=== PATIENT | female | born 1980 | race Caucasian/White ===

== ENCOUNTER 2017-06-21 20:12 | Emergency (ER) | payer OTHER, SELFPAY ==
[2017-06-21 20:48] VITALS: BP 130/86; PULSE 70; RESP 18; TEMP 36.4; O2SAT 100; BMI 37.2
--- NOTE | 2017-06-21 20:57 | HMH.EDUTC ---
[facility] [place] Disposition Clinical Impression: Sinusitis Qualifiers: Sinusitis location: other Chronicity: unspecified Qualified Code(s): J32.9 - Chronic sinusitis, unspecified Disposition: Home, Self-Care Condition on Discharge: Good Instructions: Sinusitis, Sinus Headache, DI for Sinusitis Additional Instructions: Follow up with family doctor if medication still not helping with sinus infection If you continued to have worsening of symptom or have blurred vison go to ER REturn if needed Take medication as prescribed Prescriptions: Doxycycline Monohydrate 100 mg PO BID #14 cap Fluticasone Propionate [Flonase 50mcg nasal spray 16gm] 2 spr NS DAILY #1 bottle Referrals: Ruthie Wright APRN [Primary Care Provider] - Forms: Work/School Release Time of Disposition: 21:11 Medical Decision Making - Medical Records Medical records reviewed: Yes: I reviewed the patient's medical records. Vital Signs: 06/21/17 20:48 Temperature 97.5 F L Temperature Source Temporal Artery Scan Pulse Rate [Right] 70 Respiratory Rate 18 Blood Pressure [Right Arm] 130/86 Blood Pressure Mean [Right Arm] 100 Blood Pressure Source [Right Arm] Automatic Cuff Blood Pressure Position [Right Arm] Sitting 02 Sat by Pulse Oximetry 100 Oxygen Delivery Method Room Air Orders (Tests/Meds): ED MEDICATIONS Discontinued Medications Generic Name Dose Route Start Last Admin Trade Name Jett PRN Reason Stop Dose Admin Ibuprofen 800 mg 06/21/17 21:07 Motrin 400mg Tablet PO 06/21/17 21:08 ONCE ONE Methylprednisolone Sodium Succinate 125 mg 06/21/17 21:05 Solu-Medrol 125mg/2ml Vial IM 06/21/17 21:06 ONCE ONE - Salbador Inquiry Pt receiving controlled substance: No Salbador was queried for this patient: No [facility] [place] HPI - General Stated complaint: Migraine Mode of Arrival: Ambulatory Source of Information: Patient Limitations: No Limitations Description of Symptoms (Recalled from Triage Doc. by RN): STATES SINUS INFECTION, HEADACHE FOR A MONTH, RECENT ZPACK HEENT Symptoms (Recalled from RN notes): Yes Resp Symptoms (Recalled from RN notes): No Skin Symptoms (Recalled from RN notes): No MS Symptoms (Recalled from RN notes): No Functional Status (Recalled from RN notes): N - History of Present Illness Provider Complaint: Patient state that she was seen about a month ago for sinus infection State that she was given a zpack state that it did not help and then she was diagnosed with strep throat and given another zpack state that she is still having sinus pain and pressure along with sinus headache States that she feels like it has continued to get worse and zpacks has not helped to clear it up State that she is having pain and pressure behind her eyes and even her teeth are hurting - Related Data Home Medications Medication Instructions Recorded Confirmed cholecalciferol (vitamin D3) 200 unit PO QDAY 05/31/17 50,000 unit capsule ibuprofen 800 mg tablet 800 mg PO ONCE 05/31/17 loratadine 10 mg tablet 10 mg PO QDAY 05/31/17 omeprazole 10 mg capsule,delayed 10 mg PO ONCE 05/31/17 release ustekinumab 45 mg/0.5 mL 45 mg SUB-Q .Every 3 months ml 05/31/17 subcutaneous syringe Previous Rx's Medication Instructions Recorded Doxycycline Monohydrate 100 mg PO BID #14 cap 06/21/17 Fluticasone Propionate [Flonase 2 spr NS DAILY #1 bottle 06/21/17 50mcg nasal spray 16gm] Allergies Allergy/AdvReac Type Severity Reaction Status Date / Time amoxicillin [AMOXICILLIN] Allergy Unknown Verified 05/31/17 14:00 - Worker's Comp Is this a Worker's Comp case?: No [facility] History I have reviewed the patient's past medical history: Yes Other Surgeries: Yes: Amputation: No Fractures: No - *Social History Smoking Status: Current every day smoker Tobacco Type: cigarettes # Packs/Day (cigarettes): 1 Alcohol Intake: never Substance Use Type: denies use - Psychiatric History Expresses tho
--- NOTE | 2017-06-21 21:05 | ED_ITS ---
[facility] [place] Disposition Clinical Impression: Sinusitis Qualifiers: Sinusitis location: other Chronicity: unspecified Qualified Code(s): J32.9 - Chronic sinusitis, unspecified Disposition: Home, Self-Care Condition on Discharge: Good Instructions: Sinusitis, Sinus Headache, DI for Sinusitis Additional Instructions: Follow up with family doctor if medication still not helping with sinus infection If you continued to have worsening of symptom or have blurred vison go to ER REturn if needed Take medication as prescribed Prescriptions: Doxycycline Monohydrate 100 mg PO BID #14 cap Fluticasone Propionate [Flonase 50mcg nasal spray 16gm] 2 spr NS DAILY #1 bottle Referrals: Ruthie Wright APRN [Primary Care Provider] - Forms: Work/School Release Time of Disposition: 21:11 Medical Decision Making - Medical Records Medical records reviewed: Yes: I reviewed the patient's medical records. Vital Signs: 06/21/17 20:48 Temperature 97.5 F L Temperature Source Temporal Artery Scan Pulse Rate [Right] 70 Respiratory Rate 18 Blood Pressure [Right Arm] 130/86 Blood Pressure Mean [Right Arm] 100 Blood Pressure Source [Right Arm] Automatic Cuff Blood Pressure Position [Right Arm] Sitting 02 Sat by Pulse Oximetry 100 Oxygen Delivery Method Room Air Orders (Tests/Meds): ED MEDICATIONS Discontinued Medications Generic Name Dose Route Start Last Admin Trade Name Jett PRN Reason Stop Dose Admin Ibuprofen 800 mg 06/21/17 21:07 Motrin 400mg Tablet PO 06/21/17 21:08 ONCE ONE Methylprednisolone Sodium Succinate 125 mg 06/21/17 21:05 Solu-Medrol 125mg/2ml Vial IM 06/21/17 21:06 ONCE ONE - Salbador Inquiry Pt receiving controlled substance: No Salbador was queried for this patient: No [facility] [place] HPI - General Stated complaint: Migraine Mode of Arrival: Ambulatory Source of Information: Patient Limitations: No Limitations Description of Symptoms (Recalled from Triage Doc. by RN): STATES SINUS INFECTION, HEADACHE FOR A MONTH, RECENT ZPACK HEENT Symptoms (Recalled from RN notes): Yes Resp Symptoms (Recalled from RN notes): No Skin Symptoms (Recalled from RN notes): No MS Symptoms (Recalled from RN notes): No Functional Status (Recalled from RN notes): N - History of Present Illness Provider Complaint: Patient state that she was seen about a month ago for sinus infection State that she was given a zpack state that it did not help and then she was diagnosed with strep throat and given another zpack state that she is still having sinus pain and pressure along with sinus headache States that she feels like it has continued to get worse and zpacks has not helped to clear it up State that she is having pain and pressure behind her eyes and even her teeth are hurting - Related Data Home Medications Medication Instructions Recorded Confirmed cholecalciferol (vitamin D3) 200 unit PO QDAY 05/31/17 50,000 unit capsule ibuprofen 800 mg tablet 800 mg PO ONCE 05/31/17 loratadine 10 mg tablet 10 mg PO QDAY 05/31/17 omeprazole 10 mg capsule,delayed 10 mg PO ONCE 05/31/17 release ustekinumab 45 mg/0.5 mL 45 mg SUB-Q .Every 3 months ml 05/31/17 subcutaneous syringe Previous Rx's Medication Instructions Recorded Doxycycl
== END 2017-06-21 21:24 | disposition home or self-care (01) ==
PROVIDERS: Emergency Provider Nurse Practitioner; Family Provider Emergency Medicine; PCP Nurse Practitioner Family
DX: J32.9 Chronic sinusitis, unspecified (principal); F17.210 Nicotine dependence, cigarettes, uncomplicated
CPT/HCPCS: 96372; 99201

== ENCOUNTER → 2018-08-23 16:44 | Outpatient (CLI) | payer BC, SELFPAY ==
--- NOTE | 2018-08-23 16:49 | XR_ITS ---
XR chest 2V HISTORY: Cough ITS.REASON: PSORIASIS, HIGH RISK MEDICATION MONITORING ORDERING PHYSICIAN: John Hall MD PATIENT AGE: 38 years Technique: PA and lateral chest COMPARISON: PA and lateral chest 03/16/2017 FINDINGS: No significant change since prior studies. Minimal density at the medial right base I believe is merely due to overlapping vascular shadows and unchanged since prior studiesdensity. Otherwise the lungs appear clear normal interstitial pattern. No pleural effusion. Heart seng and mediastinal structures satisfactory mild dextroscoliosis T-spine stable.. IMPRESSION: Stable chest nothing definitely acute.
== END ==
PROVIDERS: PCP Emergency Medicine; Visit Provider Emergency Medicine
DX: L40.0 Psoriasis vulgaris (principal); Z79.899 Other long term (current) drug therapy
CPT/HCPCS: 71046

== ENCOUNTER → 2018-08-27 11:21 | Outpatient (CLI) | payer BC, SELFPAY ==
[2018-08-27 12:15] LABS: Basophils % 0.3 % (0.1-2.0); Eosinophils # 0.3 K/mm3 (0.0-0.4); Eosinophils % 4.1 % (0.1-12.0); Hematocrit 41.7 % (37.0-47.0); Hemoglobin 13.7 g/dL (12.2-16.2); Lymphocytes # 1.7 K/mm3 (0.7-4.5); Mean Corpuscular HGB Conc 32.9 g/dL (31.8-35.4); Mean Corpuscular Hemoglobin 31.1 pg (27.0-31.2); Mean Corpuscular Volume 94.4 fl (81-99); Mean Platelet Volume 8.3 fl (7.4-10.4); Monocytes # 0.3 K/mm3 (0.1-1.0); Neutrophils # 5.3 K/mm3 (1.8-7.8); Neutrophils % 69.5 % (37.0-80.0); Platelet Count 254 K/mm3 (142-424); Red Blood Count 4.42 M/mm3 (4.20-5.40); Red Cell Distribution Width 13.1 % (11.5-17.5); White Blood Count 7.6 K/mm3 (4.8-10.8)
[2018-08-30 09:48] LABS: QuantiFERON-TB Gold Plus Negative (Negative)
== END ==
PROVIDERS: Visit Provider Physician Assistant Medical
DX: L40.0 Psoriasis vulgaris (principal); Z79.899 Other long term (current) drug therapy
CPT/HCPCS: 36415; 85025; 86480

== ENCOUNTER → 2019-08-29 15:28 | Outpatient (CLI) | payer BC, SELFPAY | PROVIDERS: Visit Provider Nurse Practitioner Family | DX: N39.0 Urinary tract infection, site not specified (principal) | CPT/HCPCS: 87086; 87088; 87186 ==

== ENCOUNTER 2019-12-06 00:21 | Emergency (ER) | payer BC, SELFPAY ==
[2019-12-06 00:32] VITALS: BP 140/96; PULSE 77; RESP 15; O2SAT 99; BMI 31.8
[2019-12-06 01:10] LABS: Urine Pregnancy, HCG Qual. Negative (Negative)
[2019-12-06 01:39] VITALS: BP 123/86; PULSE 70; RESP 15; O2SAT 99
--- NOTE | 2019-12-06 01:45 | HMH.EDHA ---
ED Disposition Clinical Impression: Migraine Qualifiers: Migraine type: with aura Status migrainosus presence: without status migrainosus Intractability: not intractable Qualified Code(s): G43.109 - Migraine with aura, not intractable, without status migrainosus Disposition: Home, Self-Care Condition on Discharge: Good Instructions: DI for Migraine Additional Instructions: call pcp for santi kevin Referrals: Ruthie Wright APRN [Primary Care Provider] - Forms: Work/School Release - Critical Care Critical Care Time: No Attestation: On 12/06/19, the high probability of a clinically significant, sudden or life threatening deterioration of the following system(s) required my full and direct attention, intervention and personal management. The time I documented below is in addition to time spent performing reported procedures but includes the following listed in this critical care notation. Medical Decision Making - Medical Records Medical records reviewed: Yes: I reviewed the patient's medical records. - Salbador Inquiry Pt receiving controlled substance: No Vital Signs: 12/06/19 00:32 12/06/19 01:39 12/06/19 02:01 Pulse Rate [Right Brachial] 77 70 65 Respiratory Rate 15 15 15 Blood Pressure [Right Arm] 140/96 H 123/86 106/69 L Blood Pressure Mean [Right Arm] 110 98 81 Blood Pressure Source [Right Arm] Automatic Cuff Automatic Cuff Automatic Cuff Blood Pressure Position [Right Arm] Sitting Sitting Sitting 02 Sat by Pulse Oximetry 99 99 99 Oxygen Delivery Method Room Air Room Air Room Air - Lab Data Lab Results 12/06/19 00:39: Urine HCG, Qual Negative Orders (Tests/Meds): ED MEDICATIONS Generic Name Dose Route Start Last Admin Trade Name Freq PRN Reason Stop Dose Admin Acetaminophen/Codeine Phosphate 1 stefan 12/06/19 02:20 Acetaminophen W/Codeine #3 Take Home Pack (6) PO 12/06/19 02:21 ONCE ONE Sodium Chloride 1,000 mls @ 999 mls/hr 12/06/19 00:45 12/06/19 01:39 Sod Chlor 0.9% 1000ml Bag IV 12/06/19 01:45 999 mls/hr .Q1H1M LARA Administration Sodium Chloride 8 ml 12/06/19 00:36 12/06/19 01:26 Sodium Chloride 0.9% 10ml Vial IV 01/05/20 00:35 8 ml NEEDED PRN Administration dilute pepcid Discontinued Medications Generic Name Dose Route Start Last Admin Trade Name Jett PRN Reason Stop Dose Admin Famotidine 20 mg 12/06/19 00:36 12/06/19 01:26 Pepcid 20mg/2ml Vial IV 12/06/19 00:37 20 mg ONCE ONE Administration Ketorolac Tromethamine 30 mg 12/06/19 00:36 12/06/19 01:27 Toradol 30mg/Ml Vial IV 12/06/19 00:37 30 mg ONCE ONE Administration Methylprednisolone Sodium Succinate 125 mg 12/06/19 00:36 12/06/19 01:27 Solu-Medrol 125mg/2ml Vial IV 12/06/19 00:37 125 mg ONCE ONE Administration Metoclopramide HCl 10 mg 12/06/19 00:36 12/06/19 01:26 Reglan 10mg/2ml Vial IVP 12/06/19 00:37 10 mg ONCE ONE Administration Ondansetron HCl 4 mg 12/06/19 00:36 12/06/19 01:27 Zofran 4mg/2ml Vial IV 12/06/19 00:37 4 mg ONCE ONE Administration Headache HPI - General Chief Complaint: Headache Stated Complaint: Migrane Headache Time Seen by Provider: 12/06/19 01:35 Mode of Arrival: Ambulatory Source of Information: Patient, Medical Record Limitations: No Limitations Description of Symptoms (Recalled from ER Triage Doc. by RN): Patient reports a migraine that she cant get any relief from after taking aleve. Patient reports she has a hx of migraines and gets them often. Patient reports she has an appt with a neurologist december 19. - History of Present Illness HPI Narrative: acute excerbation of migraine - has pending neuro eval with about 3 ahuja per week MD Complaint: migraine Onset (ago): hour(s) Onset description: gradual Location: diffuse Severity: similar to previous episodes Quality: sharp, similar to previous headaches Context: occurred at rest Associated symptoms: none Other symptoms: chest pain Tr
[2019-12-06 02:01] VITALS: BP 106/69; PULSE 65; RESP 15; O2SAT 99
[2019-12-06 02:27] VITALS: BP 118/67; PULSE 68; RESP 16; TEMP 36.6; O2SAT 99
== END 2019-12-06 02:27 | disposition home or self-care (01) ==
PROVIDERS: Emergency Provider Emergency Medicine; PCP Nurse Practitioner Family
DX: G43.109 Migraine with aura, not intractable, without status migrainosus (principal); Z88.1 Allergy status to other antibiotic agents; K21.9 Gastro-esophageal reflux disease without esophagitis; F17.210 Nicotine dependence, cigarettes, uncomplicated
CPT/HCPCS: 81025; 96365; 96375; 99282; J2405

== ENCOUNTER → 2020-01-20 08:56 | Outpatient (POV) | payer BC, SELFPAY | PROVIDERS: Visit Provider Nurse Practitioner Family | DX: Z00.00 Encounter for general adult medical examination without abnormal findings (principal) ==

== ENCOUNTER → 2020-02-20 10:25 | Outpatient (CLI) | payer BC, SELFPAY ==
[2020-02-20 13:24] LABS: Coronavirus 19 IgG Antibody Negative (Negative); Coronavirus 19 IgM Antibody Negative (Negative)
== END ==
PROVIDERS: Visit Provider Internal Medicine Gastroenterology
DX: Z01.89 Encounter for other specified special examinations (principal); Z12.11 Encounter for screening for malignant neoplasm of colon; Z13.810 Encounter for screening for upper gastrointestinal disorder; R19.7 Diarrhea, unspecified; R63.4 Abnormal weight loss
CPT/HCPCS: 36415; 86328

== ENCOUNTER 2020-02-21 08:19 | Day surgery (SDC) | payer BC, SELFPAY ==
[2020-02-18 08:55] VITALS: BMI 30.6
[2020-02-21] VITALS (7 sets, daily range): BP systolic 102–152; BP diastolic 54–91; PULSE 43–83; RESP 18; TEMP 36.2–36.4; O2SAT 93–100
[2020-02-21 09:11] LABS: Urine Pregnancy, HCG Qual. Negative (Negative)
--- NOTE | 2020-02-21 09:55 | HMH.PROC ---
[facility] Procedure Note Procedure Note:: Upper Endoscopy Procedure Report: Esophagogastroduodenoscopy with cold biopsies Endoscopost: Garrick Haro II, MD Referring Physician: Carolyn MCDANIELS Date of Procedure: February 21, 2020 Equipment: Olympus GIF 180 standard upper endoscope Sedation: MAC sedation Indications: Mrs. Swain is a 39-year-old female with dyspepsia. She has had nausea, bloating and abdominal discomfort. She has had a long history of heartburn and reflux for which she has taken omeprazole. She did have gallbladder removal in 2009. She reports some belching and early satiety. She does report bowel irregularity with postprandial bowel urgency and diarrhea. She also has a history of occasional constipation and skipping days without a bowel movement. She is having on average 4 loose watery bowel movements per day but can have up to 12 bowel movements per day. She had a CAT scan in May 2019 that showed a marked amount of fecal retention. This is her first upper endoscopy. Procedure: Prior to the procedure, a history and physical exam was performed, and patient's medications and allergies were reviewed. The risks, benefits and alternatives of the sedation and procedure were discussed with the patient. All questions were answered and informed consent was obtained. The patient was brought to the procedure room. Patient identification and proposed procedure were verified by the physician and the nurse. The patient was placed in a left lateral decubitus position and the scope was passed under direct vision. Throughout the procedure, the patient's blood pressure, pulse, and oxygen saturations were monitored continuously. The upper GI endoscopy was accomplished without difficulty. The patient tolerated the procedure well. Findings: The scope was passed directly into the upper esophagus and advanced to the third portion of the duodenum. The post bulbar duodenum and duodenal bulb were normal with normal mucosa and conniventes. Cold biopsies were taken from the post bulbar duodenum to rule out celiac disease. The scope was withdrawn through a normal duodenal bulb and pylorus into the stomach. There was moderate to marked bile reflux with moderate linear reactive gastropathy of the antrum and body of the stomach. There was some gastric atrophy/atrophic gastritis with loss of rugal folds and increased vascular pattern in the body and fundus of the stomach. Biopsies were taken from the gastric antrum separately from biopsies taken from the gastric fundus to rule out atrophic gastritis. Upon retroflexion there was no hiatal hernia. The scope was then withdrawn into the esophagus. There was a serrated Z line. Biopsies were obtained. There was no evidence of reflux esophagitis or Bell's. There were tertiary contractions and evidence of moderate esophageal dysmotility. The remainder of the esophageal mucosa was normal. Impression: 1. Nonerosive GERD with moderate esophageal dysmotility 2. Bile reflux with moderate linear reactive gastropathy and mild chronic atrophic gastritis Plan: I will follow-up the biopsies. I do feel that the patient has functional dyspepsia and functional bowel disease/IBS. We will discuss dietary measures and treatment options. I will proceed with diagnostic colonoscopy.
--- NOTE | 2020-02-21 09:58 | P.PN_ITS ---
[facility] Anesthesia Checklist - Patient Identification Patient Identification: Arm Band, Verbal (Name & ) - Structural Data Admitted From: Home Planned Operative Procedure/s: EGD/Colonoscopy Consent for Planned Operative Procedure(s) Verified: Yes Verified Documents: Surgical Consent, History and Physical - NPO Status Verified Time NPO: 00:00 - Chart Verification Results Verified: HCG - Additional verifications Patient : No Anesthesia Reactions: No - Airway Assessment C-Spine Mobility Assessed: Yes TMJ Mobility Assessed: Yes Dentition: Edentulous - Neurological Assessment Level of Consciousness: Awake, Alert, Appropriate, Follows Commands Hx Seizures: No Numbness or tingling in extremities: No - Anesthesia Plan Anesthesia Risk discussed: Yes Anesthesia Plan: Verified ASA Class: II Anesthesia Type: MAC [facility] History I have reviewed the patient's past medical history: Yes Medical History: Reports:: Anxiety, Gastroesophageal Reflux Disease(GERD), Migraine Denies:: Cancer, Diabetes Mellitus Type 1, Diabetes Mellitus Type 2, Hypertension, MRSA, Seizures *Have you ever received a pneumonia vaccine?: No *Have you received a flu vaccine this season?: No Other Medical History: Reports: Arthritis, Other Comment:: Obesity Anesthesia experience/problems:: States she has difficulty breathing under anesthesia Other Surgeries: Yes: Cholecystectomy, Amputation: No Fractures: No - *Social History Smoking Status: Current every day smoker Tobacco Type: cigarettes # Packs/Day (cigarettes): 1 Alcohol Intake: current Alcohol Intake Frequency:: holidays/special occasions only Substance Use Type: denies use *Occupational Status:: employed Housing: house Household Members: family *Travel in the last 8 weeks: None - Psychiatric History Pschychiatric History:: Reports:: Anxiety Family Hx:: Diabetes, Cancer, Stroke, Hypertension, Heart Attack
--- NOTE | 2020-02-21 10:19 | HMH.PROC ---
[facility] Procedure Note Procedure Note:: Colonoscopy Procedure Report: Colonoscopy with cold snare polypectomy Endoscopist: Garrick Haro II, MD Referring physician: Carolyn MCDANIELS Date of Procedure: February 21, 2020 Equipment: Olympus 180 variable stiffness pediatric colonoscope Sedation: MAC sedation Indication: Mrs. Swain is a 39-year-old female with abdominal discomfort (generalized) and abnormal bowel function. She does have postprandial bowel urgency and diarrhea. She has intermittent alternating constipation. Her CAT scan of the abdomen in May 2019 showed fecal retention. She reports no rectal bleeding or family history of colon cancer. Procedure: Prior to the procedure, a history and physical exam was performed, and patient's medications and allergies were reviewed. The risks, benefits and alternatives of the sedation and procedure were discussed with the patient. All questions were answered and informed consent was obtained. The patient was brought to the procedure room. Patient identification and proposed procedure were verified by the physician and the nurse. The patient was placed in a left lateral decubitus position and the scope was passed under direct vision. Throughout the procedure, the patient's blood pressure, pulse, and oxygen saturations were monitored continuously. The colonoscopy was accomplished without difficulty. The patient tolerated the procedure well. Findings: On digital rectal examination there was normal rectal tone. There were no external hemorrhoids. The colonoscope was introduced through the anal canal to the rectum and advanced to the cecum. The ileocecal valve and appendiceal orifice were identified. The scope was advanced a short distance into the ileum which appeared grossly normal. The scope was then withdrawn into the colon. The cecum was normal. There was some diverticulosis on the right side greater than the left side. There was a diminutive polyp in the transverse colon x1 (4 mm) and rectosigmoid x1 (2 to 3 mm). Both were removed via cold snare polypectomy. The rectosigmoid polyp was very small and not retrieved. The remainder of the colonic mucosa was normal with no other mucosal abnormalities identified. Upon retroflexion within the rectum there were grade 1-2 internal hemorrhoids.The preparation was excellent throughout with [place] Preparation Score of 9. The cecal time was 12 minutes. Impression: 1. Diminutive colonic polyps x2 2. Pandiverticulosis (right side greater than left side) 3. Grade 1-2 internal hemorrhoids Plan: I will follow-up the polyp histology and recommend repeat screening/surveillance in 5 years if the polyp is adenomatous. I would encourage a fiber bowel regimen on a long-term daily maintenance basis.
== END 2020-02-21 11:15 | disposition home or self-care (01) ==
LOC: OUTP 08:22
PROVIDERS: PCP Emergency Medicine; Visit Provider Internal Medicine Gastroenterology
PROC: 0DJ08ZZ Inspection of Upper Intestinal Tract, Via Natural or Artificial Opening Endoscopic (ICD-10-PCS; CPT 43235; principal; 2020-02-21 09:00)
DX: K21.9 Gastro-esophageal reflux disease without esophagitis (principal); K22.4 Dyskinesia of esophagus; K31.9 Disease of stomach and duodenum, unspecified; K29.40 Chronic atrophic gastritis without bleeding; G43.709 Chronic migraine without aura, not intractable, without status migrainosus; Z88.1 Allergy status to other antibiotic agents; Z88.5 Allergy status to narcotic agent; Z79.899 Other long term (current) drug therapy
CPT/HCPCS: 43239; 81025

== ENCOUNTER → 2020-04-09 14:16 | Outpatient (CLI) | payer BC, SELFPAY | PROVIDERS: PCP Nurse Practitioner Family; Visit Provider Nurse Practitioner Family | DX: Z03.818 Encounter for observation for suspected exposure to other biological agents ruled out (principal) | CPT/HCPCS: U0003 ==

== ENCOUNTER → 2021-03-31 15:23 | Outpatient (CLI) | payer BC, SELFPAY ==
[2021-03-31 15:35] LABS: Basophils # 0.1 K/mm3 (0-0.2); Basophils % 0.9 % (0.1-2.0); Eosinophils # 0.3 K/mm3 (0.0-0.4); Eosinophils % 3.2 % (0.1-12.0); Hematocrit 42.7 % (37.0-47.0); Lymphocytes # 2.9 K/mm3 (0.7-4.5); Lymphocytes % 28.2 % (10-50); Mean Corpuscular HGB Conc 32.8 g/dL (31.8-35.4); Mean Corpuscular Hemoglobin 32.2 pg (27.0-31.2); Mean Corpuscular Volume 98.2 fl (81-99); Mean Platelet Volume 10.9 fl (7.4-10.4); Monocytes # 0.6 K/mm3 (0.1-1.0); Monocytes % 5.5 % (1.7-9.3); Neutrophils # 6.4 K/mm3 (1.8-7.8); Neutrophils % 62.3 % (37.0-80.0); Platelet Count 311 K/mm3 (142-424); Red Blood Count 4.34 M/mm3 (4.20-5.40); Red Cell Distribution Width 13.5 % (11.5-17.5); White Blood Count 10.3 K/mm3 (4.8-10.8)
[2021-03-31 15:49] LABS: Chloride 108 mmol/L (98-107)
[2021-03-31 15:50] LABS: Potassium 3.9 mmoL/L (3.5-5.1); Sodium 142 mmol/L (136-145)
[2021-03-31 15:52] LABS: Blood Urea Nitrogen 10 mg/dl (7-17); Estimated Glomerular Filt Rate 111 ml/min (>60); GFR (African American) 134 ML/MIN (>60)
[2021-03-31 15:53] LABS: Alanine Aminotransferase 14 U/L (12-78); Albumin/Globulin Ratio 1.4 (1.1-1.8); Alkaline Phosphatase 84 U/L (38-126); Anion Gap 13.9 mEq/L (5-15); Aspartate Amino Transferase 21 U/L (14-36); Bilirubin,Total 0.5 mg/dl (0.2-1.3); Calcium 9.3 mg/dl (8.4-10.2); Carbon Dioxide 24 mmol/L (22.0-30.0); Chol/HDL Ratio 3.9 (1-3.5); Cholesterol 202 mg/dl (140-200); Globulin 2.9 g/dL (1.3-3.2); Glucose 74 mg/dl (74-100); HDL Cholesterol 52 mg/dl (40-60); Total Protein,Serum 6.9 g/dl (6.3-8.2); Triglycerides 168 mg/dl (30-150); VLDL Cholesterol 34 mg/dL (0-40)
[2021-03-31 16:04] LABS: Direct LDL Cholesterol 133.22 mg/dL (100-129)
[2021-03-31 16:10] LABS: T4 (Thyroxine) 7.8 ug/dl (5.53-11.0)
[2021-03-31 16:19] LABS: 25-OH Vitamin D, Total 22.6 ng/mL (30-100)
== END ==
PROVIDERS: Visit Provider Nurse Practitioner Family
DX: I10 Essential (primary) hypertension (principal); E55.9 Vitamin D deficiency, unspecified
CPT/HCPCS: 80053; 80061; 82306; 84436; 84443; 85025

== ENCOUNTER → 2021-08-02 15:48 | Outpatient (CLI) | payer BC, SELFPAY ==
--- NOTE | 2021-08-02 16:27 | XR_ITS ---
PROCEDURE INFORMATION: Exam: XR Left Foot Exam date and time: 08/02/2021 4:27 PM Age: 41 years old Clinical indication: Pain; Foot; Left; Additional info: Foot pain TECHNIQUE: Imaging protocol: XR Left foot. Views: 3 or more views. COMPARISON: No relevant prior studies available. FINDINGS: Bones/joints: There is no evidence of acute fracture. There is no evidence of joint malalignment or dislocation. Soft tissues: No focal soft tissue swelling. IMPRESSION: 1. No evidence of acute fracture. 2. No evidence of acute dislocation.
--- NOTE | 2021-08-02 16:27 | XR_ITS ---
PROCEDURE INFORMATION: Exam: XR Left Ankle Exam date and time: 08/02/2021 4:27 PM Age: 41 years old Clinical indication: Pain; Ankle; Left TECHNIQUE: Imaging protocol: XR Left ankle. Views: 3 or more views. COMPARISON: No relevant prior studies available. FINDINGS: Bones/joints: There is no evidence of acute fracture. There is no evidence of joint malalignment or dislocation. Soft tissues: No focal soft tissue swelling. IMPRESSION: 1. No evidence of acute fracture. 2. No evidence of acute dislocation.
[2021-08-02 16:54] LABS: Basophils # 0.1 K/mm3 (0-0.2); Eosinophils # 0.2 K/mm3 (0.0-0.4); Eosinophils % 3.3 % (0.1-12.0); Hemoglobin 14.8 g/dL (12.2-16.2); Lymphocytes # 2.7 K/mm3 (0.7-4.5); Lymphocytes % 37.4 % (10-50); Mean Corpuscular HGB Conc 32.1 g/dL (31.8-35.4); Mean Corpuscular Hemoglobin 31.6 pg (27.0-31.2); Mean Corpuscular Volume 98.3 fl (81-99); Monocytes # 0.4 K/mm3 (0.1-1.0); Neutrophils # 3.8 K/mm3 (1.8-7.8); Neutrophils % 52.3 % (37.0-80.0); Platelet Count 288 K/mm3 (142-424); Red Blood Count 4.68 M/mm3 (4.20-5.40); Red Cell Distribution Width 13.5 % (11.5-17.5); White Blood Count 7.2 K/mm3 (4.8-10.8)
[2021-08-02 17:25] LABS: Alanine Aminotransferase 20 U/L (12-78); Albumin Level 4.2 g/dl (3.5-5.0); Albumin/Globulin Ratio 1.4 (1.1-1.8); Alkaline Phosphatase 85 U/L (38-126); Anion Gap 10.3 mEq/L (5-15); Aspartate Amino Transferase 21 U/L (14-36); Bilirubin,Total 0.6 mg/dl (0.2-1.3); Blood Urea Nitrogen 9 mg/dl (7-17); Carbon Dioxide 26 mmol/L (22.0-30.0); Chloride 106 mmol/L (98-107); Estimated Glomerular Filt Rate 93 ml/min (>60); GFR (African American) 112 ML/MIN (>60); Glucose 86 mg/dl (74-100); Potassium 4.3 mmoL/L (3.5-5.1); Sodium 138 mmol/L (136-145); Total Protein,Serum 7.2 g/dl (6.3-8.2)
[2021-08-02 17:31] LABS: C-Reactive Protein 10.5 mg/L (0-4)
[2021-08-02 17:36] LABS: Erythrocyte Sedimentation Rate 17 mm/hr (0-20)
[2021-08-04 13:12] LABS: Anti-Centromere B Antibodies <0.2 AI (0.0-0.9); Anti-DNA (DS) Ab Qn <1 IU/mL (0-9); Anti-Jo-1 <0.2 AI (0.0-0.9); Anti-Smith Antibody <0.2 AI (0.0-0.9); Antichromatin Antibodies <0.2 AI (0.0-0.9); Antiscleroderma-70 Antibodies <0.2 AI (0.0-0.9); RNP Antibodies <0.2 AI (0.0-0.9); Sjogren's Anti-SS-A <0.2 AI (0.0-0.9); Sjogren's Anti-SS-B <0.2 AI (0.0-0.9)
[2021-08-04 17:20] LABS: Lupus Reflex Interpretation Comment: (.); PTT-LA 36.8 sec (0.0-51.9); dRVVT 43.9 sec (0.0-47.0)
== END ==
PROVIDERS: PCP Emergency Medicine; Visit Provider Nurse Practitioner Family
DX: M25.572 Pain in left ankle and joints of left foot (principal); R53.83 Other fatigue; M25.50 Pain in unspecified joint
CPT/HCPCS: 36415; 73610; 73630; 80053; 85025; 85613; 85651; 86140; 86225; 86235

== ENCOUNTER 2021-08-02 16:16 | Outpatient (RCR) | payer BC, SELFPAY | END 2021-08-02 17:00 | disposition home or self-care (01) | LOC: PT 16:16 | PROVIDERS: Visit Provider Nurse Practitioner Family | DX: M79.605 Pain in left leg (principal) | CPT/HCPCS: 97760 ==

== ENCOUNTER 2021-08-04 13:43 | Emergency (ER) | payer BC, SELFPAY ==
[2021-08-04 13:45] VITALS: BP 152/83; PULSE 74; RESP 18; TEMP 36.7; O2SAT 97; BMI 33.6
--- NOTE | 2021-08-04 14:09 | HMH.EDGENADL ---
ED Disposition Clinical Impression: Chronic pain of left ankle Disposition: Home, Self-Care Condition on Discharge: Good Instructions: DI for Ankle Pain Additional Instructions: Continue orthopedic boot. Toradol as prescribed. Do not take ibuprofen while taking Toradol. Follow-up with podiatry, Dr. Burnham. Call to make an appointment. Prescriptions: Ketorolac Tromethamine [Toradol 10mg tablet] 10 mg PO Q6HP PRN #10 tab PRN Reason: Moderate Pain Transmission Status: Pending to [id number] Referrals: John Hall MD [Primary Care Provider] - Tiffany Burnham DPM [Staff Physician] - Forms: Work/School Release - Critical Care Critical Care Time: No Attestation: On 08/04/21, the high probability of a clinically significant, sudden or life threatening deterioration of the following system(s) required my full and direct attention, intervention and personal management. The time I documented below is in addition to time spent performing reported procedures but includes the following listed in this critical care notation. Medical Decision Making - Medical Records Medical records reviewed: Yes: I reviewed the patient's medical records. MR Comment: Reviewed x-ray reports from 08/02/2021, ankle and foot. See below. - Salbador Inquiry Pt receiving controlled substance: No Vital Signs: 08/04/21 13:45 Temperature 98.1 F Temperature Source Oral Pulse Rate [Right Radial] 74 Respiratory Rate 18 Blood Pressure [Right Arm] 152/83 H Blood Pressure Mean [Right Arm] 106 Blood Pressure Source [Right Arm] Automatic Cuff Blood Pressure Position [Right Arm] Sitting 02 Sat by Pulse Oximetry 97 Oxygen Delivery Method Room Air Orders (Tests/Meds): PROCEDURE INFORMATION: Exam: XR Left Foot Exam date and time: 08/02/2021 4:27 PM Age: 41 years old Clinical indication: Pain; Foot; Left; Additional info: Foot pain TECHNIQUE: Imaging protocol: XR Left foot. Views: 3 or more views. COMPARISON: No relevant prior studies available. FINDINGS: Bones/joints: There is no evidence of acute fracture. There is no evidence of joint malalignment or dislocation. Soft tissues: No focal soft tissue swelling. IMPRESSION: 1. No evidence of acute fracture. 2. No evidence of acute dislocation. EDURE INFORMATION: Exam: XR Left Ankle Exam date and time: 08/02/2021 4:27 PM Age: 41 years old Clinical indication: Pain; Ankle; Left TECHNIQUE: Imaging protocol: XR Left ankle. Views: 3 or more views. COMPARISON: No relevant prior studies available. FINDINGS: Bones/joints: There is no evidence of acute fracture. There is no evidence of joint malalignment or dislocation. Soft tissues: No focal soft tissue swelling. IMPRESSION: 1. No evidence of acute fracture. 2. No evidence of acute dislocation. General Adult HPI - General Chief complaint: PAIN Stated complaint: left ankle pain, no recent accident Time Seen by Provider: 08/04/21 14:09 Mode of Arrival: Ambulatory Limitations: No Limitations Description of Symptoms (Recalled from ER Triage Doc. by RN): Pt c/o L ankle pain, no recent injury, reports an old fracture several years ago. Pt reports worsening pain over the past month. Pt describes pain as burning and aching. - History of Present Illness HPI narrative: Complains of left ankle pain. She has chronic left ankle pain since she fractured it about 10 years ago. She describes a spiral fracture. 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 Because of that she thinks that it never healed right and she has had chronic pain ever since. However, recently the pain has gotten worse. She describes a burning sensation in the region of both malleoli and around the back of t
[2021-08-04 14:42] VITALS: BP 123/65; PULSE 78; RESP 16; TEMP 36.6; O2SAT 98
== END 2021-08-04 14:43 | disposition home or self-care (01) ==
PROVIDERS: Emergency Provider Emergency Medicine; PCP Emergency Medicine
DX: M25.572 Pain in left ankle and joints of left foot (principal); K21.9 Gastro-esophageal reflux disease without esophagitis; F41.9 Anxiety disorder, unspecified; G43.709 Chronic migraine without aura, not intractable, without status migrainosus; F17.210 Nicotine dependence, cigarettes, uncomplicated; Z79.899 Other long term (current) drug therapy
CPT/HCPCS: 96372; 99283

== ENCOUNTER → 2021-08-13 16:00 | Outpatient (CLI) | payer BC, SELFPAY ==
[2021-08-13 14:51] LABS: Chol/HDL Ratio 3.3 (1-3.5); Cholesterol 209 mg/dl (140-200); HDL Cholesterol 63 mg/dl (40-60); Triglycerides 64 mg/dl (30-150); VLDL Cholesterol 13 mg/dL (0-40)
[2021-08-13 15:01] LABS: Direct LDL Cholesterol 119.95 mg/dL (100-129)
[2021-08-13 15:10] LABS: 25-OH Vitamin D, Total 18.6 ng/mL (30-100)
[2021-08-13 15:23] LABS: Thyroid Stimulating Hormone 4.09 uIU/mL (0.465-4.68)
== END ==
PROVIDERS: Visit Provider Nurse Practitioner Family
DX: I10 Essential (primary) hypertension (principal); E55.9 Vitamin D deficiency, unspecified; Z79.899 Other long term (current) drug therapy
CPT/HCPCS: 80061; 82306; 84443

== ENCOUNTER → 2021-09-16 13:27 | Outpatient (CLI) | payer BC, SELFPAY ==
--- NOTE | 2021-09-16 13:27 | MR_ITS ---
FINAL REPORT CLINICAL HISTORY: left ankle pain x10 years first injury x 9 years pain when walking and standing for long periods of time FINDINGS: Multiplanar MR imaging of the left ankle was performed without contrast. The bony structures are intact without evidence of fracture. There is pes planus deformity. The mortise is intact. There is an os trigonum measuring 1.2 cm. Edema is seen within the os trigonum. The ligaments are intact without evidence of injury. The flexor and extensor tendons are intact. The posterior plantar aponeurosis is intact. Small joint effusion is seen. The musculature is intact. There is no evidence of soft tissue mass or cyst. IMPRESSION: Pes planus deformity and mild joint effusion. Reviewed, Interpreted and Dictated by Sarmad Shah MD Transcribed by Elle Herron Authenticated by Sarmad Shah MD on 09/16/2021 04:37:[address] [facility]
== END ==
PROVIDERS: PCP Emergency Medicine; Visit Provider Podiatrist
DX: M25.572 Pain in left ankle and joints of left foot (principal); M79.672 Pain in left foot
CPT/HCPCS: 73721

== ENCOUNTER → 2021-10-21 15:38 | Outpatient (CLI) | payer BC, SELFPAY | PROVIDERS: PCP Emergency Medicine; Visit Provider Nurse Practitioner Family | DX: R06.00 Dyspnea, unspecified (principal); R07.9 Chest pain, unspecified; R42 Dizziness and giddiness; R00.2 Palpitations; R20.0 Anesthesia of skin; R20.2 Paresthesia of skin | CPT/HCPCS: 36415; 83735; 85025; 93270 ==

== ENCOUNTER 2022-01-09 18:53 | Emergency (ER) | payer BC, SELFPAY ==
[2022-01-09 19:15] VITALS: BP 147/90; PULSE 89; RESP 21; TEMP 37; O2SAT 98; BMI 33.6
--- NOTE | 2022-01-09 19:30 | HMH.EDUTC ---
[facility] [place] Disposition Clinical Impression: Chest discomfort Disposition: Still a Patient Condition on Discharge: Fair Referrals: John Hall MD [Primary Care Provider] - Time of Disposition: 19:38 Medical Decision Making - Salbador Inquiry Pt receiving controlled substance: No Salbador was queried for this patient: No Vital Signs: 01/09/22 19:15 Temperature 98.6 F Temperature Source Oral Pulse Rate [Right Brachial] 89 Respiratory Rate 21 Blood Pressure [Right Arm] 147/90 H Blood Pressure Mean [Right Arm] 109 Blood Pressure Source [Right Arm] Automatic Cuff Blood Pressure Position [Right Arm] Sitting 02 Sat by Pulse Oximetry 98 Oxygen Delivery Method Room Air Medical Decision Narrative: Due to patient complaining of pain/pressure in her chest, SOA, Nausea and pain in her abdomen with indigestion and patient reporting this is not like her normal GERD symptoms discussed with patient and will transfer to the ED for further work up and evaluation and patient agreed Called ED Spoke with Bibiana and patient was moved to room 4 [facility] [place] HPI - General Stated complaint: cough,runny nose,sabino Time Seen by Provider: 01/09/22 19:20 Mode of Arrival: Ambulatory Source of Information: Patient Limitations: No Limitations Description of Symptoms (Recalled from Triage Doc. by RN): PATIENT C/O CHEST PAIN/PRESSURE, INDIGESTION, FOUL-SMELLING BURPS, INTERMITTEN SOA, AND LEFT ABDOMINAL PAIN SINCE MONDAY HEENT Symptoms (Recalled from RN notes): No Resp Symptoms (Recalled from RN notes): No Skin Symptoms (Recalled from RN notes): No MS Symptoms (Recalled from RN notes): No Functional Status (Recalled from RN notes): WNL - History of Present Illness Provider Complaint: Patient states that she started on Mon with pain/pressure like feeling in chest States that she has GERD but this doesnt feel like that States that she has been having SOA on and off, sharp pain in her left side of abdomen and pressure like feeling in her upper abdomen States that also she has been having foul smelling burps and feels like you can smell it on her breath States that pain was worse yesterday and she had a burning like feeling in her chest States that she has felt like her breathing was a little better after hot shower felt like it opened her up but still having the pain and pressure in her chest and abdomen so she came in - Related Data Home Medications Medication Instructions Recorded Confirmed ibuprofen 600 mg tablet 600 mg PO DAILY tab 12/18/19 10/21/21 omeprazole 20 mg capsule,delayed 20 mg PO DAILY 12/18/19 10/21/21 release fexofenadine 180 mg tablet 180 mg PO DAILY 04/09/20 10/21/21 Previous Rx's Medication Instructions Recorded escitalopram oxalate 10 mg tablet 10 mg PO DAILY #30 tab 03/31/21 diclofenac sodium 1 % topical gel 2 g TOPICAL QID #100 g 08/02/21 Ketorolac Tromethamine [Toradol 10 mg PO Q6HP PRN #10 tab 08/04/21 10mg tablet] cholecalciferol (vitamin D3) 1,250 1,250 mcg PO WEEKLY #7 tab 08/18/21 mcg (50,000 unit) tablet Allergies Allergy/AdvReac Type Severity Reaction Status Date / Time amoxicillin [AMOXICILLIN] Allergy Unknown Verified 10/21/21 14:52 morphine AdvReac Intermediate Vomiting Verified 10/21/21 14:52 - Worker's Comp Is this a Worker's Comp case?: No [facility] History - Hepatitis A Screen Attestation statement:: This patient has been screened for Hepatitis A risk factors. I have reviewed the patient's past medical history: Yes Medical History: Reports:: Anxiety, Gastroesophageal Reflux Disease(GERD), Migraine Denies:: Cancer, Diabetes Mellitus Type 1, Diabetes Mellitus Type 2, Hypertension, MRSA, Seizures Other Medical History: Reports: Arthritis, Other Comment: Obesity Other Surgeries: Yes: Cholecystectomy, Colonoscopy, Amputation: No Fractures: No Comment: Gallbladder Removal - Social History Smoking Status: Current every day smoker Tobacco Type: cigarettes # Packs/Day
--- NOTE | 2022-01-09 19:30 | PC.NURSE ---
PATIENT SENT TO ER PER Kaye COATES APRN FOR FUTHER EVALUATION. REPORT GIVEN TO Catherine DE LEÓN RN BY Kaye COATES APRN
[2022-01-09 19:36] LABS: Microscopic, Urine URINE MICROSCOPIC (MICROSCOPIC)
[2022-01-09 19:39] LABS: Appearance,Urine CLEAR (Clear); Blood, Urine 2+ (Negative); Color,Urine AMBER (Yellow); Glucose,Urine (UA) Negative (Negative); Ketones,Urine TRACE (Negative); Leukocyte Esterase,Urine Negative (Negative); Nitrate,Urine Negative (Negative); Protein,Urine TRACE (Negative); Specific Gravity, Urine >= 1.030 (1.005-1.030)
[2022-01-09 19:46] LABS: Bilirubin,Urine Negative (Negative)
[2022-01-09 19:47] LABS: Amorphous Sediment,Urine 1+ /lpf; Mucus,Urine 4+ /lpf; WBC,Urine Occasional #/hpf (0-3)
[2022-01-09 19:49] VITALS: BP 136/93; PULSE 65; RESP 18; TEMP 36.6; O2SAT 97; BMI 33.6
--- NOTE | 2022-01-09 19:56 | ECG_ITS ---
APPROVED REPORT Exam: Resting ECG HR:57 bpm ECG Measurements Heart Rate 57 AXES IN 148 P 55 QRSd 88 QRS 29 QT 388 T 40 QTc 382 Conclusion SINUS BRADYCARDIA WITH SINUS ARRHYTHMIA LOW QRS VOLTAGE IN PRECORDIAL LEADS [QRS DEFLECTION < 1.0 mV IN CHEST LEADS] BORDERLINE ECG UNCONFIRMED REPORT Electronically signed by : Tru Harper MD 01/11/2022 21:29:53
--- NOTE | 2022-01-09 19:56 | XR_ITS ---
PROCEDURE INFORMATION: Exam: XR Chest Exam date and time: 01/09/2022 8:02 PM Age: 41 years old Clinical indication: Sternal or substernal pain; Additional info: Cp TECHNIQUE: Imaging protocol: Radiologic exam of the chest. Views: 2 views. COMPARISON: CR CXR2V XR chest 2V 08/23/2018 4:51 PM FINDINGS: Lungs: No consolidation. Pleural spaces: No pneumothorax. Heart/Mediastinum: No cardiomegaly. Bones/joints: Scoliosis. IMPRESSION: No acute findings. PROCEDURE INFORMATION: Exam: XR Abdomen Exam date and time: 01/09/2022 8:02 PM Age: 41 years old Clinical indication: Sternal or substernal pain; Additional info: Cp TECHNIQUE: Imaging protocol: Radiologic exam of the abdomen. Views: 2 Views. Upright and supine views. COMPARISON: CT ABDOMEN PELVIS WO CON 06/09/2019 2:00 PM FINDINGS: Gastrointestinal tract: Normal. No bowel dilation. Intraperitoneal space: Post cholecystectomy change. No free air. Bones/joints: Scoliosis. IMPRESSION: No acute findings.
[2022-01-09 20:15] LABS: Alanine Aminotransferase 31 U/L (12-78); Albumin Level 4.1 g/dl (3.5-5.0); Albumin/Globulin Ratio 1.1 (1.1-1.8); Alkaline Phosphatase 81 U/L (38-126); Amylase 57 U/L (30-110); Anion Gap 9.5 mEq/L (5-15); Aspartate Amino Transferase 40 U/L (14-36); Bilirubin,Total 0.8 mg/dl (0.2-1.3); Blood Urea Nitrogen 6 mg/dl (7-17); Calcium 9.1 mg/dl (8.4-10.2); Carbon Dioxide 27 mmol/L (22.0-30.0); Chloride 107 mmol/L (98-107); Creatinine Clearance Estimated 145 mL/min (50-200); Estimated Glomerular Filt Rate 93 ml/min (>60); GFR (African American) 112 ML/MIN (>60); Globulin 3.7 g/dL (1.3-3.2); Glucose 95 mg/dl (74-100); Potassium 4.5 mmoL/L (3.5-5.1); Sodium 139 mmol/L (136-145); Total Protein,Serum 7.8 g/dl (6.3-8.2)
[2022-01-09 20:18] LABS: Lipase 35 U/L (23-300)
[2022-01-09 20:21] LABS: C-Reactive Protein 8.2 mg/L (0-4)
[2022-01-09 20:28] LABS: Erythrocyte Sedimentation Rate 17 mm/hr (0-20)
[2022-01-09 20:31] VITALS: BP 117/69; PULSE 48; RESP 14; O2SAT 97
[2022-01-09 20:34] LABS: Troponin I < 0.01 ng/ml (0.00-0.034)
[2022-01-09 21:00] VITALS: BP 106/64; PULSE 47; RESP 17; O2SAT 99
--- NOTE | 2022-01-09 21:07 | CT_ITS ---
PROCEDURE INFORMATION: Exam: CT Abdomen And Pelvis With Contrast Exam date and time: 01/09/2022 9:15 PM Age: 41 years old Clinical indication: Abdominal pain; Generalized; Prior surgery; Surgery date: 6+ months; Surgery type: C section and gb; Additional info: Abd pain TECHNIQUE: Imaging protocol: Computed tomography of the abdomen and pelvis with contrast. Radiation optimization: All CT scans at this facility use at least one of these dose optimization techniques: automated exposure control; mA and/or kV adjustment per patient size (includes targeted exams where dose is matched to clinical indication); or iterative reconstruction. Contrast material: ISOVUE; Contrast volume: 75 ml; Contrast route: IV; COMPARISON: CT ABDOMEN PELVIS WO CON 06/09/2019 2:00 PM FINDINGS: Liver: Diffuse low attenuation of the liver most likely secondary to fatty infiltration. Gallbladder and bile ducts: Post cholecystectomy change. Pancreas: Normal enhancement. No ductal dilation. Spleen: No splenomegaly. Adrenal glands: No mass. Kidneys and ureters: Hypoattenuating renal lesions too small to characterize. No hydronephrosis. Stomach and bowel: Potential wall thickening of the colon which is decompressed and not well evaluated. Appendix: No evidence of appendicitis. Intraperitoneal space: No free air. No significant fluid collection. Vasculature: No abdominal aortic aneurysm. Lymph nodes: No enlarged lymph nodes. Urinary bladder: No acute abnormality. Reproductive: No acute abnormality. Bones/joints: Mild curvature of the spine on AP projection. No acute fracture. Soft tissues: 10 mm fat containing periumbilical hernia. Extensive subcutaneous adipose extending beyond the field of view. IMPRESSION: 1. Diffuse low attenuation of the liver most likely secondary to fatty infiltration. 2. Potential wall thickening of the colon which is decompressed and not well evaluated. Clinical correlation recommended to rule out early/subtle colitis. 3. 10 mm fat containing periumbilical hernia.
--- NOTE | 2022-01-09 21:10 | HMH.EDCP ---
ED Disposition Clinical Impression: Atypical chest pain Disposition: Home, Self-Care Condition on Discharge: Good Instructions: DI for Atypical Chest Pain Additional Instructions: see pcp this week for follow up Referrals: John Hall MD [Primary Care Provider] - - Critical Care Critical Care Time: No Attestation: On 01/09/22, the high probability of a clinically significant, sudden or life threatening deterioration of the following system(s) required my full and direct attention, intervention and personal management. The time I documented below is in addition to time spent performing reported procedures but includes the following listed in this critical care notation. Medical Decision Making - Medical Records Medical records reviewed: Yes: I reviewed the patient's medical records. - Salbador Inquiry Pt receiving controlled substance: No Vital Signs: 01/09/22 19:15 01/09/22 19:49 Temperature 98.6 F 98 F Temperature Source Oral Oral Pulse Rate [Right Brachial] 89 65 Respiratory Rate 21 18 Blood Pressure [Right Arm] 147/90 H 136/93 H Blood Pressure Mean [Right Arm] 109 107 Blood Pressure Source [Right Arm] Automatic Cuff Automatic Cuff Blood Pressure Position [Right Arm] Sitting Supine 02 Sat by Pulse Oximetry 98 97 Oxygen Delivery Method Room Air Room Air - Lab Data Lab results reviewed: Yes: I reviewed the patient's lab results. Lab Results 01/09/22 19:26: Urine Color Matilda, Urine Appearance Clear, Urine pH 6.0, Ur Specific Adams >= 1.030, Urine Protein Trace, Urine Glucose (UA) Negative, Urine Ketones Trace, Urine Blood 2+, Urine Nitrate Negative, Urine Bilirubin Negative, Urine Urobilinogen 1.0, Ur Leukocyte Esterase Negative, Urine RBC 5-10, Urine WBC Occasional, Amorphous Sediment 1+, Urine Mucus 4+ 01/09/22 19:35: Sodium 139, Potassium 4.5, Chloride 107, Carbon Dioxide 27, Anion Gap 9.5, BUN 6 L, Creatinine 0.70, Estimated Creat Clear 145, Estimated GFR 93, Est GFR ( Amer) 112, Glucose 95, Calcium 9.1, Total Bilirubin 0.8, AST 40 H, ALT 31, Alkaline Phosphatase 81, Troponin I < 0.01, C-Reactive Protein 8.2 H, Total Protein 7.8, Albumin 4.1, Globulin 3.7 H, Albumin/Globulin Ratio 1.1, Amylase 57 01/09/22 19:35: ESR 17 01/09/22 19:35: Magnesium 2.0, Lipase 35, Procalcitonin 0.105 01/09/22 19:35: WBC 5.8, RBC 3.51 L, Hgb 10.9 L, Hct 35.6 L, MCV 101.3 H, MCH 31.0, MCHC 30.6 L, RDW 13.4, Plt Count 101 L, MPV 11.4 H, Neut % (Auto) 65.5, Lymph % (Auto) 25.1, Glasscock % (Auto) 6.4, Eos % (Auto) 2.3, Baso % (Auto) 0.6, Neut # (Auto) 3.8, Lymph # (Auto) 1.5, Glasscock # (Auto) 0.4, Eos # (Auto) 0.1, Baso # (Auto) 0.0 Result diagrams: 01/09/22 19:35 01/09/22 19:35 Orders (Tests/Meds): ED MEDICATIONS Generic Name Dose Route Start Last Admin Trade Name Freq PRN Reason Stop Dose Admin Sodium Chloride 1,000 mls @ 999 mls/hr 01/09/22 20:00 01/09/22 20:02 Sod Chlor 0.9% 1000ml Bag IV 01/09/22 21:00 999 mls/hr .Q1H1M LARA Administration Sodium Chloride 8 ml 01/09/22 19:57 Sodium Chloride 0.9% 10ml Vial IV 02/08/22 19:56 NEEDED PRN dilute pepcid Discontinued Medications Generic Name Dose Route Start Last Admin Trade Name Freq PRN Reason Stop Dose Admin Aspirin 324 mg 01/09/22 19:57 01/09/22 20:04 Aspirin 81mg Chewable Tablet PO 01/09/22 19:58 324 mg ONCE ONE Administration Famotidine 20 mg 01/09/22 19:57 01/09/22 20:01 Famotidine 20mg/2ml Vial IV 01/09/22 19:58 20 mg ONCE ONE Administration Iopamidol 75 ml 01/09/22 21:31 01/09/22 21:32 Iopamidol-370 (76%);100ml Bottle IV 01/09/22 21:32 75 ml ONCE ONE Administration Metoclopramide HCl 10 mg 01/09/22 19:57 01/09/22 20:01 Metoclopramide Hcl 10mg/2ml Vial IVP 01/09/22 19:58 10 mg ONCE ONE Administration Ondansetron HCl 4 mg 01/09/22 19:57 01/09/22 20:01 Ondansetron 4mg/2ml Vial IV 01/09/22 19:58 4 mg ONCE ONE Administration Sodium Chloride 10 ml 01/09/22 21:3
--- NOTE | 2022-01-09 21:10 | PC.NURSE ---
Rounded on patient. PT is resting in bed. States that her chest is no longer hurting and her indigestion and the burning she felt has resolved.
[2022-01-09 21:19] LABS: Procalcitonin 0.105 ng/mL (0.0-2.0)
[2022-01-09 21:30] VITALS: BP 124/92; PULSE 55; RESP 21; O2SAT 100
[2022-01-09 21:45] LABS: Basophils % 0.6 % (0.1-2.0); Eosinophils # 0.1 K/mm3 (0.0-0.4); Eosinophils % 2.3 % (0.1-12.0); Hematocrit 35.6 % (37.0-47.0); Hemoglobin 10.9 g/dL (12.2-16.2); Lymphocytes # 1.5 K/mm3 (0.7-4.5); Lymphocytes % 25.1 % (10-50); Mean Corpuscular HGB Conc 30.6 g/dL (31.8-35.4); Mean Corpuscular Volume 101.3 fl (81-99); Mean Platelet Volume 11.4 fl (7.4-10.4); Monocytes # 0.4 K/mm3 (0.1-1.0); Monocytes % 6.4 % (1.7-9.3); Neutrophils # 3.8 K/mm3 (1.8-7.8); Neutrophils % 65.5 % (37.0-80.0); Platelet Count 101 K/mm3 (142-424); Red Blood Count 3.51 M/mm3 (4.20-5.40); Red Cell Distribution Width 13.4 % (11.5-17.5); White Blood Count 5.8 K/mm3 (4.8-10.8)
[2022-01-09 21:54] VITALS: BP 125/95; PULSE 56; RESP 18; TEMP 36.6; O2SAT 99
== END 2022-01-09 21:59 | disposition home or self-care (01) ==
LOC: UTC 19:00 → ER 19:31
PROVIDERS: Nurse Practitioner; Emergency Provider Emergency Medicine; PCP Emergency Medicine
DX: R07.89 Other chest pain (principal); R10.9 Unspecified abdominal pain; R05.9 Cough, unspecified; R09.81 Nasal congestion
CPT/HCPCS: 71046; 74177; 80053; 81001; 82150; 83690; 83735; 84145; 84484; 85025; 85651; 86140; 93005; 96361; 96374; 96375; 99285; J2405; Q9967

== ENCOUNTER → 2022-01-20 10:31 | Outpatient (CLI) | payer BC, SELFPAY ==
--- NOTE | 2022-01-20 10:39 | ECG_ITS ---
APPROVED REPORT Exam: Resting ECG HR:48 bpm ECG Measurements Heart Rate 48 AXES DE 156 P 57 QRSd 92 QRS 53 QT 428 T 47 QTc 394 Conclusion SINUS BRADYCARDIA WITH SINUS ARRHYTHMIA LOW QRS VOLTAGE IN PRECORDIAL LEADS [QRS DEFLECTION < 1.0 mV IN CHEST LEADS] BORDERLINE ECG UNCONFIRMED REPORT Electronically signed by : Tru Harper MD 01/20/2022 11:21:48
[2022-01-20 10:43] LABS: MANUAL DIFFERENTIAL MANUAL DIFFERENTIAL (MANUAL DIFF)
[2022-01-20 11:05] LABS: Basophils # 0.1 K/mm3 (0-0.2); Eosinophils # 0.2 K/mm3 (0.0-0.4); Hemoglobin 13.4 g/dL (12.2-16.2); Lymphocytes # 2.5 K/mm3 (0.7-4.5); Lymphocytes % 33.8 % (10-50); Mean Corpuscular HGB Conc 30.4 g/dL (31.8-35.4); Mean Corpuscular Hemoglobin 30.3 pg (27.0-31.2); Mean Corpuscular Volume 99.7 fl (81-99); Mean Platelet Volume 8.7 fl (7.4-10.4); Monocytes # 0.5 K/mm3 (0.1-1.0); Monocytes % 6.2 % (1.7-9.3); Neutrophils # 4.2 K/mm3 (1.8-7.8); Platelet Count 326 K/mm3 (142-424); Red Blood Count 4.41 M/mm3 (4.20-5.40); Red Cell Distribution Width 13.5 % (11.5-17.5); White Blood Count 7.4 K/mm3 (4.8-10.8)
[2022-01-20 12:08] LABS: Alanine Aminotransferase 21 U/L (12-78); Albumin Level 3.6 g/dl (3.5-5.0); Albumin/Globulin Ratio 1.2 (1.1-1.8); Alkaline Phosphatase 84 U/L (38-126); Anion Gap 7.3 mEq/L (5-15); Aspartate Amino Transferase 22 U/L (14-36); Bilirubin,Total 0.2 mg/dl (0.2-1.3); Blood Urea Nitrogen 9 mg/dl (7-17); Calcium 8.7 mg/dl (8.4-10.2); Carbon Dioxide 25 mmol/L (22.0-30.0); Chloride 109 mmol/L (98-107); Estimated Glomerular Filt Rate 93 ml/min (>60); GFR (African American) 112 ML/MIN (>60); Gamma Glutamyl Transpeptidase 17 U/L (12-43); Globulin 2.9 g/dL (1.3-3.2); Glucose 93 mg/dl (74-100); Potassium 4.3 mmoL/L (3.5-5.1); Sodium 137 mmol/L (136-145); Total Protein,Serum 6.5 g/dl (6.3-8.2)
[2022-01-20 12:56] LABS: Vitamin B12 390 pg/mL (239-931)
[2022-01-20 13:16] LABS: Eosinophils % 3 % (0-3); Hypochromasia 2+; Lymphocytes % 32 % (10-50); Macrocytosis 1+; Monocytes % 4 % (2-9); Neutrophils % 60 % (42-76); Platelet Estimate Normal; Total Cells Counted 100
[2022-01-20 13:29] LABS: Folate 5.19 ng/mL
[2022-01-25 16:10] LABS: Vitamin B1 137.6 nmol/L (66.5-200.0)
== END ==
PROVIDERS: PCP Nurse Practitioner Family; Visit Provider Specialist
DX: R07.9 Chest pain, unspecified (principal); R94.5 Abnormal results of liver function studies; D64.9 Anemia, unspecified; R00.1 Bradycardia, unspecified; F10.11 Alcohol abuse, in remission
CPT/HCPCS: 36415; 80053; 82607; 82746; 82977; 84425; 85007; 85014; 85018; 85048; 85049; 93005

== ENCOUNTER → 2022-02-01 10:42 | Outpatient (CLI) | payer BC, SELFPAY ==
--- NOTE | 2022-02-01 10:43 | CA_ITS ---
APPROVED REPORT EXAM: Comprehensive 2D, Doppler, and color-flow Echocardiogram Metal Neutralizer: Mamta Barajas CRT Ht: 5 ft 3 in Wt: 192lbs BSA: 1.90 BP: 132/80 mmHg Indications: Chest Pain, alcohol use 2D Dimensions LVOT 1.84 cm (M/F) 1.5-2.5 LA Volume 31.60 mL LA Volume Index 16.60 mL/m2 (M/F) 16-34 M-Mode Dimensions RVDd 2.29 cm (0.9-2.6) LA Diam 3.09 cm (1.9-4.0) LVDd 3.74 cm (3.5-5.7) Ao Diam 3.09 cm (2.0-3.7) LVDs 2.41 cm (3.5-5.7) IVSd 1.80 cm (0.6-1.1) PWd 0.41 cm (0.6-1.1) EF (Teich) 65.80% FS 35.60% EDV (Teich) 59.60 mL TAPSE 2.10 (<1.7) ESV (Teich) 20.40 mL LV Diastology E Decel Time 247.00 (160-240 msec) E/A Ratio 1.10 MED E' 8.80 (< 7 cm/sec) MED A' 9.10 cm/s E'/MED E' Ratio 7.26 (>14) LAT E' 12.40 (<10 cm/sec) LAT A' 7.80 cm/s E/LAT E' Ratio 5.15 (>14) Aortic Valve AO Peak GR. 5.90 mmHg Mitral Valve MV A Velocity 58.00 (40-130 cm/s) E/A Ratio 1.10 MV Decel. Time 247.00 (160-240 ms) Pulmonary Valve PV Peak Velocity 199.00 (50-150 cm/s) Tricuspid Valve TR P. Velocity 181.00 cm/s RAP Estimate 10.00 mmHg RVSP 23.10 mmHg Left Ventricle Left atrium normal size left ventricle is normal size, there is no concentric left ventricular hypertrophy, estimated ejection fraction 55% with no regional wall motion abnormality, diastolic parameters are within normal range. Right Ventricle Right atrium and right ventricle are normal size and contractility. Aortic Valve Aortic valve is grossly normal there is no aortic stenosis or aortic insufficiency. Mitral Valve Mitral valve grossly normal, there is trace mitral regurgitation. Tricuspid Valve Tricuspid grossly normal, there is trace tricuspid regurgitation, tricuspid regurgitation jet velocity is inadequate for calculation of the right ventricular systolic pressure. Pulmonic Valve Pulmonic valve is poorly visualized. Great Vessels Aortic root is normal size. Inferior vena cava is normal size with normal inspiratory collapse. Pericardium No significant pericardial effusion. Conclusion 1. Normal left ventricular size preserved left ventricular systolic function, estimated ejection fraction of 55% with no regional wall motion abnormality, diastolic parameters are within normal range. 2. Trace mitral and tricuspid regurgitation. 3. No significant pericardial effusion noted. 4. Inferior vena cava normal size with normal spectral collapse. Electronically signed by : Humble Solitario MD 02/02/2022 05:31:14
== END ==
PROVIDERS: PCP Nurse Practitioner Family; Visit Provider Nurse Practitioner Family
DX: R06.09 Other forms of dyspnea (principal); R42 Dizziness and giddiness; R07.9 Chest pain, unspecified; R20.0 Anesthesia of skin; R20.2 Paresthesia of skin
CPT/HCPCS: 93306

== ENCOUNTER → 2022-02-01 12:28 | Outpatient (CLI) | payer BC, SELFPAY ==
[2022-02-01 13:32] LABS: Basophils # 0.1 K/mm3 (0-0.2); Basophils % 0.9 % (0.1-2.0); Eosinophils # 0.1 K/mm3 (0.0-0.4); Eosinophils % 1.3 % (0.1-12.0); Hematocrit 47.4 % (37.0-47.0); Hemoglobin 15.1 g/dL (12.2-16.2); Lymphocytes # 2.2 K/mm3 (0.7-4.5); Lymphocytes % 19.5 % (10-50); Mean Corpuscular HGB Conc 31.9 g/dL (31.8-35.4); Mean Corpuscular Hemoglobin 31.1 pg (27.0-31.2); Mean Corpuscular Volume 97.4 fl (81-99); Mean Platelet Volume 8.5 fl (7.4-10.4); Monocytes # 0.5 K/mm3 (0.1-1.0); Monocytes % 4.1 % (1.7-9.3); Neutrophils # 8.3 K/mm3 (1.8-7.8); Neutrophils % 74.2 % (37.0-80.0); Platelet Count 313 K/mm3 (142-424); Red Blood Count 4.87 M/mm3 (4.20-5.40); Red Cell Distribution Width 13.5 % (11.5-17.5); White Blood Count 11.1 K/mm3 (4.8-10.8)
[2022-02-01 14:11] LABS: Alanine Aminotransferase 18 U/L (12-78); Albumin/Globulin Ratio 1.3 (1.1-1.8); Alkaline Phosphatase 101 U/L (38-126); Anion Gap 13.3 mEq/L (5-15); Aspartate Amino Transferase 21 U/L (14-36); Bilirubin,Total 0.3 mg/dl (0.2-1.3); Blood Urea Nitrogen 10 mg/dl (7-17); Calcium 8.9 mg/dl (8.4-10.2); Carbon Dioxide 25 mmol/L (22.0-30.0); Chloride 103 mmol/L (98-107); Estimated Glomerular Filt Rate 93 ml/min (>60); GFR (African American) 112 ML/MIN (>60); Globulin 3.1 g/dL (1.3-3.2); Glucose 87 mg/dl (74-100); Potassium 4.3 mmoL/L (3.5-5.1); Sodium 137 mmol/L (136-145); Total Protein,Serum 7.1 g/dl (6.3-8.2)
[2022-02-01 14:12] LABS: Magnesium 1.8 mg/dl (1.6-2.3)
[2022-02-04 02:10] LABS: HIV 1 RNA, Real time PCR <20 copies/mL (.)
[2022-02-04 15:10] LABS: QuantiFERON-TB Gold Plus Negative (Negative)
[2022-02-06 21:59] LABS: Hep A Ab, IgM Negative; Hepatitis B Core Antibody IgM Negative; Hepatitis B Surface Antigen Negative
[2022-02-06 22:00] LABS: Hepatitis C Antibody <0.1
== END ==
PROVIDERS: Nurse Practitioner Family; PCP Nurse Practitioner Family; Visit Provider Dermatology
DX: L40.0 Psoriasis vulgaris (principal); L40.59 Other psoriatic arthropathy; F17.200 Nicotine dependence, unspecified, uncomplicated; Z79.899 Other long term (current) drug therapy
CPT/HCPCS: 36415; 80053; 80074; 83735; 85025; 86480; 87536

== ENCOUNTER 2022-02-04 09:01 | Outpatient (RCR) | payer BC, SELFPAY ==
--- NOTE | 2022-02-04 10:37 | HMH.PTOPEV ---
PT Outpatient Evaluation Rehab PT Outpatient Evaluation Start: 02/04/22 09:21 Freq: Status: Active Protocol: Document 02/04/22 09:21 RICHARD (Rec: 02/04/22 10:31 RICHARD [id number]) E-signed By Gabo Gardner, PT Outpatient Therapy Subjective History Subjective History Pt reports insidious onset neck pain beginning ~ 3months ago. Pt reports neck pain progressed w/HAAS's from neck up and over head into eye area, and reports at its worst will refer pain into arms and chest . Pt reports h/o migraine HAAS's , and recent diagnosis of fibromyalgia, 'which they say is causing my neck issues'. Chief Complaint Pain,Spasms,Stiff,Paresthesia Symptom Type Ache,Throb,Sharp,Dull Symptoms Relieved By Rest/Positioning,Heat, Prescription Meds Symptoms Aggravated By Physical Activity,Twisting, Lifting Prior Functional Limitations Reaching,Lifting,Housework, Driving Current Functional Limitations Reaching,Lifting,Housework, Driving Symptom Description Constant but Variable Level of pain today (0-10) 2 Pain scale - at its best (0-10) 2 Pain scale - at its worst (0-10) 6 Cervical Eval Palpation Cervical Muscles R Cervical Paraspinal,L Cervical Paraspinal,R Suboccipital,L Suboccipital,R CT Junction,L CT Junction,R Upper Trapezius,L Upper Trapezius Cervical/Thoracic Palpation Findings Tenderness,Trigger Point, Muscle Guarding Posture Head/C-Spine Posture Sitting Position Flexed Head/C-Spine Posture Standing Position Flexed Flexibility Deficits Upper Trapezius Muscle Length (R) Moderate Tightness,(L) Moderate Tightness Levaetor Scapulae Muscle Length (R) Moderate Tightness,(L) Moderate Tightness Scalene Group Muscle Length (R) Moderate Tightness,(L) Moderate Tightness Passive Joint Mobility Cervical PIVM Dec: R OA L OA R AA L AA R C2/3 L C2/3 R C3/4 L C3/4
== END 2022-02-04 09:05 | disposition home or self-care (01) ==
LOC: PT 09:01
PROVIDERS: PCP Nurse Practitioner Family; Visit Provider Specialist
DX: G44.86 Cervicogenic headache (principal); G43.709 Chronic migraine without aura, not intractable, without status migrainosus
CPT/HCPCS: 97010; 97014; 97035; 97110; 97163; G0283

== ENCOUNTER → 2022-04-19 08:21 | Outpatient (CLI) | payer BC, SELFPAY ==
--- NOTE | 2022-04-19 08:22 | MR_ITS ---
FINAL REPORT TECHNIQUE: Multiplanar MR without contrast CLINICAL HISTORY: eval for mass, tumor, lesion, heel compressor abnormality. Double vision and migraine headache. symptoms xyears. blurred vision and dizziness. FINDINGS: Diffusion sequences show no signal abnormality to indicate acute infarct. No mass, hemorrhage or edema is seen. Ventricles are normal. Major vascular flow voids are intact. IMPRESSION: Unremarkable MR of the brain without contrast Reviewed, Interpreted and Dictated by Mel Escamilla MD Transcribed by Naun Oro Authenticated and [facility]
--- NOTE | 2022-04-19 08:22 | MR_ITS ---
FINAL REPORT TECHNIQUE: 3-D [id number] sequences without contrast CLINICAL HISTORY: eval posterior circ for stenosis, aneurysm. Double vision and migraine headache. symptoms xyears. blurred vision and dizziness. FINDINGS: The distal internal carotid arteries are unremarkable. MCAs and ACAs are unremarkable. Basilar artery is widely patent. bingo caller are intact. No aneurysm is seen. Superior sagittal sinus is patent. IMPRESSION: Unremarkable MRA head Reviewed, Interpreted and Dictated by Mel Escamilla MD Transcribed by Naun Oro Authenticated and [facility]
--- NOTE | 2022-04-19 09:20 | XR_ITS ---
FINAL REPORT CLINICAL HISTORY: neck pain FINDINGS: CERVICAL SPINE 6 views including flexion and extension views were obtained. There is no acute fracture. There is no malalignment. There is no instability with flexion or extension. There is mild anterior osteophyte formation at C4-5 and C5-6. There is no soft tissue abnormality. The neuro foramina are adequately patent. The patient is edentulous. IMPRESSION: Mild anterior osteophyte formation at C4-5 and C5-6. No instability on flexion or extension. Reviewed, Interpreted and Dictated by Sarmad Shah MD Transcribed by Alisia Rossi Authenticated and [facility]
== END ==
PROVIDERS: PCP Nurse Practitioner Family; Visit Provider Nurse Practitioner Family
DX: G43.709 Chronic migraine without aura, not intractable, without status migrainosus (principal); G44.86 Cervicogenic headache; H50.51 Esophoria; H91.93 Unspecified hearing loss, bilateral; H93.13 Tinnitus, bilateral; R41.9 Unspecified symptoms and signs involving cognitive functions and awareness; R42 Dizziness and giddiness; M54.2 Cervicalgia; Z72.0 Tobacco use; G89.29 Other chronic pain
CPT/HCPCS: 70544; 70551; 72052

== ENCOUNTER → 2022-06-15 14:31 | Outpatient (CLI) | payer BC, SELFPAY ==
--- NOTE | 2022-06-15 14:37 | US_ITS ---
FINAL REPORT CLINICAL HISTORY: abnormal uterine bleeding FINDINGS: Transvaginal sonographic images of the pelvis were obtained. The uterus is homogeneous. The endometrial stripe measures 6 mm. The uterus is normal in size. Nabothian cysts are identified. The ovaries are within normal limits. No free fluid is identified. IMPRESSION: No acute process. Reviewed, Interpreted and Dictated by Mel Escamilla MD Transcribed by Elle Herron Authenticated and [facility]
--- NOTE | 2022-06-15 14:37 | MM_ITS ---
PROCEDURE INFORMATION: Exam: MG Bilateral Screening 3D Mammography Exam date and time: 06/15/2022 2:33 PM Age: 42 years old Clinical indication: Screening examination TECHNIQUE: Imaging protocol: Bilateral Screening tomosynthesis and 2D mammography including computer-aided detection (CAD) when performed. COMPARISON: No relevant prior studies available. Baseline FINDINGS: MAMMOGRAPHY: Breast composition: There are scattered areas of fibroglandular density. Mass: None. Architectural distortion: None. Calcifications: No suspicious calcifications. Asymmetric density: None. Skin thickening: None. Axillary adenopathy: None. IMPRESSION: No mammographic evidence of malignancy. Annual screening is recommended unless otherwise clinically indicated. ASSESSMENT: BI-RADS Category 1: Negative
== END ==
PROVIDERS: PCP Nurse Practitioner Family; Visit Provider Obstetrics & Gynecology
DX: N93.9 Abnormal uterine and vaginal bleeding, unspecified (principal); Z12.31 Encounter for screening mammogram for malignant neoplasm of breast
CPT/HCPCS: 76830; 77063; 77067

== ENCOUNTER → 2022-06-30 14:48 | Outpatient (CLI) | payer BC, SELFPAY ==
--- NOTE | 2022-06-30 14:59 | XR_ITS ---
FINAL REPORT CLINICAL HISTORY: LOW BACK PAIN FINDINGS: LUMBAR SPINE AP and lateral views were obtained. There is no acute fracture or malalignment. There is lumbar scoliosis convex to the left of approximately 8 degrees. Vertebrae are normal height. Prevertebral soft tissues are unremarkable. IMPRESSION: No acute bony abnormality. Reviewed, Interpreted and Dictated by Sarmad Shah MD Transcribed by Kim Pagan Authenticated and [facility]
== END ==
PROVIDERS: PCP Nurse Practitioner Family; Visit Provider Nurse Practitioner Family
DX: M54.50 Low back pain, unspecified (principal)
CPT/HCPCS: 72100

== ENCOUNTER → 2022-07-18 14:20 | Outpatient (CLI) | payer BC, SELFPAY ==
[2022-07-18 15:30] LABS: Basophils # 0.1 K/mm3 (0-0.2); Basophils % 1.3 % (0.1-2.0); Eosinophils # 0.3 K/mm3 (0.0-0.4); Eosinophils % 2.8 % (0.1-12.0); Hematocrit 44.5 % (37.0-47.0); Hemoglobin 14.5 g/dL (12.2-16.2); Lymphocytes # 2.5 K/mm3 (0.7-4.5); Lymphocytes % 27.2 % (10-50); Mean Corpuscular HGB Conc 32.7 g/dL (31.8-35.4); Mean Corpuscular Hemoglobin 30.8 pg (27.0-31.2); Mean Corpuscular Volume 94.4 fl (81-99); Mean Platelet Volume 8.5 fl (7.4-10.4); Monocytes # 0.5 K/mm3 (0.1-1.0); Monocytes % 5.5 % (1.7-9.3); Neutrophils # 5.9 K/mm3 (1.8-7.8); Neutrophils % 63.3 % (37.0-80.0); Platelet Count 383 K/mm3 (142-424); Red Blood Count 4.71 M/mm3 (4.20-5.40); Red Cell Distribution Width 13.6 % (11.5-17.5); White Blood Count 9.3 K/mm3 (4.8-10.8)
[2022-07-18 15:34] LABS: Chloride 109 mmol/L (98-107); Potassium 4.2 mmoL/L (3.5-5.1); Sodium 138 mmol/L (136-145)
[2022-07-18 15:37] LABS: Alanine Aminotransferase 20 U/L (12-78); Albumin Level 3.9 g/dl (3.5-5.0); Albumin/Globulin Ratio 1.3 (1.1-1.8); Alkaline Phosphatase 87 U/L (38-126); Anion Gap 9.2 mEq/L (5-15); Aspartate Amino Transferase 23 U/L (14-36); Bilirubin,Total 0.3 mg/dl (0.2-1.3); Blood Urea Nitrogen 12 mg/dl (7-17); Carbon Dioxide 24 mmol/L (22.0-30.0); Estimated Glomerular Filt Rate 110 ml/min (>60); GFR (African American) 133 ML/MIN (>60); Globulin 3.1 g/dL (1.3-3.2)
[2022-07-18 15:38] LABS: Calcium 8.9 mg/dl (8.4-10.2); Glucose 94 mg/dl (74-100)
[2022-07-18 15:57] LABS: HCG,Quantitative < 2 mIU/ml (0-5.42)
== END ==
PROVIDERS: PCP Nurse Practitioner Family; Visit Provider Obstetrics & Gynecology
DX: N94.6 Dysmenorrhea, unspecified (principal)
CPT/HCPCS: 36415; 80053; 84702; 85025

== ENCOUNTER 2022-07-21 06:04 | Day surgery (SDC) | payer BC, SELFPAY ==
[2022-07-21] VITALS (10 sets, daily range): BP systolic 112–147; BP diastolic 67–94; PULSE 51–96; RESP 16–18; TEMP 36.2–43; O2SAT 92–98; BMI 34.3
--- NOTE | 2022-07-21 08:04 | P.PN_ITS ---
[facility] Disclaimer: The information contained in this section may have been updated after the patient was seen, as this information can be updated by other users. Medical History (Updated 07/21/22 @ 06:38 by Rossana Atkins RN) Allergies Anxiety and depression Chronic migraine without aura Consultation for sterilization Dysmenorrhea Fibromyalgia History of alcohol abuse History of anemia History of back pain History of gastroesophageal reflux (GERD) Hypertension Impacted cerumen of left ear Irritable bowel syndrome (IBS) Kidney stone Migraine Miscarriage Psoriasis Sinus headache Tonsillar enlargement Urinary tract infection Surgical History H/O: Hx of cholecystectomy Family History (Updated 07/21/22 @ 06:38 by Rossana Atkins RN) Mother Heart attack, Onset Age: 63 Cancer, Onset Age: 30 Father Heart attack, Onset Age: 70 Other Alcoholism Coronary artery disease Degenerative disc disease Diabetes FHx: mental illness Hypertension Stroke Substance abuse Social History (Updated 07/21/22 @ 06:40 by Rossana Atkins RN) Smoking Status: Current every day smoker tobacco type: cigarettes packs per day: 1 years smoked: 20 alcohol intake: former substance use type: former substance user and marijuana current occupational status: unemployed Travel in the last 8 weeks: None household members: family housing: house marital status: single [facility] Anesthesia Checklist Patient Identification Patient Identification: Arm Band Structural Data Admitted From: Home Planned Operative Procedure/s: Laparoscopic Salpingectomy, Hysteroscopy, D&C, Novasure Ablation Consent for Planned Operative Procedure(s) Verified: Yes Verified Documents: Surgical Consent and History and Physical NPO Status Verified Time NPO: 00:00 Additional verifications Anesthesia Reactions: Yes (hard to wake up.) Hx Blood Transfusions: No Blood Transfusion Reaction: No Airway Assessment C-Spine Mobility Assessed: Yes TMJ Mobility Assessed: Yes Dentition: Edentulous Neurological Assessment Level of Consciousness: Awake and Alert Anesthesia Plan Anesthesia Risk discussed: Yes Anesthesia Plan: Verified ASA Class: II Anesthesia Type: General
--- NOTE | 2022-07-21 09:48 | EXP.ANES.I ---
[facility] Anesthesia Record Part I Anesthesia Record I Intake, IV Amount: 1,200 Estimated blood loss (mL): 5 Urine output (mL): 0 Blood Products used (#): none Blood Pressure: 121/77 SaO2: 92 Pulse Rate: 89 Respiratory Rate: 16 Temperature: 97.5 F Patient is:: Drowsy and Stable Stable to PACU at:: 09:45
--- NOTE | 2022-07-21 10:53 | EXP.OP.NOTE ---
Date of procedure: 07/21/22 Pre-op Diagnosis:: 1. Abnormal uterine bleeding 2. Dysmenorrhea 3. Complete family status, desires permanent sterilization 4. Tobacco use Post-op Diagnosis:: 1. Abnormal uterine bleeding 2. Dysmenorrhea 3. Complete family status, desires permanent sterilization 4. Tobacco use 5. Endometriosis of pelvic peritoneum, stage 1 Procedure performed:: 1. Laparoscopy, bilateral salpingectomy 2. Hysteroscopy, D&C Surgeon:: Karlie Almaguer DO Electroencephalograph Technologist(s):: n/a SPORTS UMPIRE:: Fortunato Del Rosario Anesthesia: GETDoe Estimated blood loss (mL): 5 Clinical Note:: Ms Ronald Swain is a 42 yo P1011 who presents to [facility] for scheduled procedure. She states periods have been irregular for a while. However, since the summer of 2021 she has experienced a period every two weeks. Flow lasts 3-4 days and is extremely heavy and painful. She admits the bleeding and pain has gotten worse. She has history of fibromyalgia. History of x 1. She admits she had Nexplanon placed in her arm > 10 years ago. She admits it was supposed to come out 10 years ago. She cannot feel it anymore and cannot find it. She does not want to get . She has a new boyfriend and plans on becoming sexually active. She is complete with childbearing. She states she is not good at remembering to take medication and does not want to be on control pills or any hormones. Operative findings:: 1. On bimanual exam, uterus midposition and of normal size and shape, no adenxal masses palpated 2. On laparoscopic exam, grossly normal appearing liver, stomach, bowel and omentum. Gallbladder surgically absent. Grossly normal appearing bilateral ovaries. Right fallopian tube with small clear blebs along the tube consistent with endometriosis. No evidence of adhesions. Uterus with small pedunculated fibroid on fundus. 3. On hysteroscopic exam, grossly normal appearing fluffy endometrial tissue. Bilateral tubal ostia not easily visualized secondary to tissue. Cavity size was 4 c m in length and <2.5 cm in width with Novasure sound. Unable to perform endometrial ablation secondary to small cavity size Operative note:: Risks, benefits and alternatives were discussed with the patient. Risks include but are not limited to bleeding, infection, damage to adjacent structures and VTE. Patient voiced understanding and agreed to proceed with surgery. She was wheeled back to the operating room and placed under general anesthesia without difficulty. She was placed in the dorsal lithotomy position and prepped and draped in normal sterile fashion. A alanis catheter was inserted into the bladder and draining clear urine prior to the start of the procedure. A bimanual exam was performed. A weighted Auvard was placed in the vaginal vault. A single tooth tenaculum was placed on the anterior lip of the cervix. [place] manipulator was inserted into the cervical canal and attached to the tenaculum. Weighted Auvard was removed from the vagina. Attention was then drawn to the abdomen. A 2cm infraumbilical incision was made. Veress needle was tested and inserted intraabdominally without difficulty. Opening pressure of 7 mm Hg. Abdomen was then insulflated to 15 mm Hg. 11 mm Trocar was inserted through infraumbilical incision and laparoscope was inserted. Abdomen was viewed in its entirety. See findings above. Pictures were taken. Left lower quadrant was transilluminated. 5 mm incision was made and 5 mm disposable blunt trocar was inserted into the abdomen under direct laparoscopic visualization. Trocar was removed and sleeve was left in place. Right lower quadrant was transilluminated. A 5 mm incision was made and a 5 mm disposable trocar was inserted into the abdomen under direct laparoscopic visualization. Obturator was removed and sleeve was left in place. Fimbriated end of right fallopian tube was grasped. Harmonic was used to transect the right mesosalpinx and fallopian tube at uterine cornua, leaving right ovary in situ.
--- NOTE | 2022-07-21 14:40 | EXP.ANES.II ---
[facility] Anesthesia Record Part II Anesthesia Record Part II Discharge Time: 10:15 Destination: Surgical Day Care (OP Surgery) PACU nurse assessment reviewed?: Yes Patient Condition:: Good Anesthesia Complications:: None Swallowing reflex intact?: Yes Cyanosis?: No Blood Pressure: 112/72 Pulse Rate: 64 Temperature: 97.3 F Mental Status: Alert & Oriented Pain level:: 3 Nausea and/or vomitting:: None Intake, IV Amount: 0
== END 2022-07-21 10:50 | disposition home or self-care (01) ==
PROVIDERS: PCP Nurse Practitioner Family; Visit Provider Obstetrics & Gynecology
PROC: (CPT 58661; principal; 2022-07-21 07:30)
DX: N93.9 Abnormal uterine and vaginal bleeding, unspecified (principal); N94.6 Dysmenorrhea, unspecified; Z30.2 Encounter for sterilization; Z72.0 Tobacco use; N80.30 Endometriosis of pelvic peritoneum, unspecified
CPT/HCPCS: 58661; 58558; J2405; J2710

== ENCOUNTER 2024-05-11 16:17 | Emergency (ER) | payer BC, SELFPAY ==
--- NOTE | 2024-05-11 16:12 | ECG_ITS ---
APPROVED REPORT Exam: Resting ECG HR:67 bpm ECG Measurements Heart Rate 67 AXES CA 137 P 56 QRSd 86 QRS 28 QT 386 T 47 QTc 402 Conclusion SINUS RHYTHM WITH SINUS ARRHYTHMIA NORMAL ECG UNCONFIRMED REPORT Electronically signed by : Yaya Lawrence, 05/11/2024 23:28:32
[2024-05-11 16:18] VITALS: BP 145/91; PULSE 71; RESP 18; TEMP 36.7; O2SAT 100; BMI 28.3
--- NOTE | 2024-05-11 16:23 | CT_ITS ---
PROCEDURE INFORMATION: Exam: CT Abdomen And Pelvis With Contrast Exam date and time: 05/11/2024 5:49 PM Age: 44 years old Clinical indication: Abdominal pain TECHNIQUE: Imaging protocol: Computed tomography of the abdomen and pelvis with contrast. Radiation optimization: All CT scans at this facility use at least one of these dose optimization techniques: automated exposure control; mA and/or kV adjustment per patient size (includes targeted exams where dose is matched to clinical indication); or iterative reconstruction. Contrast material: ISOVUE; Contrast volume: 75 ml; Contrast route: IV; COMPARISON: CT ABDOMEN PELVIS W CON 01/09/2022 9:15 PM FINDINGS: Tubes, catheters and devices: None noted. Lungs: Lung bases appear clear. Heart: No significant coronary calcifications. No cardiomegaly. No significant pericardial effusion. Liver: Normal. No mass. Gallbladder and biliary ducts: Cholecystectomy. No ductal dilation. Pancreas: Normal. No ductal dilation. Spleen: Normal. No splenomegaly. Adrenal glands: Normal. No mass. Kidneys and ureters: Normal. No hydronephrosis. Stomach and bowel: Unremarkable. No obstruction. No mucosal thickening. Appendix: No evidence of appendicitis. Intraperitoneal space: Unremarkable. No free air. No significant fluid collection. Retroperitoneal space: No significant retroperitoneal inflammatory changes are noted. Vasculature: Unremarkable. No abdominal aortic aneurysm. Lymph nodes: Unremarkable. No enlarged lymph nodes. Urinary bladder: Unremarkable as visualized. Reproductive: Unremarkable as visualized. Bones/joints: Unremarkable. No acute fracture. Soft tissues: Unremarkable. IMPRESSION: No acute findings.
--- NOTE | 2024-05-11 16:24 | XR_ITS ---
PROCEDURE INFORMATION: Exam: XR Chest Exam date and time: 05/11/2024 5:50 PM Age: 44 years old Clinical indication: Shortness of breath; Additional info: Short of breath TECHNIQUE: Imaging protocol: Radiologic exam of the chest. Views: 1 view. COMPARISON: CR XR CHEST 2V 01/09/2022 8:02 PM FINDINGS: Lungs: Unremarkable. No consolidation. Pleural spaces: Unremarkable. No pleural effusion. No pneumothorax. Heart/Mediastinum: Unremarkable. No cardiomegaly. Bones/joints: Unremarkable. IMPRESSION: No acute findings.
--- NOTE | 2024-05-11 16:29 | ED_ITS ---
<Statement entered by Edilson Lawrence MD - 05/11/24 23:24> I was consulted by the EDGAR, and we discussed the complexity of the problems being addressed. I approved the treatment and management plan for this patient's care in the emergency department, thus performing a substantive portion of the medical decision making. Edilson Lawrence MD, DEONTE, FACEP Discharge Plan Disposition Patient Disposition: Home, Self-Care Condition: Good Prescriptions Prescriptions: New famotidine 40 mg tablet 40 mg PO BID 56 Days Qty: 112 0RF No Action pregabalin 75 mg capsule 75 mg PO BID fluoxetine 20 mg tablet 20 mg PO DAILY Emgality Pen 120 mg/mL pen injector 120 mg SQ QMONTH Qty: 1 5RF Ubrelvy 100 mg tablet 100 mg PO ONCE PRN (Reason: migraine ) Qty: 16 5RF Rx Instructions: Take 100 mg at onset of headache. May repeat 100 mg after 2 hours. Max dose 200 mg in 24 hours. famotidine 20 mg tablet 20 mg PO BID loratadine 10 mg tablet 10 mg PO DAILY Patient Comments: TAKE 1 TABLET BY MOUTH ONCE DAILY multivitamin Tablet 1 tab PO DAILY magnesium 200 mg tablet 200 mg PO .COMPLEX Rx Instructions: 200 mg orally 3 times a week; valsartan 40 mg tablet 40 mg PO BID Tremfya 100 mg/mL auto-injector 100 mg SQ MONTHLY cyclobenzaprine 10 mg tablet 10 mg PO DAILY Patient Comments: TAKE 1/2 (ONE-HALF) TABLET BY MOUTH THREE TIMES DAILY NEEDED FOR MUSCLE SPASM ibuprofen 800 mg tablet 800 mg PO Q8H PRN (Reason: pain) Qty: 20 0RF Referrals Follow up/Referrals: Ruthie Wright APRN [Referring] - See instructions Provider,MD Wayne [Primary Care Provider] - See instructions Activity Restrictions/Add. Instructions Additional Instructions/Restrictions: Please follow-up with your PCP for referral to be scoped if she believes necessary. Return to ER if anything worsens. Clinical Impressions Clinical Impression: Chest pain due to GERD, without esophagitis Instructions Patient Instructions: DI for Atypical Chest Pain Print Language Print Language: Faroese Discharge ED Provider: Edilson Lawrence General Adult HPI General Chief complaint: Chest Pain Stated complaint: pain Time Seen by Provider: 05/11/24 16:23 Mode of Arrival: Ambulatory Source of Information: Patient Limitations: No Limitations Description of Symptoms (Recalled from ER Triage Doc. by RN): pt c/o chest pain cough n/v hot and cold swts. History of Present Illness HPI narrative: This is a 44-year-old female who presents to the ED today for complaint of chest pressure, palpitations, heart racing, cold sweats at night, abdominal pain, nausea, vomiting daily and inability to keep food down as well as inability to keep fluids down all of this for the past year. 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 She tells me that she has psoriatic arthritis and psoriasis. She says that she also believes she has a hernia. She has had her gallbladder removed. She tells me that she has been vomiting bile almost daily for 2 weeks. She says that she first thought that she might be going through menopause but now she is not so sure. She takes medication for heartburn but says that it does not work. She also explains to me that her chest pain feels like pressure and burning all at the same time. She feels like it might be GERD but then tells me that she does not believe anything is wrong with her heart. Patient asks me to do a scan of her abdomen. Related Data Home Medications ?Medication ?Instructions ?Recorded ?Confirmed famotidine 20 mg tablet 20 mg PO BID . 01/20/22 04/17/23 loratadine 10 mg tablet 10 mg PO DAILY allergies 01/20/22 04/17/23 magnesium 200 mg tablet 200 mg PO .COMPLEX Supplement 03/31/22 04/17/23 multivitamin 1 tab PO DAILY Supplement 03/31/22 04/17/23 valsartan 40 mg tablet 40 mg PO BID bp 06/01/22 04/17/23 guselkumab 100 mg/mL subcutaneous 100 mg SQ MONTHLY . 07/18/22 04/17/23 auto-injector (Tremfya) cyclobenzaprine 10 mg tablet 10 mg PO DAILY 12/07/22 04/17/23 fluoxetine 20 mg tablet 20 mg PO DAILY 04/17/23 04/17/23 pregabalin 75 mg capsule 75 mg PO BID 04/17/23 04/17/23 Previous Rx's ?Medication ?Instructions ?Recorded ibuprofen 800 mg tablet 800 mg PO Q8H PRN pain #20 tabs 07/21/22 galcanezumab-gnlm 120 mg/mL 120 mg SQ QMONTH chronic migraine 04/21/23 subcutaneous pen injector #1 mL (Emgality Pen) ubrogepant 100 mg tablet (Ubrelvy) 100 mg PO ONCE PRN migraine 04/21/23 #16 tabs famotidine 40 mg tablet 40 mg PO BID 8 weeks #112 tabs 05/11/24 Allergies Allergy/AdvReac Type Severity Reaction Status Date / Time amoxicillin (AMOXICILLIN) Allergy Severe Swelling Verified 04/17/23 08:05 of Lip/Tongue/Throat morphine AdvReac Intermediate Vomiting Verified 04/17/23 08:05 PFSH PFS Disclaimer: The information contained in this section may have been updated after the patient was seen, as this information can be updated by other users. Medical History Abnormal uterine bleeding Anxiety and depression Bladder pain Chronic migraine without aura Migraine present since childhood with unchanged characteristic. Good response to propranolol, triptan in the past but noncompliant with follow-up. Propranolol discontinued due to bradycardia. Near daily headache with Nurtec every other day. Atypical chest pain syndrome therefore relative contraindication for triptans. Dysmenorrhea Dyspareunia Fibromyalgia History of alcohol abuse History of anemia History of back pain History of gastroesophageal reflux (GERD) Hypertension Irritable bowel syndrome (IBS) Kidney stone Migraine Psoriasis Surgical History H/O dilation and curettage H/O laparoscopy H/O: History of bilateral salpingectomy Hx of cholecystectomy Family History Mother Heart attack, Onset Age: 63 Cancer, Onset Age: 30 Cervical Father Heart attack, Onset Age: 70 Other Alcoholism Coronary artery disease Degenerative disc disease Diabetes FHx: mental illness Hypertension Stroke Substance abuse Social History Smoking Status: Former smoker tobacco type: cigarettes packs per day: 1 years smoked: 20 alcohol intake: former current occupational status: unemployed Travel in the last 8 weeks: None household members: family housing: house marital status: single Have you lived/traveled outside [place] in past 30 days?: No Contact w/someone who lives/traveled outside US past 30 days?: No Exposure to someone with infectious disease in past 14 days?: No Do you have a fever (greater than 100.4 F or 38 C)?: No Have you tested positive for COVID-19: No Exposed to someone with COVID-19 in past 14 days?: No Do you have a sore throat?: No Do you have a cough?: No Do you have any weakness?: No Do you have any diarrhea?: No Are you experiencing any unusual bleeding?: No Do you have any muscle aches/pain?: No Do you have any abdominal pain?: No Are you experiencing loss of taste or smell?: No Other Medical History Have you received the Flu Vaccine for this season: No Have you received the Pneumonia Vaccine: No ROS Obtained: Yes Systems reviewed as appropriate & no additional complaints except as documented Constitutional Constitutional: Reports as per HPI Physical Exam General General appearance: alert and in no apparent distress Head Head exam: atraumatic and normocephalic Eye Eye exam: Present normal appearance, PERRL and EOMI ENT ENT exam: Present normal exam, normal oropharynx and mucous membranes moist Neck Neck exam: Present normal inspection, full ROM and trachea midline Respiratory Respiratory exam: Present normal lung sounds bilaterally Cardiovascular Cardiovascular exam: Present regular rate, normal rhythm, normal heart sounds, +S1 and +S2 Abdominal Exam Abdominal exam: Present soft, tenderness (Upper abdomen is tender) and normal bowel sounds Abdominal tenderness: Present RUQ, LUQ and epigastrium Extremities Exam Extremities exam: Present normal inspection, full ROM and normal capillary refill Neurological Exam Neurological exam: Present alert and oriented X3 Skin Skin exam: Present warm, dry and intact Medical Decision Making Medical Records Screening: Per USPSTF and CDC recommendations, given the prevalence of disease in our region, it is our hospital?s policy to screen for HIV and viral Hepatitis for all patients aged 18 and over and those with ongoing risk factors. [place] Inquiry Pt receiving controlled substance: No Vital Signs: 05/11/24 16:18 05/11/24 16:49 05/11/24 17:00 Temperature 98.1 F Temperature Source Oral Pulse Rate 85 63 Pulse Rate [Right Radial] 71 Respiratory Rate 18 Blood Pressure 127/93 H Blood Pressure [Right Arm] 145/91 H Blood Pressure Mean [Right Arm] 109 Blood Pressure Source Blood Pressure Position 02 Sat by Pulse Oximetry 100 98 99 Oxygen Delivery Method Room Air 05/11/24 18:31 05/11/24 19:50 Temperature 98.0 F Temperature Source Oral Pulse Rate 54 L 77 Pulse Rate [Right Radial] Respiratory Rate 16 Blood Pressure 125/77 133/97 H Blood Pressure [Right Arm] Blood Pressure Mean [Right Arm] Blood Pressure Source Automatic Cuff Blood Pressure Position Supine 02 Sat by Pulse Oximetry 95 Oxygen Delivery Method Room Air Room Air Lab Data Lab Results 05/11/24 16:18: WBC 10.9 H, RBC 4.68, Hgb 14.9, Hct 43.6, MCV 93.2, MCH 31.8 H, MCHC 34.2, RDW 13.4, Plt Count 331, MPV 10.2, Neut % (Auto) 62.4, Lymph % (Auto) 29.5, [place] % (Auto) 5.1, Eos % (Auto) 2.1, Baso % (Auto) 0.5, Neut # (Auto) 6.8, Lymph # (Auto) 3.2, [place] # (Auto) 0.6, Eos # (Auto) 0.2, Baso # (Auto) 0.1, Sodium 136, Potassium 3.8, Chloride 110 H, Carbon Dioxide 24, Anion Gap 5.8, BUN 8, Creatinine 0.70, Estimated Creat Clear 119, Estimated GFR 91, Est GFR ( Amer) 111, Glucose 80, Calcium 8.9, Total Bilirubin 0.9, AST 30, ALT 19, Alkaline Phosphatase 82, Troponin I < 0.01, Total Protein 7.5, Albumin 4.1, Globulin 3.4 H, Albumin/Globulin Ratio 1.2, Lipase 47, TSH 2.27, Serum HCG, Qual Negative 05/11/24 16:24: HIV Ag/Ab Combo Qual Negative 05/11/24 16:18 05/11/24 16:18 Orders (Tests/Meds): ED MEDICATIONS Discontinued Medications Generic Name Dose Route Start Last Admin Trade Name Freq PRN Reason Stop Dose Admin Al Hydrox/Mg Hydrox/Simethicone 30 ml 05/11/24 16:23 05/11/24 16:41 Aluminum/Magnesium/Simethicone 30ml Udc PO 05/11/24 16:24 30 ml ONCE ONE Administration Famotidine 20 mg 05/11/24 16:23 05/11/24 16:42 Famotidine 20mg/2ml Vial IV 05/11/24 16:24 20 mg ONCE ONE Administration Iopamidol 75 ml 05/11/24 17:48 05/11/24 17:49 Iopamidol-370 (76%);100ml Bottle IV 05/11/24 17:49 75 ml ONCE ONE Administration Ondansetron HCl 4 mg 05/11/24 16:23 05/11/24 16:42 Ondansetron 4mg/2ml Vial IV 05/11/24 16:24 4 mg ONCE ONE Administration Sodium Chloride 8 ml 05/11/24 16:23 Sodium Chloride 0.9% 10ml Vial IV 06/10/24 16:22 NEEDED PRN dilute pepcid Sodium Chloride 10 ml 05/11/24 17:48 05/11/24 17:49 Sodium Chloride 0.9% 10ml Syr (Rad Only) IV 05/11/24 17:49 10 ml ONCE ONE Administration ORDERS Category Date Time Status CT abdomen pelvis w con Stat Cat Scan 05/11/24 16:23 Completed Chest XR -- portable [XR chest portable] Stat Exams 05/11/24 16:24 Completed CBC [Complete Blood Count Auto Diff] Stat Lab 05/11/24 16:18 Completed Comprehensive Metabolic Panel Stat Lab 05/11/24 16:18 Completed HIV Combo Stat Lab 05/11/24 16:24 Completed Hep C Ab with Reflex to RNA Stat Lab 05/11/24 16:18 Received Lipase Stat Lab 05/11/24 16:18 Completed Serum [HCG Qualitative, Serum] Stat Lab 05/11/24 16:18 Completed TSH [Thyroid Stimulating Hormone] Stat Lab 05/11/24 16:18 Completed Troponin I Q3H Lab 05/11/24 19:30 Ordered Troponin I Q3H Lab 05/11/24 22:30 Ordered Troponin I Stat Lab 05/11/24 16:18 Completed Medical Decision Narrative: Insert review patient is a 44-year-old female presenting to the emergency department for evaluation of several complaints including chest pressure, heart palpitations, cold sweats, abdominal pain, nausea and vomiting all symptoms off and on for 1 year. She feels like this might be reflux or maybe even an ulcer. She says she vomits bile.. Patient is hemodynamically stable and nontoxic- appearing upon arrival, afebrile. Differential diagnosis includes ulcer, reflux, chest pain among others. Workup will be conducted with hematologic labs, specific imaging including CT scan of abdomen. Initial inventions include crystalloid bolus, analgesics. Initial workup reviewed by me hematologic labs are remarkable for essentially unremarkable labs and normal CT scan. Imaging informally interpreted by me and remarkable for nothing acute. Formal imaging read remarkable for nothing acute. Upon repeat evaluation patient's pain is improved. Patient and I discussed following up with Bianka and getting a referral for GI to possibly scope for evaluation of an ulcer. The symptoms all sound more like problems with reflux and ulcer. Patient is happy to follow-up with Bianka. Patient is stable for discharge home. Critical Care Critical Care Time Critical Care Time: No
[2024-05-11] MEDS: ALUMINUM/MAGNESIUM/SIMETHICONE 30ML UDC 30 ML PO (16:41)
[2024-05-11] MEDS: FAMOTIDINE 20MG/2ML VIAL 20 MG IV (16:42)
[2024-05-11] MEDS: ONDANSETRON 4MG/2ML VIAL 4 MG IV (16:42)
[2024-05-11 16:43] LABS: Albumin Level 4.1 g/dl (3.5-5.0); Chloride 110 mmol/L (98-107)
[2024-05-11 16:44] LABS: Potassium 3.8 mmoL/L (3.5-5.1); Sodium 136 mmol/L (136-145)
[2024-05-11 16:46] LABS: Alanine Aminotransferase 19 U/L (12-78); Alkaline Phosphatase 82 U/L (38-126); Anion Gap 5.8 mEq/L (5-15); Aspartate Amino Transferase 30 U/L (14-36); Bilirubin,Total 0.9 mg/dl (0.2-1.3); Blood Urea Nitrogen 8 mg/dl (7-17); Carbon Dioxide 24 mmol/L (22.0-30.0); Creatinine Clearance Estimated 119 mL/min (50-200); Estimated Glomerular Filt Rate 91 ml/min (>60); GFR (African American) 111 ML/MIN (>60)
[2024-05-11 16:47] LABS: Albumin/Globulin Ratio 1.2 (1.1-1.8); Calcium 8.9 mg/dl (8.4-10.2); Globulin 3.4 g/dL (1.3-3.2); Glucose 80 mg/dl (74-100); Lipase 47 U/L (23-300); Total Protein,Serum 7.5 g/dl (6.3-8.2)
[2024-05-11 16:49] VITALS: PULSE 85; O2SAT 98
[2024-05-11 17:00] VITALS: BP 127/93; PULSE 63; O2SAT 99
[2024-05-11 17:00] LABS: Troponin I < 0.01 ng/ml (0.00-0.034)
[2024-05-11 17:12] LABS: White Blood Count 10.9 K/mm3 (4.8-10.8)
[2024-05-11 17:13] LABS: Eosinophils % 2.1 % (0.1-12.0); Hematocrit 43.6 % (37.0-47.0); Hemoglobin 14.9 g/dL (12.2-16.2); Lymphocytes % 29.5 % (10-50); Mean Corpuscular HGB Conc 34.2 g/dL (31.8-35.4); Mean Corpuscular Hemoglobin 31.8 pg (27.0-31.2); Mean Corpuscular Volume 93.2 fl (81-99); Mean Platelet Volume 10.2 fl (7.4-10.4); Monocytes % 5.1 % (1.7-9.3); Neutrophils % 62.4 % (37.0-80.0); Platelet Count 331 K/mm3 (142-424); Red Blood Count 4.68 M/mm3 (4.20-5.40); Red Cell Distribution Width 13.4 % (11.5-17.5)
[2024-05-11 17:14] LABS: Basophils # 0.1 K/mm3 (0-0.2); Basophils % 0.5 % (0.1-2.0); Eosinophils # 0.2 K/mm3 (0.0-0.4); Lymphocytes # 3.2 K/mm3 (0.7-4.5); Monocytes # 0.6 K/mm3 (0.1-1.0); Neutrophils # 6.8 K/mm3 (1.8-7.8)
[2024-05-11 17:17] LABS: Thyroid Stimulating Hormone 2.27 uIU/mL (0.465-4.68)
[2024-05-11 17:35] LABS: HCG Qualitative, Serum Negative (Negative)
[2024-05-11] MEDS: SODIUM CHLORIDE 0.9% 10ML SYR (RAD ONLY) 10 ML IV (17:49)
[2024-05-11] MEDS: IOPAMIDOL-370 (76%);100ML BOTTLE 75 ML IV (17:49)
[2024-05-11 18:31] VITALS: BP 125/77; PULSE 54; O2SAT 95
[2024-05-11 18:35] LABS: HIV Combo NEGATIVE (Negative)
[2024-05-11 19:50] VITALS: BP 133/97; PULSE 77; RESP 16; TEMP 36.7; O2SAT 98
[2024-05-13 10:08] LABS: HCV Ab Non Reactive (Non Reactive)
== END 2024-05-11 19:52 | disposition home or self-care (01) ==
PROVIDERS: Nurse Practitioner; Emergency Provider Student in an Organized Health Care Education/Training Program
DX: K21.9 Gastro-esophageal reflux disease without esophagitis (principal); R07.9 Chest pain, unspecified; R05.9 Cough, unspecified; R11.2 Nausea with vomiting, unspecified; R61 Generalized hyperhidrosis; R00.2 Palpitations; R10.9 Unspecified abdominal pain
CPT/HCPCS: 71045; 74177; 80050; 80053; 83690; 84443; 84484; 84703; 85025; 86803; 87389; 93005; 96374; 96375; 99285; J2405; Q9967; S0028

== ENCOUNTER 2024-09-18 15:35 | Outpatient (CLI) | payer OTHER, SELFPAY ==
[2024-09-18 16:58] LABS: Basophils # 0.1 K/mm3 (0-0.2); Basophils % 0.7 % (0.1-2.0); Eosinophils # 0.2 Kmm3 (0.0-0.4); Eosinophils % 2.5 % (0.1-12.0); Hematocrit 43.9 % (37.0-47.0); Hemoglobin 14.3 g/dL (12.2-16.2); Lymphocytes # 2.7 K/mm3 (0.7-4.5); Lymphocytes % 32.2 % (10-50); Mean Corpuscular HGB Conc 32.6 g/dL (31.8-35.4); Mean Platelet Volume 10.6 fl (7.4-10.4); Monocytes # 0.5 K/mm3 (0.1-1.0); Monocytes % 5.6 % (1.7-9.3); Neutrophils % 58.8 % (37.0-80.0); Nucleated Red Blood Cells # 0 10^3/uL; Nucleated Red Blood Cells % 0 %; Platelet Count 210 K/mm3 (142-424); Red Blood Count 4.62 M/mm3 (4.20-5.40); Red Cell Distribution Width 13.2 % (11.5-17.5); Red Cell Distribution Width-SD 46.5 fL; White Blood Count 8.4 K/mm3 (4.8-10.8)
[2024-09-18 17:03] LABS: D-Dimer 0.77 ug/mL (0.0-0.5)
[2024-09-18 17:07] LABS: Alanine Aminotransferase 16 U/L (12-78); Albumin Level 4.3 g/dl (3.5-5.0); Alkaline Phosphatase 82 U/L (38-126); Anion Gap 9.8 mEq/L (5-15); Aspartate Amino Transferase 20 U/L (14-36); Bilirubin,Direct 0.2 mg/dl (0.0-0.4); Bilirubin,Indirect 0.4 mg/dL (0.0-0.9); Bilirubin,Total 0.6 mg/dl (0.2-1.3); Bilirubin,Unconjugated 0.4 mg/dL (0.0-1.1); Blood Urea Nitrogen 12 mg/dl (7-17); Carbon Dioxide 23 mmol/L (22.0-30.0); Chloride 111 mmol/L (98-107); Cholesterol 194 mg/dl (140-200); Estimated Glomerular Filt Rate 109 ml/min (>60); GFR (African American) 132 ML/MIN (>60); Glucose 84 mg/dl (74-100); HDL Cholesterol 49 mg/dl (40-60); Potassium 3.8 mmoL/L (3.5-5.1); Sodium 140 mmol/L (136-145); Triglycerides 77 mg/dl (30-150); VLDL Cholesterol 15 mg/dL (0-40)
[2024-09-18 17:17] LABS: Direct LDL Cholesterol 111.57 mg/dL (100-129)
[2024-09-18 17:23] LABS: Free T4 (Free Thyroxine) 1.02 ng/dl (0.78-2.19)
[2024-09-18 17:37] LABS: Thyroid Stimulating Hormone 3.92 uIU/mL (0.465-4.68)
[2024-09-18 17:56] LABS: NT Pro Brain Natriuretic Pep. 135 pg/mL (0-125)
[2024-09-18 18:01] LABS: Troponin I < 0.01 ng/ml (0.00-0.034)
== END 2024-09-18 23:59 | disposition home or self-care (01) ==
LOC: LAB 15:36
PROVIDERS: PCP Nurse Practitioner Family; Visit Provider Nurse Practitioner Family
DX: R55 Syncope and collapse (principal); R06.09 Other forms of dyspnea; R00.2 Palpitations; I10 Essential (primary) hypertension; R07.89 Other chest pain; R00.1 Bradycardia, unspecified; D64.9 Anemia, unspecified; R42 Dizziness and giddiness; K21.9 Gastro-esophageal reflux disease without esophagitis; R07.9 Chest pain, unspecified; E78.5 Hyperlipidemia, unspecified; Z87.891 Personal history of nicotine dependence
CPT/HCPCS: 36415; 80048; 80061; 80076; 83880; 84439; 84443; 84484; 85025; 85378; 93270; 93272

== ENCOUNTER 2024-09-24 12:17 | Outpatient (CLI) | payer OTHER, SELFPAY ==
[2024-09-24 12:45] LABS: Blood Urea Nitrogen 11 mg/dl (7-17); Estimated Glomerular Filt Rate 91 ml/min (>60); GFR (African American) 111 ML/MIN (>60)
[2024-09-24] MEDS: SODIUM CHLORIDE 0.9% 10ML SYR (RAD ONLY) 10 ML IV (13:26)
[2024-09-24] MEDS: 0.9 % SODIUM CHLORIDE 50 ML VIAL IV (13:26)
[2024-09-24] MEDS: IOPAMIDOL-370 (76%);100ML BOTTLE 70 ML IV (13:26)
--- NOTE | 2024-09-24 13:45 | CT_ITS ---
FINAL REPORT TECHNIQUE: Axial imaging of the chest is obtained after the administration of contrast. 3-D MIP reformatted images were also obtained and reviewed per PE protocol. This study was performed with techniques to keep radiation doses as low as reasonably achievable (ALARA). Individualized dose reduction techniques using automated exposure control or adjustment of mA and/or kV according to the patient's size were employed. CLINICAL HISTORY: elevated d dimer COMPARISON: None FINDINGS: The pulmonary arteries are well filled. There is no evidence of pulmonary embolus. There is no aortic dissection. Heart size is normal. There is no mediastinal, hilar, or axillary lymphadenopathy. The lungs are clear. There is no pleural or pericardial effusion. Limited evaluation of the upper abdomen is without acute abnormality. Incidental note is made of a tiny gastric diverticulum. No acute osseous abnormality. IMPRESSION: No evidence of pulmonary embolism or aortic dissection. Reviewed, Interpreted and Dictated by Darlene Duff MD Transcribed by Jessica Wells Authenticated and [facility]
== END 2024-09-24 23:59 | disposition home or self-care (01) ==
LOC: RAD 12:18
PROVIDERS: PCP Nurse Practitioner Family; Visit Provider Nurse Practitioner Family
DX: R07.2 Precordial pain (principal); R79.89 Other specified abnormal findings of blood chemistry; R55 Syncope and collapse; R06.09 Other forms of dyspnea
CPT/HCPCS: 36415; 71275; 82565; 84520; Q9967

== ENCOUNTER 2024-09-25 11:52 | Outpatient (CLI) | payer OTHER, SELFPAY ==
[2024-09-25 12:01] VITALS: BMI 28.7
[2024-09-25 12:18] VITALS: BP 124/83; PULSE 72; RESP 16; O2SAT 97
[2024-09-25 12:43] LABS: HCG Qualitative, Serum Negative (Negative)
[2024-09-25 12:52] VITALS: BP 147/85; PULSE 63; RESP 18; O2SAT 99
[2024-09-25 12:55] VITALS: BP 139/82; PULSE 50; RESP 16; O2SAT 99
[2024-09-25 13:00] VITALS: BP 105/68; PULSE 51; RESP 16; O2SAT 100
--- NOTE | 2024-09-25 13:00 | CT_ITS ---
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 A noncontrast coronary calcium scan was performed. A CT attenuation threshold of 130 Hounsfield units (HU) was used for the detection of calcium in contiguous voxels of 1 sq mm in area to be counted as individual lesions. Bolus tracking in the ascending aorta with a threshold of 180 HU was performed. Immediately afterwards, ECG synchronized cardiac CT was then performed from the cardiac base to apex using retrospective gating with ECG tube current modulation. A total of 85 mL of Isovue 370 mg/mL contrast medium was administered at 5 mL/sec followed by a saline flush using a biphasic injection protocol. A tube voltage of 120 KVp was used. The patient received no medications prior to the cardiac CT. The average heart rate at the time of acquisition was 55 bpm and regular. Image Reconstruction Transaxial images were reconstructed at 0.67 mm slide thickness. Data was reviewed interactively on an advanced workstation capable of 2 and 3-dimensional displays in all conventional reconstruction formats, including multiplanar reformations, maximum intensity projections, curved multiplanar reformations, and volume rendered reconstructions. When applicable, selected routine images describing the relevant coronary anatomy and pathology were saved and sent to PACS. Complications None Technical Quality Overall image quality was good. Coronary artery opacification was adequate. Total DLP (Dose-Length Product) is 1878.5 mGy-cm. The reported value represents the total of one or more individual components during the CT acquisition of this date and at this time, and as such, the same value may appear in more than one CT report depending on the interpreting/reporting physicians. COMPARISON None FINDINGS CT Coronary Calcium Scoring LMA (Left Main Artery) = 0 LAD (Left Anterior Descending) = 0 LCX (Left Coronary Circumflex) = 0 RCA (Right Coronary Artery) = 0 Total Calcium Score = 0 using the AJ-130 method. The interpretation of the calcium heart score is based on the following continuum*: 0 = no calcified plaque detected (risk of coronary artery disease is very low ??? less than 5%) 1-10 = calcium detected in extremely minimal levels (risk of coronary diseases is still low ??? less than 10%) 11-100 = mild levels of plaque detected with certainty (mild or minimal narrowing of heart arteries is likely) 101-400 = definite,at least moderate levels of plaque detected (relatively high risk of a heart attack within 3-5 years) >401-999 = extensive levels of plaque detected (high risk of heart attack, high levels of vascular disease are present, high likelihood of at least one significant coronary narrowing) *The calcium heart score quantifies the burden of coronary calcification/plaque in the coronary arteries. The calcium heart score is not able to evaluate the presence or burden of non-calcified (i.e. soft) plaque. There is no identifiable calcification in the aortic valve, mitral annulus or mitral valve, pericardium, or myocardium. Coronary CT Angiography The coronary arterial system is right dominant. Quantitative Stenosis Grading: Left Main (LM): The left main originates normally from the left sinus of Valsalva. The LM bifurcates into the left anterior descending artery and left circumflex artery. The LM is patent with no evidence of atherosclerosis. Left Anterior Descending (LAD) and Diagonal Branches: The LAD gives off 3 diagonal branch(es). The LAD and its branches are patent with no evidence of atherosclerosis. There is no evidence of LAD-myocardial bridge. Left Circumflex (LCX) and Obtuse Marginals (OM): The LCX gives off 2 Obtuse Marginal (OM) branch(es). The LCX and its branches are patent with no evidence of atherosclerosis. Right Coronary Artery (RCA): The RCA originates normally from the right sinus of Valsalva. The RCA and its branches are patent with no evidence of atherosclerosis. Non-Coronary Cardiac Findings: Analysis of the left ventricular (LV) structure and function was performed after 3-D reconstruction of the LV from axial images, with user-corrected automatic contouring for assessment of LV volumes and user-defined reconstruction from oblique planes for measurement of 3-D cardiac structure and function. -The left ventricle systolic function is normal. -There is no left atrial appendage filling defect. Two right pulmonary veins and two left pulmonary veins drain normally into the left atrium. -No pericardial thickening or calcification. -Central and branch pulmonary arteries in the [id number] are unremarkable. -Thoracic aorta within the visualized thoracic aortic-branches in the [id number] is unremarkable. Extracardiac Structures No significant extra-cardiac findings. Note, however, that this study is focused on the cardiac findings. IMPRESSION -Absence of coronary calcification with an Agatston score = 0 using the AJ-130 method. -No evidence of significant flow-limiting atherosclerosis of the coronary arteries. -No evidence of myocardial bridges or coronary anomalies. -CAD-RADS 0. Management recommendations per ACC/AHA guidelines*, as clinically appropriate. *Recommendations: CAD RADS 0: Reassurance. Consider non-atherosclerotic causes of chest pain. CAD RADS 1: Consider non-atherosclerotic causes of chest pain. Consider preventive therapy and risk factor modification. CAD RADS 2: Consider non-atherosclerotic causes of chest pain. Consider preventive therapy and risk factor modification, particularly for patients with nonobstructive plaque in multiple segments. CAD RADS 3: Consider further functional testing. Consider symptom-guided anti-ischemic and preventive pharmacotherapy as well as risk factor modification per published guideline statements. CAD RADS 4A: Consider further functional testing or invasive coronary angiography with revascularization per published guideline statements. Consider symptom-guided anti-ischemic and preventive pharmacotherapy as well as risk factor modification per published guideline statements. CAD RADS 4B: Invasive coronary angiography recommended with revascularization per published guideline statements. Consider symptom-guided anti-ischemic and preventive pharmacotherapy as well as risk factor modification per published guideline statements. CAD RADS 5: Consider invasive angiography and/or viability assessment with revascularization per published guideline statements. Consider symptom-guided anti-ischemic and preventive pharmacotherapy as well as risk factor modification per published guideline statements. CRITICAL RESULT None COMMUNICATION Per this written report The coronary and cardiac findings of this CCTA were reviewed, reported, and signed by Max Kerr MD (Coordinator Of Placement) Conclusion Electronically signed by : Lulú Kerr MD 09/26/2024 13:02:16
[2024-09-25] MEDS: 0.9 % SODIUM CHLORIDE 50 ML VIAL IV (13:28)
[2024-09-25] MEDS: IOPAMIDOL-370 (76%);100ML BOTTLE 85 ML IV (13:28)
[2024-09-25] MEDS: SODIUM CHLORIDE 0.9% 10ML SYR (RAD ONLY) 10 ML IV (13:28)
== END 2024-09-25 13:35 | disposition home or self-care (01) ==
PROVIDERS: PCP Nurse Practitioner Family; Visit Provider Nurse Practitioner Family
DX: R07.89 Other chest pain (principal); R55 Syncope and collapse; R06.09 Other forms of dyspnea; R00.2 Palpitations; I10 Essential (primary) hypertension
CPT/HCPCS: 75574; 84703; Q9967

== ENCOUNTER 2024-09-30 14:48 | Outpatient (CLI) | payer OTHER, SELFPAY ==
--- NOTE | 2024-09-30 14:52 | CA_ITS ---
APPROVED REPORT EXAM: Comprehensive 2D, Doppler, and color-flow Echocardiogram Cracker Off: Staci Oglesby RVT Ht: 5 ft 3 in Wt: 162lbs BSA: 1.77 BP: 152/107 mmHg Indications: CP,SOA,HTN,PALPS,HLD,SMOKER 2D Dimensions LA Volume 24.90 mL LA Volume Index 14.07 mL/m2 (M/F) 16-34 M-Mode Dimensions RVDd 2.25 cm (0.9-2.6) LA Diam 3.18 cm (1.9-4.0) LVDd 4.20 cm (3.5-5.7) LVDs 2.79 cm (3.5-5.7) IVSd 0.54 cm (0.6-1.1) PWd 0.70 cm (0.6-1.1) EF (Teich) 62.70% FS 33.60% EDV (Teich) 78.60 mL TAPSE 1.97 (<1.7) ESV (Teich) 29.30 mL LV Diastology E Decel Time 150 (160-240 msec) E/A Ratio 1.5 Aortic Valve ISMAEL Index 1.73 cm2/m2 AoV Peak Dwayne. 92.0 (50-130 cm/s) AO Peak GR. 3.40 mmHg AO Mean GR. 2.00 (<5 mmHg) AO VTI 20.0 (18-25 cm) ISMAEL (VTI) 3.14 (2.5-4.5 cm2) Mitral Valve MV E Max Dwayne. 86.0 (40-130 cm/s) MV A Velocity 57.0 (40-130 cm/s) E/A Ratio 1.51 MV PHT 44.0 ms Pulmonary Valve PV Peak Velocity 86.0 (50-150 cm/s) Left Ventricle The left ventricle is normal size. The left ventricular systolic function is normal. The left ventricular ejection fraction is within the normal range. There is normal left ventricular wall thickness. There is normal LV segmental wall motion. The left ventricular diastolic function is normal. LVEF is 55%. Right Ventricle The right ventricle is mildly dilated. The right ventricular systolic function is normal. Atria The left atrium size is normal. The right atrium size is normal. There is no Doppler evidence of interatrial shunt. Aortic Valve The aortic valve is normal in structure. There is no aortic valvular stenosis. No aortic regurgitation. Mitral Valve The mitral valve is normal in structure. No evidence of mitral valve stenosis. Trace mitral regurgitation. Tricuspid Valve Tricuspid valve is grossly normal in structure and function. Trace tricuspid regurgitation. There is insufficient TR jet to estimate RVSP. Pulmonic Valve The pulmonary valve is normal in structure. Trace pulmonic regurgitation. Great Vessels The aortic root is normal in size. IVC is normal in size and collapses >50% with inspiration. Pericardium There is no pericardial effusion. Other Information Study Quality: Fair Conclusion Normal biventricular systolic function. Mild RV dilation. No significant valvular stenosis or regurgitation. In the setting of mildly dilated RV, further evaluation with limited TTE plus agitated saline administration (bubble study) is suggested to rule out interatrial shunt. Alternatively, evaluation for ARVC with cardiac MRI (ARVC protocol) and pulmonary workup are suggested, if clinically indicated and feasible. Electronically signed by : Lulú Kerr MD 10/06/2024 23:14:41
== END 2024-09-30 23:59 | disposition home or self-care (01) ==
LOC: RT 14:49
PROVIDERS: PCP Nurse Practitioner Family; Visit Provider Nurse Practitioner Family
DX: I11.9 Hypertensive heart disease without heart failure (principal); D64.9 Anemia, unspecified; E78.5 Hyperlipidemia, unspecified; K21.9 Gastro-esophageal reflux disease without esophagitis; F17.200 Nicotine dependence, unspecified, uncomplicated; R00.1 Bradycardia, unspecified; R00.2 Palpitations; R55 Syncope and collapse
CPT/HCPCS: 93306

== ENCOUNTER 2024-10-18 08:33 | Outpatient (CLI) | payer OTHER, SELFPAY ==
--- NOTE | 2024-10-18 09:30 | CA_ITS ---
APPROVED REPORT EXAM: Comprehensive 2D, Doppler, and color-flow Echocardiogram Vp Of Customer Experience Strategy: Mimi Russell RT(R) Ht: 5 ft 3 in Wt: 161lbs BSA: 1.76 BP: 128/75 mmHg Indications: mild RV dilation, smoker, palpitations, syncope, HTN, MARTINEZ, hyperlipidemia, orderd as a bubble study from recent echo. Echo Enhancing Agent Indication: Rule out Shunt Agent(s) / Amount(s) Used: Agitated Saline 20 cc 2D Dimensions LVEF (Interiano's) 59.30 % F: 54 - 74 LV Volume 75.40 mL F: 46 - 106 LV Volume Index 42.6 mL/m2 F: 29 - 61 EF AP4 56.40 % EF AP2 62.8 % EF BP 59.3 % GL Strain -19.1 % M-Mode Dimensions RVDd 2.67 cm (0.9-2.6) LA Diam 3.23 cm (1.9-4.0) LVDd 3.74 cm (3.5-5.7) LVDs 2.56 cm (3.5-5.7) IVSd 0.85 cm (0.6-1.1) PWd 0.71 cm (0.6-1.1) EF (Teich) 60.20% FS 31.60% EDV (Teich) 59.60 mL TAPSE 1.90 (<1.7) ESV (Teich) 23.70 mL LV Diastology E Decel Time 193 (160-240 msec) E/A Ratio 1.8 Mitral Valve MV E Max Dwayne. 85.0 (40-130 cm/s) MV A Velocity 48.0 (40-130 cm/s) E/A Ratio 1.77 MV PHT 57.0 ms Left Ventricle The left ventricle is normal size. The left ventricular systolic function is normal. The left ventricular ejection fraction is within the normal range. There is normal left ventricular wall thickness. There is normal LV segmental wall motion. The left ventricular diastolic function is normal. LVEF is 55%. Right Ventricle The right ventricle is normal size. The right ventricular systolic function is normal. Atria The left atrium size is normal. The right atrium size is normal. There is no Doppler evidence of interatrial shunt. Agitated saline administration demonstrates no evidence of interatrial shunt. Aortic Valve The aortic valve opens well. There is no aortic valvular stenosis. No aortic regurgitation is present. Mitral Valve The mitral valve is normal in structure. No evidence of mitral valve stenosis. There is no mitral valve regurgitation noted. Tricuspid Valve Tricuspid valve is grossly normal in structure and function. Trace tricuspid regurgitation. There is insufficient TR jet to estimate RVSP. Pulmonic Valve The pulmonary valve is normal in structure. Trace pulmonic regurgitation. Great Vessels The aortic root is normal in size. IVC is normal in size and collapses >50% with inspiration. Pericardium There is no pericardial effusion. Other Information Study Quality: Fair Conclusion Normal biventricular systolic function. No significant valvular stenosis or regurgitation. There is no Doppler evidence of interatrial shunt. Agitated saline administration demonstrates no evidence of interatrial shunt. Electronically signed by : Lulú Kerr MD 10/27/2024 20:21:21
== END 2024-10-18 23:59 | disposition home or self-care (01) ==
LOC: RT 08:34
PROVIDERS: PCP Nurse Practitioner Family; Visit Provider Nurse Practitioner Family
DX: I11.9 Hypertensive heart disease without heart failure (principal); F17.200 Nicotine dependence, unspecified, uncomplicated; E78.5 Hyperlipidemia, unspecified; R55 Syncope and collapse; R00.2 Palpitations
CPT/HCPCS: 93306

== ENCOUNTER 2024-10-25 09:55 | Outpatient (CLI) | payer OTHER, SELFPAY ==
--- OUTSIDE RECORDS SUMMARY | 2024-10-25 09:57 | XMS_ITS | Clinical Summary ---
Author Organization Healthcare Address [address] [place] [address] Care Team Providers Care Pet Sitter Name Role Phone Dorie Read APRN Primary Care Provider [phone] Allergies Active Allergy Reactions Criticality Noted Date Comments Amoxicillin Anaphylaxis,Swelling High 01/18/2022 Morphine Other - please docum ent in the comment field,Dizziness,Vomiting High 01/18/2022 Causes vomiting Medications famotidine (Pepcid) 20 MG tablet Take 1 tablet (20 mg) by mouth 2 (two) times a day. 01/14/20 22 Active FLUoxetine (PROzac) 20 MG capsule TAKE 1 CAPSULE BY MOUTH ONCE DAILY IN THE MORNING 01/14/20 22 Active loratadine (Claritin) 10 MG tablet Take 1 tablet (10 mg) by mouth 1 (one) time each day. 01/14/20 22 Active clobetasol (Temovate) 0.05 % ointment 06/06/19 23 Active Emgality 120 MG/ML injection INJECT 1 SYRINGE SUBCUTANEOUSLY ONCE EVERY MONTH FOR CHRONIC MIGRAINE, FIRST INJECTION TO BE GIVEN IN OFFICE FOR TRAINING/EDUCATIO N 05/31/19 23 Active polyethylene glycol (Miralax) 17 GM/SCOOP powder MIX 1 CAPFUL IN 4-8 OUNCES OF LIQUID AND DRINK ONCE DAILY 01/28/20 22 Active Ubrelvy 100 MG tablet 06/06/19 23 Active valsartan (Diovan) 40 MG tablet Take 1 tablet (40 mg) by mouth 2 (two) times a day. 05/18/20 22 Active ketoconazole (NIZOral) 2 % shampoo APPLY SHAMPOO THREE TIMES A WEEK TO SCALP IN THE SHOWER; LATHER FOR 5 MINUTES THEN RINSE 09/06/19 23 Active Nerve Stimulator (TENS Therapy Pain Relief) deviceIndications: Lumbar radiculopathy, right Apply it for right lower back lumbar radiculopathy 1 each 01/25/20 23 Active Additional Information Patient not taking.Reported on 02/23/2023 pregabalin (Lyrica) 75 MG capsuleIndications :Fibromyalgia Take 1 capsule (75 mg) by mouth 3 (three) times a day. 90 capsule 5 01/12/20 24 Active celecoxib (CeleBREX) 200 MG capsuleIndications :Lumbar radiculopathy, right,Primary osteoarthritis involving multiple joints Take 1 capsule (200 mg) by mouth 2 (two) times a day. 90 capsule 5 01/12/20 24 Active leflunomide (Arava) 20 MG tabletIndications: Psoriatic arthritis (CMS/HCC),Plaque psoriasis Take 1 tablet (20 mg) by mouth 1 (one) time each day. 30 tablet 3 01/12/20 24 Active Secukinumab (Cosentyx Sensoready Pen) 150 MG/ML solution auto-injectorIndic ations:Psoriatic arthritis (CMS/HCC) Inject 150 mg under the skin every 28 (twenty-eight) days. 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 Eye pain, bilateral 01/18/2022 Vertigo 01/18/2022 Muscle spasms of both lower extremities 01/19/20 22 Overview (01/18/2022): Bilateral upper and lower extremities and face. Muscle cramps 01/18/2022 Overview (01/18/2022): Of bilateral lower extremities. Fatigue 01/18/2022 Difficulty concentrating 01/18/2022 Hypertension 01/18/2022 Severe anxiety with panic 01/18/2022 Panic attacks 01/18/2022 Encounters Date Type Department Care Team Description 08/02/2024 Refill [facility] [address] [place] [address] Kamari George MD Fibromyalgia from Last 3 Months Immunizations Immunization Administration Dates Next Due Moderna COVID-19 Vaccine (Re d Cap) 12+ years 01/13/2022,08/13/2021,05/29/2021 Family History Medical History Relation Name Comments Arthritis Father Jimbo Swain Heart attack Father Jimbo Swain Heart disease Father Jimbo Swain Hypertension Father Jimbo Swain Stroke Father Jimbo Swain bone deficiency Father Jimbo Swain Arthritis Father's Brother 1 Petros Swain Cancer Father's Brother 1 Petros Swain Arthritis Father's Brother 2 Dale Wiliam Arthritis Father's Sister 1 Veena Plano Autoimmune disease Father's Sister 1 Veena Plano Cancer Father's Sister 1 Veena Plano Autoimmune disease Father's Sister 2 LOBO VITAI Arthritis Maternal Grandmother Neeru Paz Stroke Maternal Grandmother Neeru Paz Cancer Mother Chano Paz Cervical cancer Mother Chano Paz Heart attack Mother Chano Paz Heart disease Mother Chano Paz Hypertension Mother Chano Paz Stroke Mother Chano Paz Stroke Mother's Brother Doe Paz Stroke Mother's Sister Chris Rose Heart disease Paternal Grandfather Dave Swain Autoimmune disease Paternal Grandmother Nuria Swain Arthritis Sister 1 Tiarra Hernandez Fibromyalgia Sister 1 Tiarra Hernandez Miscarriages / Stillbirths Sister 1 Tiarra Hernandez Arthritis Sister 2 Allison Rossi Autoimmune disease Sister 2 Allison Rossi Rheumatologic disease Sister 2 Allison Rossi Asthma Son Omar Santiago Relation Name Status Comments Father Jimbo Swain Father's Brother 1 Petros Swain Father's Brother 2 Dale Swain Father's Sister 1 Veena Vazquez Father's Sister 2 LOBO GREEN Maternal Grandmother Neeru Paz Mother Chano Paz Mother's Brother Doe Paz Mother's Sister Chris Rose Paternal Grandfather Dave Swain Paternal Grandmother Nuria Swain Sister 1 Tiarra Hernandez Sister 2 Allison Rossi Son Omar Santiago Social History Tobacco Use Types Packs/Day Years Used Date Smoking Tobacco: Every Day Cigarettes 1 34.4 Started: 1990 Smokeless Tobacco: Never Tobacco Cessation:Ready to Q uit: Not Asked; Counseling Given: Not Answered Alcohol Use Standard Drinks/Week Comments Not Currently 0 (1 standard drink = 0.6 oz pur e alcohol) quit 1 year ago PHQ-2 Answer Date Recorded Patient Health Questionnaire-2 Score 0 01/12/2024 PHQ-9 Answer Date Recorded Patient Health Questionnaire-9 Score 22 01/24/2023 PHQ-2A Answer Date Recorded Patient Health Questionnaire-2 Score 6 01/24/2023 Comments No Sex and Gender Information Value Date Recorded Sex Assigned at Not on file Legal Sex Female 6:56 PM EDT Gender Identity Not on file Sexual Orientation Not on file Last Filed Vital Signs Vital Sign Reading Time Taken Comments Blood Pressure 139/94 01/12/2024 2:02 PM EDT Pulse 71 01/12/2024 2:02 PM EDT Temperature 36.8 C (98.2 F) 01/12/2024 2:02 PM EDT Respiratory Rate 18 06/10/2022 10:4 0 AM EST Oxygen Saturation 97% 01/12/2024 2:02 PM EDT Inhaled Oxygen Concentration - - Weight 81.1 kg (178 lb 12.7 oz) 01/12/2024 2:02 PM EDT Height 160 cm (5' 3 ) 01/12/2024 2:02 PM EDT Body Mass Index 31.67 01/12/2024 2:02 PM EDT Plan of Treatment Health Maintenance Due Date Last Done Comments [facility]-HIV Screening 1981 [facility]-Infant/Child/Adol SDOH Screenings 1981 [facility]-Varicella Vaccines (1 of 2 - 13+ 2-dose series) 1994 HPV Vaccines (1 - 3-dose series) 02/22/1996 [facility]- SDOH Screenings 1999 [facility]-Adult SDOH Screenings 1999 [facility]-DTaP,Tdap,and Td Vaccines (1 - Tdap) 02/22/2000 [facility]-Hepatitis B Vaccines (1 of 3 - 19+ 3-dose series) 02/22/2000 [facility]-Pneumococcal Vaccine: Pediatrics (0 to 5 Years) and At-Risk Patients (6 to 49 Years) (1 of 2 - PCV) 02/22/2000 [facility]-Zoster Vaccines (1 of 2) 02/22/2000 [facility]-Pap Smear 2002 [facility]-Cervical Cancer Screening 2011 [facility]-HPV/Cotest 2011 [id number] Vaccine ( season) 2024 01/13/2022, 08/13/2021, 05/29/2021 [facility]-Depression Screening 01/11/2025 01/12/2024, 09/0 09/2022 [facility]-Influenza Vaccine (Season Ended) 2025 [facility]-Hepatitis C Screening Completed 06/10/2022 [facility]-Obesity Intervention Completed 024, 02/23/2023, 01/24/2023, Additional history exists [facility]-HIB Vaccines Aged Out No longer e ligible based on patient's age to complete this topic [facility]-Hepatitis A Vaccines Aged Out No longer eligible based on patient's age to complete this topic [facility]-IPV Vaccines Aged Out No longer e ligible based on patient's age to complete this topic [facility]-Rotavirus Vaccines Aged Out No lo nger eligible based on patient's age to complete this topic Procedures Procedure Name Priority Date/Time Associated Diagnosis Comments ACUTE HEPATITIS PANEL Routine 06/10/2022 11:53 AM EST High risk medication use from Last 3 Months or Most Recently Relevant to Health Maintenance Results * Hepatitis panel, acute (06/10/2022 11:53 AM EST) Hepatitis B Surf Antigen Negative Negative 06/10/2022 5:38 PM EST [facility] Hepatitis C Antibody Negative Negative 06/10/2022 5:38 PM EST [facility] Hepatitis A Antibody IgM Negative Negative 06/10/2022 5:38 PM EST [facility] Hepatitis B Core Antibody IgM Negative Negative 06/10/2022 5:38 PM EST [facility] Blood Venous blood specimen / Unknown Venipuncture / Unknown 06/10/2022 11:53 AM EST 06/10/2022 11:53 AM EST Kamari George MD LAB BLOOD ORDERABLES Fi nal Result Performing Organization Address City/State/[facility] Co de Phone Number [facility] [address] [place] [address] from Last 3 Months or Most Recently Relevant to Health Maintenance Insurance Care Teams Pet Sitter Relationship Specialty Start Date End Date Dorie Read APRN [address] [place] [address] PCP - General 06/10/22
--- OUTSIDE RECORDS SUMMARY | 2024-10-25 09:57 | XMS_ITS | Encounter Summary ---
Author Organization Healthcare Address [address] [place] [address] Care Team Providers Care Clinical Information Systems Director Name Role Phone John Hall MD Primary Care Provider [phone] Dorie Read APRN Primary Care Provider [phone] Encounter Details Date Type Department Care Team (Late st Contact Info) Description 03/17/2022 Community [facility] [address] [place] [address] Dorie Read APRN [address] [place] [address] (Fax) Double vision (Primary Dx); Eye pain, bilateral; Ophthalmoplegic migraine, not intractable Social History Tobacco Use Types Packs/Day Years Used Date Smoking Tobacco: Every Day Cigarettes Smokeless Tobacco: Never Alcohol Use Standard Drinks/Week Comments Not Currently 0 (1 standard drink = 0.6 oz pur e alcohol) quit 1 year ago Comments No Sex and Gender Information Value Date Recorded Sex Assigned at Not on file Legal Sex Female 6:56 PM EDT Gender Identity Not on file Sexual Orientation Not on file documented as of this encounter Plan of Treatment Not on file documented as of this encounter Visit Diagnoses Diagnosis Double vision- Primary Diplopia Eye pain, bilateral Ophthalmoplegic migraine, not intractable documented in this encounter Care Teams Clinical Information Systems Director Relationship Specialty Start Date End Date John Hall MD [address] [place] [address] PCP - General 12/10/21 06/09/22 Dorie Read APRN [address] [place] [address] PCP - General 06/10/22 documented as of this encounter
--- OUTSIDE RECORDS SUMMARY | 2024-10-25 09:58 | XMS_ITS | Data Portability ---
Author Organization [facility] Address [address] [place] [address] Care Team Providers Care User Experience Manager Name Role Phone RYANN MORA Pediatric Neuropsychologist [phone] TRAVIS BERMAN Wood Pile Driver Operator NEAL WILLOUGHBY Conference Service Coordinator CHARMAINE VENEGAS Neurologist TRUNG SIMON Neurologist JOZEF FERGUSON Field Care Coordinator [phone] Assessment No assessment recorded. Plan of Treatment Reminders Order Date Submit Date Provider Last Modified By Organization Details Last Modified Time Details Appointments None recorded. Lab None recorded. Referral cardiologis t referral 2022 023 [facility] Ryann Mora MD, [address], [place], [address], 3 10:28:44 pain management referral 2022 023 [facility], [address], [place], [address], 3 08:34:01 gynecologis t referral 2021 022 [facility] Karlie Almaguer DO, [address], [place], [address], 3 14:57:21 Procedures None recorded. Surgeries None recorded. Imaging electrocard iogram 2023 024 [facility], [address] [facility], [place], [address], 4 15:54:49 electrocard iogram 2022 023 [email or web address] [facility], [address] [facility], [place], [address], 3 15:23:01 XR, lumbosacral spine, 2 or 3 view 2021 022 [facility] ([facility]), [address], [place], [address], 3 16:37:00 Medication Orders Miralax 17 gram/dose oral powder 2023 024 [facility], [address], [address], 4 15:48:01 Claritin 10 mg tablet 2023 024 [facility], [address] [place] [address], [address], 4 15:48:01 valsartan 40 mg tablet 2023 024 [facility], [address], [address], 4 15:48:01 famotidine 20 mg tablet 2023 024 [facility], [address] [place] [address], [address], 4 15:48:01 fluoxetine 20 mg capsule 2023 024 [facility], [address] [place] [address], [address], 4 15:47:57 valsartan 40 mg tablet 2022 023 [facility], [address], [address], 3 15:10:05 dexamethaso ne sodium phosphate 4 mg/mL injection solution 2022 023 cindy Not available 4 14:35:01 fluticasone propionate 50 mcg/actuati on nasal spray,suspe nsion 2022 023 [facility], [address], [address], 3 15:09:25 Keflex 500 mg capsule 2022 023 [facility], [address], [address], 4 14:33:40 prednisone 20 mg tablet 2022 023 [facility], [address], [address], 4 14:37:46 Patient TargetsNo targets recorded. Patient Instructions Encounter Date Encounter Id Patient Instructions Last Modified By Organization Details Last Modified Time 11/03/2022 [id number] learning about healthy weight efryman Not available 11/04/2022 10:20:51 body mass index: care instructions efryman Not available 11/04/2022 10:20:51 Reason for Referral Rehabilitation Nurse Referral for Ab normal uterine bleeding Referring Physician: [facility], Encounter Date: 05/12/2022 Pain Management Referral for Chronic low back pain Referring Physician: [facility], Encounter Date: 11/03/2022 Pediatric Neuropsychologist Referral for Ch est pain Referring Physician: [facility], Encounter Date: 01/05/2023 Results Created Date Observation Date Name Description Value Unit Range Abnormal Flag Note LastModifiedBy Organization Detail LastModifiedTime 06/30/1906/30/2022 XR, lumbo sacra l spine , 2 or 3 view No observ ation [facility] [address], [place], [address], 07/04/2022 15:14:57 01/06/20 23 01/05/2023 elect rocar diogr am No observ ation record ed. [address], [address], 01/05/2023 15:09:27 01/07/20 23 01/05/2023 elect rocar diogr am No observ ation record ed. [email or web address] [address], [address], 01/06/2023 11:58:04 01/15/20 24 01/15/2024 elect rocar diogr am No observ ation record ed. [address], [address], 01/15/2024 15:55:09 01/15/20 24 01/15/2024 elect rocar diogr am No observ ation record ed. [email or web address] [address], [address], 01/17/2024 08:50:44 Result Notes None recorded. Problems Name Problem SNOMED Code Status Onset Date Resolution Date Notes Provider Name and Address Organization Details Recorded Time Spasm 86278130 Active 2021 Veena [place]is, [place] - [facility] 2 11:20:17 [facility] Active 2021 Ruthie Wright, AIR EXPORT OPERATIONS AGENT [address], [place], [address], [place] - [facility] 3 10:17:33 Plaque psoriasis 990022929 Active 2021 Ruthie Wright, AIR EXPORT OPERATIONS AGENT [address], [place], [address], [place] [facility] 3 10:17:30 Psoriatic arthritis 045691605 Active 2021 Ruthie Wright, AIR EX[employer] OPERATIONS AGENT [address], [place], [address], [place] [facility] 3 10:17:23 Anxiety 66455467 Active 2021 Ruthie Wright, AIR EXPORT OPERATIONS AGENT [address], [place], [address], [place] [facility] 3 10:17:09 History of migraine 769386686 Active 2021 Veena Stears null, [place] - [facility] 2 11:21:38 Osteophyte of bone 2415015288282 00 Active 2021 bone spur inneck Veena Stears null, [place] - [facility] 2 11:22:24 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 Procedures Surgical History Date Name Laterality Status Provider Name and Address Organization Details Recorded Time Colonoscopy completed Veena Stears [place] - [facility] 05/12/2022 11:29:55 section completed Veena Stears [place] [facility] 05/12/2022 11:30:03 Cholecystectomy, laparoscopic completed Veena Stears [place] - [facility] 05/12/2022 11:30:09 kidney stone analysis completed Veena Stears [place] - [facility] 05/12/2022 11:30:19 Removal of fallopian tube completed Loren Lewis [place] - [facility] 11/03/2022 16:08:24 Imaging Results None recorded. Procedure Notes None recorded. Medical Equipment None Reported. Allergies Allergen ID Allergen Name Allergen Category Reaction Reaction Severity Criticality Documentation Date Start Date Code Code System Note Provider Name and Address Organization Details Recorded Time 334433 amoxicill in medicatio n Not available Not available Not available 05/12/2022 723 RxNorm Veena Stears null, [place] - [facility] 11:14:55 528967 morphine medicatio n Not available Not available Not available 05/12/2022 7052 RxNorm Veena Stears null, [place] - [facility] 11:15:01 Medications Name Sig Start Date Stop Date Status Note LastModified by Organization Details LastModified Time celecoxib 200 mg capsule TAKE 1 CAPSULE BY MOUTH TWICE DAILY active Not Available Not Available No t Available cyclobenzap rine 10 mg tablet TAKE 1/2 (ONE-HALF ) TABLET BY MOUTH THREE TIMES DAILY NEEDED FOR MUSCLE SPASM active Not Available Not Available No t Available Miralax 17 gram/dose oral powder Take 1 g every day by oral route as needed. 2023 active Not Available Not Available Not Avai lable ketoconazol e 2 % shampoo APPLY SHAMPOO THREE TIMES A WEEK TO SCALP IN THE SHOWER; LATHER FOR 5 MINUTES THEN RINSE active Not Available Not Available No t Available tizanidine 2 mg tablet TAKE 2 TABLETS BY MOUTH TWICE DAILY NEEDED FOR MUSCLE SPASM 11/03 completed Not Available Not Available Not Available azithromyci n 250 mg tablet TAKE 2 TABLETS BY MOUTH ON DAY 1, AND THEN TAKE 1 TABLET BY MOUTH ONCE A DAY ON DAY 2 THROUGH DAY 5 05/12 completed Not Available Not Available Not Available ibuprofen 800 mg tablet TAKE ONE TABLET BY MOUTH EVERY 8 HOURS NEEDED FOR PAIN --TAKE WITH FOOD-- 11/03 completed Not Available Not Available Not Available hydrocodone 5 mg-acetamin ophen 325 mg tablet TAKE ONE TABLET BY MOUTH EVERY 6 HOURS NEEDED FOR PAIN 11/03 completed Not Available Not Available Not Available prednisone 20 mg tablet TAKE 1 TABLET BY MOUTH TWICE DAILY FOR 5 DAYS, START TOMORROW 01/14 completed Not Available Not Available Not Available leflunomide 10 mg tablet TAKE 1 TABLET BY MOUTH ONCE DAILY 01/14 completed Not Available Not Available Not Available leflunomide 20 mg tablet TAKE 1 TABLET BY MOUTH ONCE DAILY active Not Available Not Available No t Available ketorolac 10 mg tablet TAKE 1 TABLET BY MOUTH EVERY 6 HOURS NEEDED FOR MODERATE PAIN 05/12 completed Not Available Not Available Not Available famotidine 20 mg tablet Take 1 tablet twice a day by oral route. 2023 active Not Available Not Available Not Avai lable cephalexin 500 mg capsule TAKE 1 CAPSULE BY MOUTH TWICE DAILY FOR 10 DAYS 01/14 completed Not Available Not Available Not Available propranolol ER 80 mg capsule,24 hr,extended release TAKE 1 CAPSULE BY MOUTH ONCE DAILY 05/12 completed Not Available Not Available Not Available triamcinolo ne acetonide 0.025 % topical ointment APPLY OINTMENT TWICE DAILY UNDER BREASTS FOR 1-2 WEEKS THEN TAKE 1 WEEK BREAK BEFORE RESUMING 05/12 completed Not Available Not Available Not Available omeprazole 20 mg capsule,del ayed release TAKE 1 CAPSULE BY MOUTH TWICE DAILY 30 MINUTES TO 1 HOUR BEFORE MEAL 05/12 completed Not Available Not Available Not Available diclofenac sodium 75 mg tablet,mary yed release TAKE 1 TABLET BY MOUTH TWICE DAILY DO NOT CRUSH CHEW OR SPLIT 01/14 completed Not Available Not Available Not Available clobetasol 0.05 % topical ointment APPLY A THIN LAYER, TWICE A DAY TO RED PATCHES ON LEGS AND ELBOWS(AR EAS OF PSORIASIS ) USE FOR 3 WEEKS, THEN DO NOT USE FOR 1 WEEK. AVOID ON FACE, ARMPITS AND GROIN active Not Available Not Available No t Available dexamethaso ne sodium phosphate 4 mg/mL injection solution Inject 4 mg every day by intramusc ular route. 01/14 completed Not Available Not Available Not Available clobetasol 0.05 % scalp solution APPLY SOLUTION TWICE DAILY TO AFFECTED AREAS ON SCALP FOR TWO WEEKS THEN TAKE A WEEK BREAK. PART HAIR, APPLY DROPS ON SCALP AND RUB IN. DO NOT USE ON FACE, ARMPITS, OR GROIN active Not Available Not Available No t Available fluoxetine 20 mg capsule TAKE 1 CAPSULE BY MOUTH ONCE DAILY IN THE MORNING active Not Available Not Available No t Available fluticasone propionate 50 mcg/actuati on nasal spray,suspe nsion USE 1 SPRAY(S) IN EACH NOSTRIL ONCE DAILY active Not Available Not Available No t Available loratadine 10 mg tablet TAKE 1 TABLET BY MOUTH ONCE DAILY active Not Available Not Available No t Available naproxen 500 mg tablet TAKE 1 TABLET BY MOUTH EVERY 12 HOURS NEEDED active Not Available Not Available No t Available valsartan 40 mg tablet TAKE 1 TABLET BY MOUTH TWICE DAILY active Not Available Not Available No t Available duloxetine 30 mg capsule,del ayed release TAKE 1 CAPSULE BY MOUTH ONCE DAILY 05/12 completed Not Available Not Available Not Available duloxetine 60 mg capsule,del ayed release TAKE 1 CAPSULE BY MOUTH ONCE DAILY 11/03 completed Not Available Not Available Not Available pregabalin 25 mg capsule TAKE 1 CAPSULE BY MOUTH TWICE DAILY 11/03 completed Not Available Not Available Not Available pregabalin 50 mg capsule TAKE 1 CAPSULE BY MOUTH THREE TIMES DAILY 11/03 completed Not Available Not Available Not Available pregabalin 75 mg capsule TAKE 1 CAPSULE BY MOUTH THREE TIMES DAILY active Not Available Not Available No t Available cholecalcif lydia (vitamin D3) 1,250 mcg (50,000 unit) capsule TAKE 1 CAPSULE BY MOUTH ONCE A WEEK 05/12 completed Not Available Not Available Not Available diclofenac 1 % topical gel APPLY 2 GRAMS TOPICALLY 4 TIMES DAILY TO SINGLE ELBOW, WRIST OR HAND. FOR HAND INCLUDES PALM/FING ERS/BACK OF HAND 05/12 completed Not Available Not Available Not Available Emgality Pen 120 mg/mL subcutaneou s pen injector INJECT 1 SYRINGE SUBCUTANE OUSLY ONCE EVERY MONTH NEEDED FOR CHRONIC MIGRAINE active Not Available Not Available No t Available Tremfya 100 mg/mL subcutaneou s auto-inject or 01/14 completed Not Available Not Available Not Available Ubrelvy 100 mg tablet TAKE 100 MG AT ONSET OF HEADACHE. MAY REPEAT 100 MG AFTER 2 HOURS. MAX DOSE 200 MG IN 24 HOURS active Not Available Not Available No t Available Nurtec ODT 75 mg disintegrat ing tablet DISSOLVE 1 TABLET BY MOUTH EVERY OTHER DAY FOR INTRACTAB LE MIGRAINE 05/12 completed Not Available Not Available Not Available Vitals Date Recorded Body height Body mass index (BMI) Body weight Body temperature Heart rate Oxygen saturation Oxygen saturation in Arterial blood by Pulse oximetry Respiratory rate Systolic blood pressure Diastolic blood pressure Provider Name and Address Organization Details Last Updated DateTime 3 160.02 cm 34.2 kg/m2 86536.7 3 g 97.6 [degF] 83 /min 98 % 98 % 18 /min 130 mm[Hg] 82 mm[Hg] Loren Lewis [place] - [facility] 3 16:00:03 Date Recorded Body height Body mass index (BMI) Body weight Respiratory rate Oxygen saturation Oxygen saturation in Arterial blood by Pulse oximetry Heart rate Body temperature Systolic blood pressure Diastolic blood pressure Provider Name and Address Organization Details Last Updated DateTime 3 160.02 cm 32.8 kg/m2 91275.5 9 g 18 /min 98 % 98 % 80 /min 98 [degF] 138 mm[Hg] 78 mm[Hg] Veena Green [place] - [facility] 3 14:15:03 Date Recorded Body weight Heart rate Body temperature Oxygen saturation Oxygen saturation in Arterial blood by Pulse oximetry Respiratory rate Body mass index (BMI) Body height Systolic blood pressure Diastolic blood pressure Provider Name and Address Organization Details Last Updated DateTime 4 21278.0 3 g 77 /min 97.9 [degF] 98 % 98 % 18 /min 31.7 kg/m2 160.02 cm 128 mm[Hg] 80 mm[Hg] Loren Lewis [place] - [facility] 4 14:32:14 Date Recorded Body weight Body mass index (BMI) Body height Respiratory rate Oxygen saturation Oxygen saturation in Arterial blood by Pulse oximetry Body temperature Heart rate Systolic blood pressure Diastolic blood pressure Provider Name and Address Organization Details Last Updated DateTime 2 74626.3 3 g 34.2 kg/m2 160.02 cm 18 /min 97 % 97 % 97 [degF] 82 /min 136 mm[Hg] 80 mm[Hg] Veena Green [place] - [facility] 2 11:10:17 Social History Question Answer Notes LastModified by Organizat ion Details LastModified Time Tobacco Smoking Status Current Every Day Smoker Veena Green [facility], [place] - [facility] 05/12/2022 11:27:59 Do You Have An Advance Directive? No Information not available 05/12/2022 Are You Blind Or Do You Have Difficulty Seeing? Yes Has Double Vision Information not available 05/12/2022 What Is Your Level Of Caffeine Consumption? Occasional Information not available 05/12/2022 Are You Deaf Or Do You Have Serious Difficulty Hearing? Yes Bilateral, Problems With Ear Drums Information not available 05/12/2022 What Type Of Diet Are You Following? REGULAR Information not available 05/12/2022 What Is The Highest Grade Or Level Of School You Have Completed Or The Highest Degree You Have Received? [id number] Information not available 05/12/2022 Have There Been Any Changes To Your Family Or Social Situation? No Information not available 05/12/2022 What Is The Fluoride Status Of Your Home? Unknown Information not available 05/12/2022 Do You Have A Medical Power Of Electric Tripper Machine Operator? No Information not available 05/12/2022 What Was The Date Of Your Most Recent Tobacco Screening? 01/15/2024 Information not available 01/15/2024 How Many Children Do You Have? 0 Information not available 05/12/2022 What Is Your Current Pack Years? 10-19packyear s Information not available 05/12/2022 What Is Your Relationship Status? Single Information not available 05/12/2022 Do You Have Smoke And Carbon Monoxide Detectors In Your Home? Yes Information not available 05/12/2022 At What Age Did You Start Smoking Tobacco? 13 Information not available 05/12/2022 Are You Passively Exposed To Smoke? Yes Information not available 05/12/2022 How Much Tobacco Do You Smoke? 0.5 PPD Information not available 05/12/2022 Has Tobacco Cessation Counseling Been Provided? Yes Information not available 11/03/2022 On What Date Was Tobacco Cessation Counseling Provided? 01/15/2024 Information not available 01/15/2024 How Many Years Have You Smoked Tobacco? 29 Information not available 05/12/2022 Do You Have Difficulty Walking Or Climbing Stairs? No Information not available 05/12/2022 How Many Years Have You Used E-cigarettes Or Vape? 1 Only Used 1 Time Information not available 05/12/2022 Sex: Female Functional Status Question Answer Note LastModified by Organizat ion Details LastModified Time Do you use any illicit or recreational drugs? No Information not available 05/12/2022 Do you or have you ever used any other forms of tobacco or nicotine? Yes Information not available 05/12/2022 What is your level of alcohol consumption? None Information not available 05/12/2022 Do you or have you ever used smokeless tobacco? Never used smokeless tobacco Information not available 05/12/2022 Are you currently employed? No Information not available 05/12/2022 Do you have transportation difficulties? No Information not available 05/12/2022 Are you able to walk? YESWOREST Information not available 05/12/2022 Do you have difficulty doing errands alone? No Information not available 05/12/2022 Are you able to care for yourself? Yes Information n ot available 05/12/2022 Do you have difficulty dressing or bathing? No Information not available 05/12/2022 Do you or have you ever used e-cigarettes or vape? Former user of electronic cigarettes Information not available 05/12/2022 What is your exercise level? Occasional Information not available 05/12/2022 Mental Status Question Answer Note LastModified by Organizat ion Details LastModified Time Do you feel stressed (tense, restless, nervous, or anxious, or unable to sleep at night)? [id number] Information not available 05/12/2022 Do you have difficulty concentrating, remembering or making decisions? No Information no t available 05/12/2022 Family History Relationship Description Onset Age of this Age Resolved Age Notes LastModified by Organization Details LastModified Time Unspecified Relation Arthritis bstears Not available 022 11:24:09 Mother Malignant tumor of cervix bstears Not available 2021 11:24:47 Mother Heart disease bstears Not available 2021 11:24:58 Mother Vascular disorder bstears Not available 2021 11:25:06 Father Heart disease bstears Not available 2021 11:24:58 Notes:bone deficiency Medical History No medical history recorded. Gynecological History Statement/Question Response Date of Last Colonoscopy Date of Last Mammogram Most Recent Bone Density Date of LMP 12/11/2023 Menses Monthly Y Date of Last Pap Smear LMP Approximate Obstetrics History GPAL:G 1 P 0 1 1 1 Type Value Multiple Births 0 Induced 0 Spontaneous 1 Premature 1 Living 1 Ectopics 0 Total 1 Immunizations Vaccine Type Date Status Note Provider Tushar sapp and Address Organization Details Recorded Time COVID-19, mRNA, LNP-S, PF, 100 mcg/0.5mL dose or 50 mcg/0.25mL dose 08/13/2021 completed Veena Stears [place], [place] - [facility] 05/12/2022 11:06:00 COVID-19, mRNA, LNP-S, PF, 100 mcg/0.5mL dose or 50 mcg/0.25mL dose 05/29/2021 completed Veena Ste[place], [place] - [facility] 05/12/2022 11:06:00 COVID-19, mRNA, LNP-S, PF, 100 mcg/0.5mL dose or 50 mcg/0.25mL dose 01/13/2022 completed Veena Stears null, [place] - [facility] 05/12/2022 11:06:00 Past Encounters Encounter ID Performer Location Encounter Start Date Encounter Closed Date Diagnosis/Indication Diagnosis SNOMED-CT Code Diagnosis ICD10 Code Diagnosis Note [id number] Ruthie Wright [address] [address] 05/12/2022 10:53:26 05/12/2022 12:26:24 Low back pain 402817700 M54.50 follow up with her pcp for more work up Abnormal u terine bleeding 7185373598 9100 N93.9 [id number] Ruthie Wright [address] [address] 11/03/2022 15:37:02 11/03/2022 16:49:06 Body mass index 30+ - obesity 566544733 Z68.34 Obesity 600916506 E66.9 Fibromyalgia 061553288 M 79.7 Plaque psoriasis 1318190 09 L40.0 Psoriatic arthritis 1563 77847 L40.50 Chronic low back pain 27 8708515 M54.50 [id number] Ruthie Wright [address] [address] 01/05/2023 14:02:06 01/05/2023 15:23:01 Psoriatic arthritis 688421849 L40.50 Pain of mu ltiple joints 72685226 M25.50 Acute maxi llary sinusitis 78081243 J01.00 Chest pain 78387225 R07. 9 Essential hypertension 11501835 I10 [id number] Ruthie Wright APRN [facility] [address] [place] [address] 01/15/2024 13:52:13 01/15/2024 15:44:46 Chronic constipation 652645782 K59.09 Chest wall pain 91821542 6 R07.89 sent to ed for evaluation of chest pain. family is driving her to er Depressive disorder 4385 5518 F32.A Gastroesop hageal reflux disease without esophagitis 664669358 K21.9 Hypertensive disorder 38 149689 I10 Allergic rhinitis 988054 04 J30.9 Health Concerns Section Related Observation LastModified by Organization Detai ls LastModified Time None Recorded Concern Status LastModified by Organization Details LastModified Time None Recorded Advance Directives Directive N: Payers Insurance Date Sequence Insurance Name Policy Number Policy Pradhan Covered Member ID Pradhan Member ID Guarantor Name 01/23/2024 1 [place] [facility] [id number] Ronald Swain [id number] Ronald Swain 01/24/2024 [place] [facility] [place]ILLING (MEDICAID) [facility] [id number] Ronald Swain [id number] Ronald Swain 05/12/2022 1 *SELF PAY* Melanie Swain Notes Date Note Type Note Provider Name and Address Organization Details Recorded Time 05/12/2022 text/html Ronald is a 42 ye ar old female who presents to the office today with concerns ofwants a 2nd opinion on neck spasms and double visionback pain-thinks sciaticwants to discuss control due to heavy/painful menstruation Ruthie Wright APRN [address], [place], [address], [place] - [facility] 05/20/2022 16:16:33 11/03/2022 text/html 42 yr old female with muscle weakness. She wants to establish care here. Requesting a tens unit.pt states she has multiple complaints1. request a tens unit and pain management consult for her chronic low back pain. she is only interested in injections and tens. she has been seeing a chiropractor and helps some but does not take all the symptoms away2. needs a note stating she can not work at this time so she can get her food stamps back. pt states at this time her back pain is preventing her from doing anything.3. pt states the muscle weakness and joint pain from her fibro/arthritis has been stable but prevents her from doing much.pt states she recently had labs and will have them faxed over Leilalucia Wright APRN [address], [place], [address], [place] - [facility] 11/04/2022 10:21:43 01/05/2023 text/html Ronald is a 42 ye ar old female who presents to the office today with concerns ofsinus headache, dizziness,sinus pressure and tendernessright hip pain, multiple joint pain- pt states this is a normal flare up for herrib pain (middle of the chest) radiating into left side of back, sharp pain when breathing in deep x 1 yearalso needs refill of bp med Ruthie Wright APRN [address], [place], [address], [place] - [facility] 01/05/2023 15:10:18 01/15/2024 text/html 43 yr old female for multiple complaints. She has soa, heart palpitations, black out spell, nausea that is worse with eating for 2 months. She is having a flare of costocondritis per her child health associate. Ruthie Wright APRN [address], [place], [address], [place] - [facility] 01/15/2024 15:52:45 OBGyn Episode No OBEpisode recorded.
--- NOTE | 2024-10-25 10:30 | MR_ITS ---
APPROVED REPORT District Manager: CLINICAL INDICATION Possible RV dilation on TTE, evaluation for ARVC vs shunt. TECHNIQUE Image Acquisition: Cardiac magnetic resonance (CMR) was performed on Siemens Espree MRI 1.5T scanner. Software platform sequences were performed using the Siemens Zipidee MR B19 platform. A set of three-plane, low-resolution, large [id number] localizers were initially acquired. Then axial, coronal, sagittal TrueFISP, as well as axial HASTE images, were obtained. These were followed by gated TrueFISP breathold cinematic sequences obtained in the short axis with 8 mm slices and 2 mm gaps, 2-chamber (vertical long axis), 3-chamber, 4-chamber (horizontal long axis). A bolus of contrast was injected intravenously with first-pass sequences obtained in the short axis and four-chamber planes. After approximately 10 minutes, a TI multi skilled operator sequence was performed to determine the optimal TI time. Using the optimized TI time, delayed contrast enhancement segmented inversion???recovery TurboFLASH sequences were obtained in the short axis, 2-chamber, 3-chamber, and 4-chamber projections. 2D-velocity phase mapping was performed. Functional parameters were calculated by offline analysis on an independent workstation ([employer] Platform, [employer]). Contrast: ProHance??? (Gadoteridol) FINDINGS MORPHOLOGY AND FUNCTION Left ventricle: The left ventricle is normal in size. The indexed left ventricular end-diastolic volume (LVEDVi) is 62 ml/m2 (reference range 57-105 ml/m2 in males, 56-96 ml/m2 in females). Normal left ventricular systolic function is present. There is normal left ventricular wall thickness. There are no regional wall motion abnormalities noted. LVEF is calculated at 65.0% (reference range 57-77%). Right ventricle: The right ventricle is normal in size. The indexed right ventricular end-diastolic volume (RVEDVi) is 63 ml/m2 (reference range 61-121 ml/m2 in males, 48-112 ml/m2 in females). Normal right ventricular systolic function is present. RVEF is calculated at 53.4% (reference range 52-72% in males, 51-71% in females). Atria: The left atrium is normal in size. The maximum indexed left atrial volume is 28 ml/m2 (reference range 26-52 ml/m2 in males, 27-53 ml/m2 in females). The right atrium is normal in size. The maximum indexed right atrial volume is 18 ml/m2 (reference range 18-90 ml/m2). Aorta: The diameter of the aortic annulus is normal, measuring 20 mm (coronal view reference range 21-30 mm in males, 19-27 mm in females). The diameter of the aortic sinus is normal, measuring 29 mm (coronal view reference range 25-42 mm in males, 24-36 mm in females). The diameter of the sinotubular junction is normal, measuring 25 mm (coronal view reference range 18-32 mm in males, 18-28 mm in females). The diameters of the ascending and descending thoracic aorta are normal. Main pulmonary artery: The main pulmonary artery diameter is normal. Pericardium: The pericardial thickness is normal. The pericardial thickness measures 1.5 mm (normal < 4.0 mm). There is no pericardial effusion. VALVES The valvular morphologies in the visualized sequences appear normal. There is no significant valvular stenosis or regurgitation of the mitral, aortic, tricuspid, or pulmonic valve noted visually. Systolic anterior motion of the mitral valve is not visualized. Ratio of pulmonary to systemic flow, Qp:Qs ratio = 1.07 (normal < or = 1.2, hemodynamically significant shunt > 1.5), demonstrating no evidence of hemodynamically significant shunt. TISSUE CHARACTERIZATION Resting Perfusion: Normal myocardial blood flow at rest. No evidence of resting hypoperfusion. Myocardial Fibrosis and/or edema: Normal gadolinium kinetics are present. No evidence of late gadolinium enhancement is noted, consistent with absence of myocardial scarring, infarction, or necrosis. T2-weighted imaging demonstrates no evidence of myocardial edema or inflammation. OTHER No other significant findings are noted. However, this exam is focused on the cardiac structure and function. IMPRESSION Normal LV size with normal LV systolic function. LVEDVi= 62 ml/m2 and LVEF= 65.0%. Normal RV size with normal RV systolic function. RVEDVi= 63 ml/m2 and RVEF= 53.4%. No atrial enlargement. No CMR evidence of myocardial scarring, infarction, or necrosis. No evidence of myocardial edema or inflammation. Perfusion analysis demonstrates normal blood flow at rest with no evidence of resting hypoperfusion. Ratio of pulmonary to systemic flow, Qp:Qs ratio = 1.07 (normal < or = 1.2, hemodynamically significant shunt > 1.5), demonstrating no evidence of hemodynamically significant shunt. Overall, this CMR demonstrates normal biventricular size and systolic function. No CMR evidence of cardiomyopathy or ARVC. Normal Qp:Qs ratio consistent with absence of hemodynamically significant shunt. COMPARISON None CRITICAL RESULT None COMMUNICATION As above The findings of this cardiac MR were reviewed, reported, and signed by Max Kerr MD ([employer]). Conclusion Electronically signed by : Lulú Kerr MD 11/24/2024 23:37:55
[2024-10-25] MEDS: 0.9 % SODIUM CHLORIDE 50 ML VIAL IV (11:05)
[2024-10-25] MEDS: SODIUM CHLORIDE 0.9% 10ML SYR (RAD ONLY) 10 ML IV (11:05)
[2024-10-25] MEDS: GADOTERIDOL INJ 20ML SYRINGE 17 ML IV (11:06)
== END 2024-10-25 23:59 | disposition home or self-care (01) ==
LOC: RAD 09:55
PROVIDERS: PCP Nurse Practitioner Family; Visit Provider Nurse Practitioner Family
DX: I42.8 Other cardiomyopathies (principal); I51.7 Cardiomegaly
CPT/HCPCS: 75561; A9576

== ENCOUNTER 2024-12-09 09:25 | Outpatient (CLI) | payer OTHER, SELFPAY ==
--- OUTSIDE RECORDS SUMMARY | 2023-12-04 04:27 | XMS_ITS | Continuity of Care Document ---
Author Organization [facility] Address [address] [place] [address] Phone Care Team Providers Care [place] Nurse Name Role Phone Jacek MSN, FOOD AND [employer]EVER[employer] LEAD, Cynthia Unavailable Unavai lable Allergies, Adverse Reactions, Alerts Substance Reaction Status Criticality morphine Active No Information amoxicillin Active No Information Medications Medication Instructions Dosage Effective Dates (start - stop) Status Comments Famotidine 20 MG Oral Tablet Take 1 tablet by mouth twice daily - Active duloxetine 60 mg capsule,delayed release take 1 capsule by oral route every day 60 MG - Active valsartan 40 mg tablet take 1 tablet by oral route 2 times every day 40 MG - Active Emgality Pen 120 mg/mL subcutaneous pen injector inject (120MG) by subcutaneous route every month in the abdomen, thigh, outer upper arm, or buttocks 120 MG - Active tizanidine 4 mg capsule take 1 capsule by oral route two times daily as needed - Active magnesium 250 mg tablet take 1 tablet by oral route every evening on the first one or two days of cycle, as needed 1 tablet - Active fluoxetine 20 mg capsule take 1 capsule by oral route every day in the morning 20 MG - Active Miralax 17 gram/dose oral powder use one packet or capfull PO every day: disolve in 4-8 oz of liquid. - Active Lyrica 25 mg capsule take 1 capsule by oral route 2 times every day 25 MG - Active loratadine 10 mg tablet take 1 tablet by oral route every day 10 MG - Active Vitamin D2 1,250 mcg (50,000 unit) capsule take 1 capsule by oral route every week for 12 weeks 1 capsule - Active Advance Directives Directive Yes / No Effective Date File Name No Information Encounters Encounter Description Practice Location Reason(s) For Visit Diagnoses Date Provider [facility], [address] [place] [address], [facility], tel:[phone] [facility] [place] No Information 4 Read Cynthia. [address] [place], [place], [address] [place] [address] , . tel: [phone] [facility], [address] [place] [address], [facility], tel:[phone] [facility] [place] No Information 3 Read Cynthia. [address] [place] [address], [address] [place] [address] , . tel: [phone] [facility], [address] [place] [address], [facility], tel:[phone] [facility] [place] follow up labs (chief complaint) Vitamin B12 deficiency anemia, unspecifiedAnxiety disorder, unspecifiedDepression, unspecifiedEssential (primary) hypertensionMigraine, unspecified, intractable, with status migrainosusVitamin D deficiencySciatica 2 Read Cynthia. [address] [place] [address], [address] [place] [address] , . tel: [phone] [facility], [address] [place] [address], [facility], tel:[phone] [facility] [place] joint pain (chief complaint)f ollow up (chief complaint) Anxiety disorder, unspecifiedDouble visionEssential (primary) hypertensionSubclinical iodine-deficiency hypothyroidismVitamin B12 deficiency anemia, unspecifiedMyalgiaBody mass index [BMI] 35.0-35.9, adult 2 Read Cynthia. [address] [place] [address], [id number] , . tel:[phone] [facility], [address] [place] [address], [facility], tel:[phone] [facility] [place] B12 INJECTION (chief complaint)D OUBLE VISION (chief complaint)N erve Pain/Issues (chief complaint)a nxiety and depression (chief complaint) Vitamin B12 deficiency anemia, unspecifiedAnxiety disorder, unspecifiedDepression, unspecifiedEsophageal refluxEssential (primary) hypertensionMyalgiaDoubl e visionSubclinical iodine-deficiency hypothyroidismEncounter for immunizationPatient's noncompliance with other medical treatment and regimen due to unspecified reason 2 Read Cynthia. [address] [place], [place], [id number] , . tel: [phone] [facility], [address] [place] [address], [facility], tel:[phone] [facility] [place] B12 INJECTION (chief complaint) Vitamin B12 deficiency anemia, unspecified 0 2 Read Cynthia. [address] [place], [place], [id number] , [place]. tel: [phone] [facility], [address] [place] [address], [facility], tel:[phone] [facility] [place] B12 INJECTION (chief complaint)P APERWORK (chief complaint) Vitamin B12 deficiency anemia, unspecified 2 Read Cynthia. [address] [place], [place], [id number] , [place]. tel: [phone] [facility], [address] [place] [address], [facility], [place] tel:[phone] [facility] [place] Follow up on Labs and Medication (chief complaint) Vitamin B12 deficiency anemia, unspecifiedAnxiety disorder, unspecifiedMigraine, unspecified, intractable, with status migrainosusOther chest painEsophageal refluxBradycardia, unspecifiedConstipation Jan-0 2 Jacek Oshea. [address] [place], [place], [id number] , [place]. tel: [phone] [facility], [address] [place], [address], [place] tel:[phone] Care (chief complaint) Encounter for screening for depressionEncounter for screening examination for other mental health and behavioral disordersAnxiety disorder, unspecifiedDepression, unspecifiedMyalgiaSleep disorder, unspecifiedMigraine, unspecified, intractable, with status migrainosusEsophageal refluxEssential (primary) hypertensionEncntr screen mammogram for malignant neoplasm of breastDysphagiaEncounter for screening, unspecified 2 Jacek Oshea. [address] [place], [place], [id number] , [place]. tel: [phone] Family History Family Member Type Diagnosis Age At Onset Sister Problem Alive and well Mother Problem hypertension Mother Problem from a Heart Attack Son Problem hypertension Father Problem Diabetes mellitus Sister Problem Alive and well Mother Problem malignant neoplasm of cervix uteri Son Problem Diabetes mellitus Mother Problem Diabetes mellitus Son Problem Alive and well Sister Problem Alive and well Sister Problem Alive and well Father Problem hypertension Father Problem Bone Deficiency and Heart Is sues Father Problem from a Heart Attack Sister Problem Fibromyalgia and Rhemathoid Arthritis Immunizations Vaccine Date Status Comments COVID-19 mRNA (MOD) administered Source: Other Registry COVID-19 mRNA (MOD) administered Source: Other Registry COVID-19 mRNA (MOD) administered Source: Other Registry SARS-COV-2 (COVID-19) vaccin e, mRNA, spike protein, LNP, bivalent booster, preservative free, 50 mcg/0.5 mL or 25 mcg/0.25 mL dose (Moderna) pending Source: New I mmunization Record Influenza Flulaval pending Source: N ew Immunization Record Payers Payer name Insurance type Covered republican ID Authoriza tion(s) [facility]- Medicaid [place] [employer] [id number] [facility]- Medicaid [place] [employer] Payer [id number] Social History Type Description Quantity Date Captured Comments Sex Female Smoking Status No Information Sexual Orientation Straight or heterosexual Dec Gender Identity Female Chief Complaint And Reason For Visit No Information Plan Of Treatment Date Type Action Status Goal Vitamin D. Due on due Goal Generalized Anxi ety Disorder - 7 (WILBER-7). Due on due Goal Tobacco Use Scre ening. Due on due Goal Tobacco Use Cess ation Counseling. Due on due Goal CBC. Due on due Goal Drug Abuse Scree mirian Test (DAST-10). Due on due Goal Hepatitis C Scre ening. Due on due Goal Obtain Height, W eight, and BMI. Due on due Goal HIV screen. Due on due Goal Depression scree mirian. Due on due Goal HPV testing. Due on due Goal CMP. Due on due Goal Follow up Plan f or abnormal BMI (Less than 18.5, greater than 25). Due on due Goal PAP. Due on due Goal Lipid panel. Due on due Goal Vitamin B12. Due on due Goal TSH. Due on due Goal ECG. Due on due Goal Obtain blood Pre ssure. Due on due Goal Urinalysis. Due on due Goal Diabetes screening. Due on due Goal TSH. Due on due Goal CMP. Due on due Goal HIV screen. Due on due Goal Generalized Anxi ety Disorder - 7 (WILBER-7). Due on due Goal Vitamin D. Due on due Goal Hepatitis C Scre ening. Due on due Goal HPV testing. Due on due Goal Lipid panel. Due on due Goal Vitamin B12. Due on due Goal CBC. Due on due Goal Tobacco Use Scre ening. Due on due Goal Diabetes screening. Due on due Goal Urinalysis. Due on due Goal Obtain blood Pre ssure. Due on due Goal ECG. Due on due Goal Depression scree mirian. Due on due Goal Follow up Plan f or abnormal BMI (Less than 18.5, greater than 25). Due on due Goal Tobacco Use Cess ation Counseling. Due on due Goal Drug Abuse Scree mirian Test (DAST-10). Due on due Goal PAP. Due on due Goal Obtain Height, W eight, and BMI. Due on due Goal Dietary manageme nt education, guidance, and counseling completed Goal HPV testing. Due on due Goal Generalized Anxi ety Disorder - 7 (WILBER-7). Due on due Goal Drug Abuse Scree mirian Test (DAST-10). Due on due Goal Tobacco Use Cess ation Counseling. Due on due Goal PAP. Due on due Goal HIV screen. Due on due Goal Tobacco Use Scre ening. Due on due Goal Vitamin D. Due on due Goal CMP. Due on due Goal Depression scree mirian. Due on due Goal Follow up Plan f or abnormal BMI (Less than 18.5, greater than 25). Due on due Goal TSH. Due on due Goal Obtain Height, W eight, and BMI. Due on due Goal Vitamin B12. Due on due Goal Hepatitis C Scre ening. Due on due Goal Lipid panel. Due on due Goal CBC. Due on due Goal ECG. Due on due Goal Urinalysis. Due on due Goal Obtain blood Pre ssure. Due on due Goal Diabetes screening. Due on due Goal Lipid panel. Due on due Goal CMP. Due on due Goal Vitamin D. Due on due Goal Tobacco Use Cess ation Counseling. Due on due Goal PAP. Due on due Goal Hepatitis C Scre ening. Due on due Goal CBC. Due on due Goal Depression scree mirian. Due on due Goal Obtain Height, W eight, and BMI. Due on due Goal HIV screen. Due on due Goal Generalized Anxi ety Disorder - 7 (WILBER-7). Due on due Goal Drug Abuse Scree mirian Test (DAST-10). Due on due Goal HPV testing. Due on due Goal TSH. Due on due Goal Follow up Plan f or abnormal BMI (Less than 18.5, greater than 25). Due on due Goal Vitamin B12. Due on due Goal Influenza vaccine. Due on Oc due Goal Tobacco Use Scre ening. Due on due Goal Urinalysis. Due on due Goal Obtain blood Pre ssure. Due on due Goal ECG. Due on due Goal Diabetes screening. Due on O due Goal Lipid panel. Due on due Goal CMP. Due on due Goal Vitamin D. Due on due Goal Tobacco Use Cess ation Counseling. Due on due Goal PAP. Due on due Goal Hepatitis C Scre ening. Due on due Goal CBC. Due on due Goal Depression scree mirian. Due on due Goal Obtain Height, W eight, and BMI. Due on due Goal HIV screen. Due on due Goal Generalized Anxi ety Disorder - 7 (WILBER-7). Due on due Goal Drug Abuse Scree mirian Test (DAST-10). Due on due Goal HPV testing. Due on due Goal TSH. Due on due Goal Follow up Plan f or abnormal BMI (Less than 18.5, greater than 25). Due on due Goal Vitamin B12. Due on due Goal Influenza vaccine. Due on Oc due Goal Tobacco Use Scre ening. Due on due Goal Urinalysis. Due on due Goal Obtain blood Pre ssure. Due on due Goal ECG. Due on due Goal Diabetes screening. Due on due Goal CMP. Due on due Goal TSH. Due on due Goal Influenza vaccine. Due on Au due Goal Vitamin D. Due on due Goal CBC. Due on due Goal HIV screen. Due on due Goal PAP. Due on due Goal Generalized Anxi ety Disorder - 7 (WILBER-7). Due on due Goal Tobacco Use Scre ening. Due on due Goal Drug Abuse Scree mirian Test (DAST-10). Due on due Goal Depression scree mirian. Due on due Goal Follow up Plan f or abnormal BMI (Less than 18.5, greater than 25). Due on due Goal Vitamin B12. Due on due Goal Obtain Height, W eight, and BMI. Due on due Goal Lipid panel. Due on due Goal HPV testing. Due on due Goal Hepatitis C Scre ening. Due on due Goal Tobacco Use Cess ation Counseling. Due on due Goal ECG. Due on due Goal Urinalysis. Due on due Goal Obtain blood Pre ssure. Due on due Goal Diabetes screening. Due on A due Goal Follow up Plan f or abnormal BMI (Less than 18.5, greater than 25). Due on due Goal PAP. Due on due Goal Hepatitis C Scre ening. Due on due Goal Generalized Anxi ety Disorder - 7 (WILBER-7). Due on due Goal Influenza vaccine. Due on due Goal HPV testing. Due on due Goal Drug Abuse Scree mirian Test (DAST-10). Due on due Goal Depression scree mirian. Due on due Goal CMP. Due on due Goal Obtain Height, W eight, and BMI. Due on due Goal Tobacco Use Scre ening. Due on due Goal TSH. Due on due Goal Vitamin B12. Due on due Goal Vitamin D. Due on due Goal Tobacco Use Cess ation Counseling. Due on due Goal Lipid panel. Due on due Goal CBC. Due on due Goal HIV screen. Due on due Goal ECG. Due on due Goal Obtain blood Pre ssure. Due on due Goal Urinalysis. Due on due Goal Diabetes screening. Due on due Goal Tobacco cessation counseling completed Referral Referred To: [facility]hthal[facility] Ordered: Referrals: Ophthalmology. [facility]. Location: [facility] office. Evaluate and treat Appointment date/timeframe: 1 Week ordered Referral Referred To: [facility] Ordered: Referrals: Radiotherapy. [facility]. Location: [place] Appointment date/timeframe: 02/01/2022 ordered Referral Referred To: [facility]: Gas Ordered: Referrals: Gastroenterology. [facility]: Gas. Location: [place]. Evaluate and treat Appointment date/timeframe: 02/15/2022 ordered Referral Referred To: [facility] outpatinet Ordered: Referrals: Radiotherapy. [facility] outpatinet. Location: [place]. Diagnostic testing Appointment date/timeframe: 02/01/2022 ordered Referral Referred To: Lubna Dominguez MD Ordered: Referrals: Neurology. Lubna Dominguez MD. Location: [facility], [place] [facility]. Evaluate and treat Appointment date/timeframe: 01/20/2022 ordered Unknown Immunization SARS-COV-2 (COVI D-19) vaccine, mRNA, spike protein, LNP, bivalent booster, preservative free, 50 mcg/0.5 mL or 25 mcg/0.25 mL dose (Moderna) ordered Unknown Immunization Influenza Flulaval ordered Future Order: Lab Order VITAMIN B12 (162), Ordered on: Ordered Future Order: Lab Order MAGNESIU M ([id number]), Scheduled for: Ordered Future Order: Lab Order TSH W/RE FLEX TO FREE T4 ([id number]), Scheduled for: Ordered Future Order: Lab Order SED RATE BY MODIFIED WESTERGREN ([id number]), Scheduled for: Ordered Future Order: Lab Order CREATINE KINASE, TOTAL ([id number]), Scheduled for: Ordered Future Order: Lab Order CYCLIC C ITRULLINATED PEPTIDE (CCP) AB (IGG) ([id number]), Scheduled for: Ordered Future Order: Lab Order FSH AND LH ([id number]), Scheduled for: Ordered Future Order: Lab Order ESTRADIO L ([id number]), Scheduled for: Ordered History Of Present Illness Encounter Date Complaint History Of Prese nt Illness follow up labs Ronald is here to day to f/u on labs and multitude of complaints:Labs overall ok. Sed rate elevated at 31, Immuglobin A 346- likely in relation to her RAShe follows up with Rheumatology on May reports she has continued back pain that radiates down both legs, has knee discomfort, pain is a shooting pain that sometimes feels like electric. She denies incontinence of urine/stool, denies numbness/tingling. States her legs do feel weak.She reports her father has hx of DDD and she thinks she may too have this. She is to go tomorrow for her MRA of head/brain as well as xrays of c-spine ordered by Neurology.She has started Tizazidine but states it takes too long to kick in and then she is unable to remember anything.She did start Emgality on Monday04/11/22 for migrainesShe states she has started taking Ibuprofen again because it is the only thing that helps She was advised to not take ibuprofen as it can cause rebound headaches, and also drive her BP up.She then states, I only take it in an emergency. She has not been to ENT for dizzinezzness/hearing loss but is scheduled sometime in Apr- she does not recall at this timeShe has not followed up with Cardiology but plans to make an appt w/ Dr. Mora, who read her Echo from the ER on 02/01/22- which was normal.Celiac testing was negative for celiac disesase/wheat allergyShsenait still complains of epigastric pain, lower abdominal pain/crampingReports that she did have ETOH over the holidays which made everything worseShsenait has been an known alcoholic in the past- states that this was a poor choice on her part States that she is not drinking anymore it was just on the holiday.Since has had increase epigastric pain, all things are flared. She did have a gastro doc, but does not wish to see them at this time until other issues are resolved. She is due for her Pap- last done in 2019 at [facility] is to be scheduled back for her pap/std testing to be completed hereB12 has returned to normal -693, so we will start monthly b12 injections.Her anxiety and depression scores were high today at 18-anxiety, and 26 for depressionShsenait has appt today with [facility] and I have recommended medication management to be completed through them.She is interested in [facility] test, but left prior to getting the information about it. Duloxetine was increased at last visit- she does not notice a difference at this time. joint pain Onset: 7 years a go. It occurs constantly. Additional information: also c/o back pain within last two weeks, wants Duloxetine increased. follow up Ronald is here to day to f/u on her anxiety/depression among many other multiple complaints.She continues to voice problems with migraines-present todayBeatriz went to Neurology for follow up as requested by myselfOV on 03/31/22Nurtec and Ubrelvy were both stopped- pt reported they did not workEmgality pen written for pt- Pt has not returned to neuro for 1st injection and educationShe voices that she continues to have neck/back pain and spasms. Was taking flexeril, but caused drowsiness. She then asked her Rhuematologist (after being denied by neruology) to change flexeril to Tinazidine- Medication was sent to pharmacy yesterday, but pt reports she has not picked it up yet. MR angio head w/o contrast, and MR head/brain w/o contrast ordered by Neuro- pt has not scheduled appt Xrays also ordered of c spine flex/ext- has not scheduledReferrals made to ENT for dizziness/continued tinitis, and marian hearing lossAls to PT for physical therapy sessions that pt previously did not go to.she is also to have a home sleep study completedShe was to f/u with cardiology for further testing. Recent echo was normal 02/01/22- but she did not return for requested work upshe self reduced her dose of lyrica, unsure what dose she is actually taking now. today she asked to increase duloxetine for better pain control of continued back and neck spasms and wants to know what to do to help the pain.I quite frankly told her she should try the new medication that Rheumatology has sent her, start taking the new medication Emgality for her migraines, go to PT that was ordered by Neuro, continue to do stretching, exercise as tolerated, and weight loss would all contribute to her overall feeling better. She may also feel better since we increased duloxetine as well.Pt states she has irregular periods, more cramping this time and is concerned w/ perimonopause.Request to have estridol checkedBeatriz currently has started taking magnesium on her own to aid in her muscle spasms- advised she could take this no more than 3 times weekly, would likely help most the 1st few days of her periods.She smokes and has htn- not a canidate for oral contraceptivesShe also would like to have celiac testing to see if her myalgia/inflammation may be related to wheat allergychronic joint pain/back/[painsees [facility] rhematology- will go back to them in of alcohol abuse- states she has not drank for 1 year continues to have double vision, states it is difficult to drive- waiting appt w/ [facility]- referral was made by me 03/16/22pt given phone # to call and schedule her appointment DOUBLE VISION Pt states that h er double vision is worsening. It is now in both eyes and occurs daily. The double vision is side by side, horizontal per the patient. She is also experiencing blurriness daily. The patient states that when she closes one eye that the double vision goes away. The pt stated that due to these issues it has become difficult for her to drive a vehicle. She has to drive with one eye closed at times. She is requesting to be referred to a [facility] Opthamologist.She was dx in past with congenital esophoria OS, fixed double vision, but her last Neurology note from Lubna Dominguez MD stated that it was resolved in 2019. She had recent eye exam at [facility] , Dr. Deidra Bustamante, on 03/09/22 at [facility] [place]. DX: Myopia OU Refraction perfomred, Advised to have a comprehensive eye exam in 12 months. Visual acuity was 20/20 OD,OS, and OUShe had a conslutation via [facility] portal with Rhematology on 03/15/22 with complaints of increased double/blurred vision, fears of going blind. She also reports having sharp pains in her neck that shoots down to her arms. Currently on Lyrica via Rhematology, she also has been taking cyclobenazaprine 10mg daily at bedtime. She was sent to Physical therapy where she did 2 weeks then has not returned for 3 weeks. She was encouraged to do 4-6 weeks of therapy. [facility]uerology is who refered her to pt. Today she states she has tremorrs: she has missed 2 f/u appts on 02/21 and 03/[address] Dominguez. I encouraged her today to make a new appointment for further evaluation of nerve pains. It was recommended that she also see a neuro ophthalomogist as well.I will make the referral to Joslyn Canales today. anxiety and depression Anxiety h as improved with Fluoxetine/duloxetine comboreports compliance with medicationsStill under lots of stress- unable to work r/t her double vision and pain in her opinionShe states she is about to lose her father's land whom passed last year, as well as her motherRecent ECHO was completed 02/01/22 and was within normal limitsPropanolol was stopped in e states the cp, soa dizziness is gone, and thinks that it all may have just been anxiety BP is controlled today 122/86 Nerve Pain/Issues Pt states that she is having tremors in her hands and her muscles are always stiff and hurt. She stated that no matter what position she is in, her limbs are numb. She is experiencing muscle spasms in the back of her neck that feel like she is being shocked. She has feelings that things are crawling on her and there is nothing there and other times it feels like cold water is running down her body. PT stated that she is very scared because she doesn't know what is wrong with her and it is getting worse. She is very emotional and crying in our office today.Memmory loss, difficulty concentrating. B12 INJECTION Ronald is here to day to receive B12 injection #4 of 6. Pt to RTC in 1 week for injection #5. B12 INJECTION RONALD IS HERE TO DAY IN OUR CLINIC TO HAVE B12 INJECTION #3 OF 6. PT TO RTC IN 1 WEEK FOR INJECTION #4. PAPERWORK PT BROUGHT PAPER WORK INTO THE OFFICE TODAY FROM [facility] REQUESTING THAT CYNTHIA FILL IT OUT FOR FOOD STAMPS. PAPERWORK GIVEN TO PROVIDER TO REVIEW. PT STATED THAT SHE IS UNABLE TO WORK AT THIS TIME AND IS HAVING TROUBLE WITH TRANSPORTATION DUE TO EXPERIENCING DOUBLE VISION AND VERTIGO. PT IS SCHEDULED TO SEE AN OPTOMOLOGIST NEXT WEEK ON 03/09/22. PT STATED THAT THE PAPERWORK IS DUE IN TWO DAYS, 03/03/22. AFTER FURTHER REVIEW, PROVIDER IS UNABLE TO FILL OUT THE FORMS AT THIS TIME. PT AWARE AND INSTRUCTED TO DISCUSS THE DISABILITY FORMS WITH HER NEON GLASS BLOWER AND/OR HER ASSISTANT LIBRARIAN. B12 INJECTION RONALD IS HERE TO DAY TO RECEIVE A B12 INJECTION, #2/6. PT TO RTC IN 1 WEEK FOR INJECTION #3. Follow up on Labs an d Medication Ronald is here today to follow up on her labs and medication. Pt states that she was diagnosed with Fibromyalgia last Monday. Her neurologist (at [facility]) took her off her BP medication as of yesterday. She also started taking a new Migraine medication. New medications are Fluoxetine 20 mg, DULoxetine 30 mg, Cyclobenzapr 10 Rheumatolgist at [facility] ([facility]) also prescribed Gabapentin but has not started taking it yet due to her insurance not wanting to cover it. Pt states she has been experiencing a low heart rate (in the 40's) that causes her to feel dizzy and fatigue. She also experiences moments of tightness in her chest that feel like she can't breath. She is also experiencing moments of freezing and hot flashes. Periods have changed and became more frequent and heavier.Labs: a1c 4.7, CBC,CMP, Creat Kin wnl, TSH elevated slightly 6.35 T4 wnl- will repeat in 6 weeks (along w/ celiac workup)Total cholesterol slilght elevated 213HDL 55LDL 135 and trigs 120Diet modifications discussed to promote overall better healthRhematology- UKSe[facility] for Psoriatic Arthritis work up Will start Guselkumab (Tremphya) q 8 weeks soonUsing triamcinalone topically prnalso started on Lyrica 75 mg bid-pending insurance approvalCyclobenaziprine 5 mg bidb12 was low- will start 6 weeks series of injections (repeat labs 6 weeks)NEURO-pt was called by NEURO to stop propanolol yesterday r/t she had a bradycardia and repeat ekg also showed bradycardiaPt had Holter monitor that showed PVC and SR Will plan to order echo and referral to cardiology for further workup if neededPropanolol d/c until clearance from cards- then may consider lower dosePt given rx and samples for Nurtec 75 mg ODT -triptan therapy contraindicated r/t atypical cp syndromePt has had topiramate in past, but caused increase in depressionAnxiety/depression-Continues with fluoxetine/duloxetine- agreeable to continue for 6 weeks of therapy then re-assessreports tiredness w/ meds- will reassess after 6 weeks Establish Care Ronald is new to establish. She has a multitude of complaints, mostly circulating myalgias and headaches. She has hx of fibromyalgia, migraines, GERD, Vit D deficiency, plaque psoriasis- she sees [facility] on 01/18/[facility] (new pt), HTN, Renal stones, and bone deficiency. MigrainesShe reports she has increased anxiety, headaches daily that cause pain in the back of her neck, blurred vision. She reports she is taking goodies powder, 1000 mg of ibuprofen at one time multiple times daily, and miodol for her headaches. She drinks 6 cups or more of caffeinated tea and coffee daily. She has never been on a triptan for migraines, she has tried topamax once for her migraines, but made her hands numb for hours and she was aggressive while on medication. She has seen Lubna Dominguez MD Neurology in past but not since 2019, and would like a referral to see her again.She was in the process of MS work-up. She will see Rhematology this month and wishes to see Neuro for this as well.Anxiety:She states she wakes from sleep with panic at least 2x weeklyshe has had hx of anxiety- was on Lexapro for about 4 months- worked ok- but she lost it and stopped the medication, and has been without it for about 4 months now. She states she has fibromyalgia- chronic joint, leg pains, feet feel like pins/needlesNo personal hx of dm, but both mother and father + hx, as well as cardiac hx.Both mother and father - mother most recentlyWants counseling at [facility]- will set up appt prior to departure today.Screening scores were high: anxiety 21, depression 25, and drug use 2 (marijuana daily)GERD:On omeprazole 20 mg bid- x 12 yearsdoes not feel this is helping much- hard to come off medENDO/COlonoscopy 2019 at [facility]- Would like GI referral to be seen againGERD education provided- encouraged to use Famaotidine bid for symptoms, do not eat after 6 pm. do not eat and lay down.Sleep with bed propped at 30 degree angle, and avoid spicy, greasy, acitic foods.Colonoscopy + polyps- due to repeat in 2 years (2021)HTN:Strong familial hx of HTN- mom,dad, sonJOHNN in office today on two reads 146/85 and 138/78Not on current medicationsOveruse of Ibuprofen- strongly encouraged the discontinuance of ibuprofen given risks/current symptomsPt smokes 1 ppp- not ready to quit cessasion advisedRheumatology: She reports she has plaque psoriasis.Also myalagiassees Rhematology on 01/18 at will start Trimpha Instructions Date Instruction Additional Infor felisa Continue use of Ice/ Heat therapyMay continue PT if desired as recommended by NeuroRTC in 1 month for Pap and monthly b12 injectionMethylprednisolone 80 mg injection todayF/u of with Rhematology for further painmanagement of inflamation, joint pain Related to Sciatica 15 minutes of sun ex posure daily to naturally raise vitamin D levelsStart taking an OTC supplement of 2000IU dailyRepeat labs in Jun Related to Vitamin D deficiency Take medications as prescribed. Avoid known triggers (such as: caffeine, chocolate, irregular sleep cycles, increased stress, alcohol, fragrances, bright/strobing lights). If unsure of triggers, keep a daily journal to help recognize migraine patterns. Counseled that overuse of analgesics (especially OTC analgesics with caffeine), can cause rebound migraine headaches. Verbalizes an understanding of all.Avoid Ibuprofen use/nsaidsContinue EmgalityF/u with NEURO after MRI, C-spine xrays tomorrow Related to Migraine, unspecified, intractable, with status migrainosus Patient currently do ing well. BP in goal range. No medication changes. Patient instructed to follow a low salt diet, continuing taking blood pressure medications as prescribed. Keep routine follow up with clinic.Avoid overuse of Ibuprofen as this can raise your BP Related to Essential (primary) hypertension Take medications as prescribed. Follow a sleep schedule. Try to engage in 30 minutes of moderate activity daily if tolerated, as exercise has been shown to improve depression symptoms Related to Depression, unspecified B-12 injection given in office today. Eat foods rich in B-12. Additional oral B12 replacement if indicated.B12 levels have returned to normal Start Monthly b12 injections if needed Related to Vitamin B12 deficiency anemia, unspecified Discussed stress red uction techniques. Take medications as prescribed. Limit caffeine and nicotine. Try to follow a set sleep schedule. Get daily moderate exercise if able to tolerate.Continue current medications Keep Appt w/ [facility] today- medication management recommended through [facility] Related to Anxiety disorder, unspecified Continue care with R heumatology for chronic myalgias Increased duloxetine today in officeContinue [facility] Start tizanidine as written by Rhematology Related to Myalgia Physical activity as tolerated. Try to engage in some form of moderate physical activity for 30 minutes most days of the week. May modify activity as needed to reduce discomfort. Try to achieve/maintain a healthy body weight to reduce strain on musculoskeletal system. Verbalizes an understanding. Related to Body mass index [BMI] 35.0-35.9, adult B12 # 5 of 6 today i n office Will recheck labs todayContinue monthly b12 injections Related to Vitamin B12 deficiency anemia, unspecified Patient instructed o f the importance of taking medications as prescribed, following a low salt diet as well as getting physical activity as tolerated. Patient advised to keep BP log daily checking each morning and before bed. Patient to call the clinic if systolic blood pressure is greater than 150 and/or diastolic blood pressure is staying greater than 90. 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 Take medications as prescribed. Limit caffeine and nicotine. Try to follow a set sleep schedule. Get daily moderate exercise if able to tolerate.Duloxetine increased to 60 mg todayRTC 2 weeks f/u on medication and BP Related to Anxiety disorder, unspecified Giving encouragement to exercise Related to Body mass index [BMI] 35.0-35.9, adult Dietary management e ducation, guidance, and counseling Related to Body mass index [BMI] 35.0-35.9, adult Flu and covid 19 pierce ster today in office You may have some mild discomfort, chills, or a sore arm in the next 24 hrs. If needed you may take tylenol per packing instructions Related to Encounter for immunization Referal made today t o Neuro Ophthalmology through [facility] will call you with an appointment time. Do not drive while experiencing double vision Related to Double vision Will repeat TSH in 2 weeks Relat ed to Subclinical iodine-deficiency hypothyroidism Keep appt with Colt meehan and RheumatologyLyrica as prescribed by RhuematologyFluoxetine/duloxetine as prescribed by pcpRaúl a follow up appointment with Neurology as previously scheduled Related to Myalgia Patient currently do ing well. BP in goal range. No medication changes. Patient instructed to follow a low salt diet, continuing taking blood pressure medications as prescribed. Keep routine follow up with clinic. Related to Essential (primary) hypertension Take medications as prescribed. Follow a sleep schedule. Try to engage in 30 minutes of moderate activity daily if tolerated, as exercise has been shown to improve depression symptoms Related to Depression, unspecified Counseled patients o n medications for reflux. Discussed lifestyle modifications including but not limited to elevating the head of the bed, limiting fatty, greasy, spicy food intake. Avoid heavy meals and caffeine intake within 2 hours of bedtime. If applicable, reduce/discontinue tobacco use and/or alcohol use, as both can make reflux symptoms worse.Continue famotidine prn Related to Esophageal reflux Discussed stress red uction techniques. Take medications as prescribed. Limit caffeine and nicotine. Try to follow a set sleep schedule. Get daily moderate exercise if able to tolerate.Continue floxetine and duloxetine as instructedConsider therapy with [facility] Related to Anxiety disorder, unspecified B-12 injection given in office today. Eat foods rich in B-12. Additional oral B12 replacement if indicated. Stop taking OTC B12- you are receiving injections- RTC next week for # 5 of 6 Related to Vitamin B12 deficiency anemia, unspecified High fiber diet. Inc rease water intake. Take any medications prescribed as directed. May use OTC medications prn for symptom relief of constipation. Iron can make you stool appear black, like blood. Related to Constipation Counseled patients o n medications for reflux. Discussed lifestyle modifications including but not limited to elevating the head of the bed, limiting fatty, greasy, spicy food intake. Avoid heavy meals and caffeine intake within 2 hours of bedtime. If applicable, reduce/discontinue tobacco use and/or alcohol use, as both can make reflux symptoms worse.Will complete Celiac work up- Try a gluten free diet Related to Esophageal reflux If you have further dizziness, soa, cp that does not stop or becomes worse, go to the ER. Do not use propanolol at this time -as this is likely the cause of your slow heart rate and dizziness. Some of your other medications may also be contributing to these symptoms, and we will continue to monitor closely.I will order an Echocardiogram. Related to Other chest pain Take medications as prescribed. Avoid known triggers (such as: caffeine, chocolate, irregular sleep cycles, increased stress, alcohol, fragrances, bright/strobing lights). If unsure of triggers, keep a daily journal to help recognize migraine patterns. Counseled that overuse of analgesics (especially OTC analgesics with caffeine), can cause rebound migraine headaches. Verbalizes an understanding of all.Continue Nuertec as per NeruoStop propanolol until further cardiac workup Related to Migraine, unspecified, intractable, with status migrainosus Discussed stress red uction techniques. Take medications as prescribed. Limit caffeine and nicotine. Try to follow a set sleep schedule. Get daily moderate exercise if able to tolerate.Continue Current medications as instructed for complete of 6 weeks- then will readdress Related to Anxiety disorder, unspecified B-12 injection given in office today. Eat foods rich in B-12. Additional oral B12 replacement if indicated. Related to Vitamin B12 deficiency anemia, unspecified Schedule a routine screening yenni mogram Related to Encntr screen mammogram for malignant neoplasm of breast Take medications as prescribed. Follow a sleep schedule. Try to engage in 30 minutes of moderate activity daily if tolerated, as exercise has been shown to improve depression symptoms Related to Depression, unspecified Discussed stress red uction techniques. Take medications as prescribed. Limit caffeine and nicotine. Try to follow a set sleep schedule. Get daily moderate exercise if able to tolerate. Related to Anxiety disorder, unspecified Take medications as prescribed. Follow a sleep schedule. Try to engage in 30 minutes of moderate low impact activity daily if tolerated, as exercise has been shown to improve depression symptoms, and decrease arthritic pain. Start taking Fluoxetine and duloxetine- the combination sometimes works better together for pain control. These are antidepressant medications.Take your depression/anxiety medications as instructed. Do not stop them abruptly. Monitor your symptoms around the 2nd week of medication. If you have suicidal or homicidal ideation, and feel you might act on them, go to the ER. Call me if this occurs. Related to Myalgia Counseled on importa nce of sleep hygiene. Maintain a consistent sleep schedule. Avoid caffeine for at least 6 hours prior to bed. Limit screen time (TV, phone, video games) before bed. Make sure bedroom is cool and dark, which improves sleep quality. If taking medications to help with insomnia, try to take at least 30 minutes before goal bed time. Aware that medications can cause daytime drowsiness. Avoid napping during the day, as it can further disrupt sleep cycle. Try to get 30 minutes of moderate physical activity daily. Verbalizes an understanding. Related to Sleep disorder, unspecified Take medications as prescribed. Avoid known triggers (such as: caffeine, chocolate, irregular sleep cycles, increased stress, alcohol, fragrances, bright/strobing lights). If unsure of triggers, keep a daily journal to help recognize migraine patterns. Counseled that overuse of analgesics (especially OTC analgesics with caffeine), can cause rebound migraine headaches. Verbalizes an understanding of all.Start taking Propranolol 80 mg ER as daily for BP control and for migraines Related to Migraine, unspecified, intractable, with status migrainosus Counseled patients o n medications for reflux. Discussed lifestyle modifications including but not limited to elevating the head of the bed, limiting fatty, greasy, spicy food intake. Avoid heavy meals and caffeine intake within 2 hours of bedtime. If applicable, reduce/discontinue tobacco use and/or alcohol use, as both can make reflux symptoms worse.Stop taking Ibuprofen- limit NSAID use Related to Esophageal reflux Patient instructed o f the importance of taking medications as prescribed, following a low salt diet as well as getting physical activity as tolerated. Patient advised to keep BP log daily checking each morning and before bed. Patient to call the clinic if systolic blood pressure is greater than 150 and/or diastolic blood pressure is staying greater than 90.Stop using Ibuprofen Related to Essential (primary) hypertension Assessments Type Assessment Date No Information
--- OUTSIDE RECORDS SUMMARY | 2024-12-09 09:28 | XMS_ITS | Encounter Summary ---
Author Organization Healthcare Address [address] [place] [address] Care Team Providers Care Sustainable Systems Analyst Name Role Phone John Hall MD Primary Care Provider + [phone] Dorie Read APRN Primary Care Provider [phone] Encounter Details Date Type Department Care Team (Late st Contact Info) Description 03/17/2022 [facility] [address] [place] [address] Dorie Read APRN [address] [place] [address] Double vision (Primary Dx); Eye pain, bilateral; [...] as of this encounter Plan of Treatment Upcoming Encounters Date Type Department Care Team (Late st Contact Info) Description 01/02/2025 1:00 PM EDT Office Visit [facility] [address] [place] [address] Russ Trujillo APRN [address] [place] [id number] documented as of this encounter Visit Diagnoses Diagnosis Double vision- Primary Diplopia Eye pain, bilateral Ophthalmoplegic migraine, not intractable documented in this encounter Care Teams Sustainable Systems Analyst Relationship Specialty Start Date End Date John Hall MD [address] [place] [address] PCP - General 12/10/21 06/09/22 Dorie Read APRN [address] [place] [address] PCP - General 06/10/22 documented as of this encounter
--- OUTSIDE RECORDS SUMMARY | 2024-12-09 09:28 | XMS_ITS | Clinical Summary ---
Author Organization Healthcare Address [address] [place] [address] Care Team Providers Care Systems Development Consultant Name Role Phone Dorie Read APRN Primary Care Provider [phone] Allergies Active Allergy Reactions Criticality Noted Date [...] anxiety with panic 01/18/2022 Panic attacks 01/18/2022 Immunizations Immunization Administration Dates Next Due Moderna [...] Petros Swain Arthritis Father's Brother 2 Dale Swain Arthritis Father's Sister 1 Veena Elwood Autoimmune disease Father's Sister 1 Veena [place]wood Cancer Father's Sister 1 Veena Elwood Autoimmune disease Father's Sister 2 LOBO VITAI Arthritis Maternal Grandmother Neeru Paz Stroke Maternal Grandmother Neeru Paz Cancer Mother [place] Paz Cervical cancer Mother Chano Paz Heart attack Mother [place] Paz Heart disease Mother [place] Paz Hypertension Mother [place] Stroke Mother [place] Stroke Mother's Brother Doe Paz Stroke Mother's Sister Chris Rose Heart disease Paternal Grandfather Dave Wiliam Autoimmune disease Paternal Grandmother Nuria Swain Arthritis [...] 2 Dale Swain Father's Sister 1 Veena Elwood Father's Sister 2 LOBO VITAI Maternal Grandmother Neeru Lynchrick Mother [place] Paz Mother's Brother Doe Paz Mother's Sister Chris Rose Paternal Grandfather Dave Swain Paternal Grandmother Nuria Swain Sister 1 Tiarra Hernandez Sister 2 Allison Rossi Son Omar Santiago Social History Tobacco Use Types Packs/Day Years Used Date Smoking Tobacco: Every Day Cigarettes 1 34.6 Started: 1990 Smokeless Tobacco: Never Tobacco Cessation:Ready [...] 01/12/2024 2:02 PM EDT Plan of Treatment Upcoming Encounters Date Type Department Care Team (Late st Contact Info) Description 01/02/2025 1:00 PM EDT Office Visit [facility] [address] [place] [address] Russ Trujillo, SHAKER OPERATOR [address] [place] [phone] Health Maintenance Due Date Last Done Comments [facility]-HIV Screening 1981 [facility]-/Child/Adol SDOH Screenings 1981 [facility]-Varicella Vaccines (1 of [...] 2002 [facility]-Cervical Cancer Screening 2011 [facility]-HPV/Cotest 2011 [id number] Vaccine ( - season) 2024 01/13/2022, 08/13/2021, 05/29/2021 [facility]-Depression Screening 01/11/2025 01/12/2024, 09/0 09/2022 [facility]-Influenza Vaccine (#1) 2025 [facility]-Hepatitis C Screening Completed 06/10/2022 [facility]-Obesity [...] Antigen Negative Negative 06/10/2022 5:38 PM EST [facility] Hepatitis C Antibody Negative Negative 06/10/2022 5:38 PM EST [facility] Hepatitis A Antibody IgM Negative Negative 06/10/2022 5:38 PM EST [facility] Hepatitis B Core Antibody IgM Negative Negative 06/10/2022 5:38 PM EST [facility] Blood Venous blood specimen / Unknown Venipuncture / Unknown 06/10/2022 11:53 AM EST 06/10/2022 11:53 AM EST us Kamari George MD LAB BLOOD ORDERABLES Fi nal Result [facility] [address] [place] [address] from Last 3 Months or Most Recently Relevant to Health Maintenance Insurance Care Teams Systems Development Consultant Relationship Specialty Start Date End Date Dorie Read APRN [address] [place] [address] PCP - General 06/10/22
--- NOTE | 2024-12-09 09:30 | US_ITS ---
PROCEDURE: US TRANSVAGINAL CLINICAL INDICATION: AUB and Pelvic Pain COMPARISON: US US TRANSVAGINAL from 06/15/[address] ABDOMEN PELVIS W CON from 05/11/2024 FINDINGS: Transvaginal sonographic images of the pelvis were obtained. UTERUS: 6.9 cm x 4.7 cmx 3.6 cm anteverted with a combined endometrial thickness of 3.1mm. There is a nabothian cyst measuring 1.0 cm in size. There is a 2nd nabothian cyst measuring 0.7 cm in size A scar is present. LEFT OVARY: 1.9 cmx1.0cmx1.1cm with a volume of 1.1ml. RIGHT OVARY: 2.2cmx 1.8 cmx1.4cm with a volume of 2.9ml. There are several small follicles. The largest measures 0.85 cm. Both ovaries are seen and appear normal. Doppler flow to both ovaries are seen. There is no fluid in the cul-de-sac. IMPRESSION: 1. Anteverted uterus normal in shape and size. The endometrium is thin measuring 3.1 mm. 2. Both ovaries are seen and appear normal. The right ovary contains 2 follicles and the largest measures 0.85 cm. 3. No fluid in the cul-de-sac. Dictated by: Ketan Valdez MD 12/09/2024 10:34 Ketan Valdez MD in OV 12/09/2024 10:34
== END 2024-12-09 23:59 | disposition home or self-care (01) ==
LOC: RAD 09:25
PROVIDERS: PCP Nurse Practitioner Family; Visit Provider Obstetrics & Gynecology
DX: N83.01 Follicular cyst of right ovary (principal); N93.9 Abnormal uterine and vaginal bleeding, unspecified
CPT/HCPCS: 76830